=== PATIENT | female | born 1975 | race Caucasian/White ===

== ENCOUNTER → 2016-11-09 | Outpatient (REF) | payer BC, MEDICAID ==
[~2016-11-09] MED LIST: /HCTZ25TA PO; ATOR40TA PO; CLAR10CA3 PO; IBUP600T26 PO; LORT1TAB PO; METF500T PO; NYST100024 TOP; OMEP20CA3 PO; PANT40TA2 PO; VICO5TAB PO
== END ==
LOC: M LAB REF 09:25
PROVIDERS: ATTEND Physician Assistant
DX: R10.11 Right upper quadrant pain (principal); R10.12 Left upper quadrant pain; R19.7 Diarrhea, unspecified

== ENCOUNTER 2016-11-13 09:24 | Emergency (ER) | payer BC, MEDICAID ==
[2016-11-13] MEDS ORDERED: ONDANSETRON 4MG/2ML VIAL (J2405) As Ordered ONE (10:07)
[2016-11-13] MEDS ORDERED: KETOROLAC 30 MG/ML VIAL (J1885) As Ordered ONE (10:07)
[2016-11-13 10:20] LABS: BASO % 0.6 % (0.0-1.0); EOS # 0.2 K/mm3 (0.0-0.50); EOS % 3.6 % (0.0-3.0); LARGE UNSTAINED CELL # 0.1 K/mm3 (0.0-0.4); LARGE UNSTAINED CELL % 1.5 % (0.0-4.0); LYMPH # 1.7 K/mm3 (1.5-4.5); LYMPH % 24.5 % (24.0-44.0); MEAN CORPUSCULAR HGB CONC 34.5 g/dl (32.0-36.5); MEAN CORPUSCULAR VOLUME 98.8 fl (80.0-96.0); MONO # 0.4 K/mm3 (0.0-0.8); MONO % 6.1 % (0.0-5.0); NEUTROPHILS # 4.5 K/mm3 (1.8-7.7); NEUTROPHILS % 63.8 % (36.0-66.0); PLATELET COUNT, AUTOMATED 278 k/mm3 (150-450); RED CELL DISTRIBUTION WIDTH 11.4 % (11.5-14.5); WHITE BLOOD COUNT 7.1 K/mm3 (4.0-10.0)
[2016-11-13 10:34] LABS: ALBUMIN 3.8 GM/DL (3.2-5.2); ALBUMIN/GLOBULIN RATIO 0.97 (1.00-1.93); ALKALINE PHOSPHATASE 81 U/L (45-117); ALT/SGPT 29 U/L (12-78); AMYLASE 44 U/L (25-115); ANION GAP 9 MEQ/L (8-16); AST/SGOT 25 U/L (15-37); BILIRUBIN,DIRECT 0.2 MG/DL (0.0-0.2); BILIRUBIN,TOTAL 0.9 MG/DL (0.2-1.0); BLOOD UREA NITROGEN 11 MG/DL (7-18); CALCIUM LEVEL 8.8 MG/DL (8.5-10.1); CARBON DIOXIDE LEVEL 28 MEQ/L (21-32); CHLORIDE LEVEL 102 MEQ/L (98-107); CREATININE FOR GFR 0.58 MG/DL (0.55-1.02); GLOMERULAR FILTRATION RATE > 60.0 (>58); GLUCOSE, FASTING 88 MG/DL (70-105); POTASSIUM SERUM 3.9 MEQ/L (3.5-5.1); SODIUM LEVEL 139 MEQ/L (136-145); TOTAL PROTEIN 7.7 GM/DL (6.4-8.2)
--- NOTE | 2016-11-13 11:33 | REP ---
Limited abdominal ultrasound of the right upper quadrant 11/13/2016 Indication: biliary colic prior gastric bypass surgery 2 years ago Comparison: CT abdomen pelvis 03/31/2016 Findings: The gallbladder is without stones wall thickening or pericholecystic fluid. The patient was not tender upon scanning over the gallbladder. The common bile duct is 4.3 mm transverse dimension within normal limits. There is a coarse calcification within the posterior right dome of liver which measures 12.3 x 8.7 x 5.1 mm , yet slightly larger in size than that seen on CT abdomen pelvis 03/31/2016. This may be secondary to old granulomatous disease. The liver is without focal lesion. The pancreas is diffusely obscured by bowel gas; also contributed to by large body habitus. The right kidney measures 11.2 x 5.5 x 4.6 cm and is without hydronephrosis. Impression: No evidence of cholelithiasis, gallbladder wall thickening, or pericholecystic fluid. Common bile duct is 4.3 mm transverse dimension within normal limits. Pancreas diffusely obscured by bowel gas/ body habitus. Single focal coarse calcification within the posterior right dome of liver, may represent calcified granuloma Right kidney without hydronephrosis Signed by Alejandra Preciado MD 11/13/2016 11:24 A
--- NOTE | 2016-11-13 11:54 | EDDOCDS ---
Physician Documentation [facility] Name: Elisabet Castañeda Age: 40 yrs Sex: Female : 1975 Arrival Date: 11/13/2016 Time: 09:24 Bed I5 / M5 Private MD: [facility] Disposition: 11/13/16 11:47 Discharged to Home/Self Care. Impression: Upper abdominal pain, unspecified, Abnormal findings on diagnostic imaging of liver and biliary tract - Calcification within posterior right dome of liver on Gallbladder U/S, Diarrhea, unspecified. - Condition is Stable. - Discharge Instructions: Abdominal Pain, Adult, Diarrhea. - Prescriptions for ZOFRAN ODT 4 mg - dissolve 1 tablet by ORAL route 4 times per day As needed do not chew, do not swallow whole; 10 tablet. ketorolac 10 mg Oral Tablet - take 1 tablet by ORAL route 3 times per day As needed MDD- 30mg. Up to 5 days total use.; 15 tablet. Bentyl 20 mg Oral Tablet - take 1 tablet by ORAL route every 6 hours As needed; 20 tablet. - Medication Reconciliation, Local Pharmacy Hours form. - Follow up: [facility] ; When: 1 - 2 days; Reason: Recheck today's complaints, Continuance of care. Follow up: Rigoberto Peña; When: Call to arrange an appointment; Reason: Further diagnostic work-up, Recheck today's complaints, Continuance of care. - Problem is new. - Symptoms have improved. Historical: - Allergies: no known allergies; - Home Meds: 1. Calcium Citrate Oral Unknown daily 2. multivitamin Oral cap 2 tab daily 3. Vitamin B-12 Oral Unknown 4. Vitamin D Oral daily 5. Claritin 10 mg Oral tab 1 tab once daily - PMHx: Diet controlled Diabetes; Seasonal Allergies; - PSHx: Cesearean Section; Uterine Ablation; mass removal left ovary; Gastric Bypass; Appendectomy; - Social history: Smoking status: Patient states former smoker of tobacco. No barriers to communication noted, The patient speaks fluent Turkmen, Speaks appropriately for age. - Family history: Not pertinent. - : The pt / caregiver states he / she is not on anticoagulants. Home medication list is obtained from the patient. - Exposure Risk Screening:: None identified. 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 7 in. (170.18 cm) (R); Pain 10/10; 10:48 BP 119 / 57; Pulse 68; Resp 20; Temp 98.9; Pulse Ox 99% ; Pain 0/10; jam1 11:43 BP 94 / 53; Pulse 57; Resp 20; Temp 98.7; Pulse Ox 98% ; Pain 0/10; jam1 09:27 Body Mass Index 30.23 (87.54 kg, 170.18 cm) mt4 MDM: 09:40 Financial registration complete. lg 09:48 [facility] Payment Agreement was scanned into [employer] and attached to record. lg 09:51 NS 0.9% 1000 ml IV at bolus once ordered. ef1 09:51 Ondansetron 4 mg IVP once ordered. ef1 09:51 ketorolac 30 mg IVP once ordered. ef1 09:51 IV Saline Lock ordered. ef1 09:51 Undress patient appropriately for examination ordered. ef1 09:52 Amylase Ordered. EDMS 09:52 Basic Metabolic Profile Ordered. EDMS 09:52 CBC with Diff Ordered. EDMS 09:52 Lipase Ordered. EDMS 09:52 Liver Profile Ordered. EDMS 09:52 Urinalysis Ordered. EDMS 09:52 Urine Culture Ordered. EDMS 09:53 Gallbladder US Ordered. EDMS 09:53 NOTHING BY MOUTH+DIET ordered. EDMS 10:45 CBC with Diff Reviewed. ef1 10:45 Liver Profile Reviewed. ef1 10:45 Amylase Reviewed. ef1 10:45 Basic Metabolic Profile Reviewed. ef1 10:45 Lipase Reviewed. ef1 10:45 Urinalysis Reviewed. ef1 Administered Medications: 10:10 Drug: NS 0.9% 1000 ml [sodium chloride 0.9 % intravenous solution] Route: IV; Rate: srm bolus; Site: left antecubital; 11:52 Follow up: IV Status: Completed infusion; IV Intake: 1000ml dsf 10:10 Drug: Ondansetron 4 mg [ondansetron HCl 2 mg/mL intravenous solution (2 mL)] Route: srm IVP; Site: left antecubital; 11:15 Follow up: Response: Nausea is resolved srm 10:11 Drug: ketorolac 30 mg [ketorolac 30 mg/mL (1 mL) injection solution (1 mL)] Route: IVP; srm Site: left antecubital; 11:15 Follow up: Response: Pain is resolved srm Signatures: Dispatcher [employer] EDMS Janneth Colon RN RN srm Wiliam Rodarte, Carlos Reg lg Neris Sanderson RN RN kr3 Marycruz Lei, PA-C PA-C ef1 Key Shah RN RN dsf The chart was reviewed and I authenticate all verbal orders and agree with the evaluation and treatment provided.Attachments: 09:48 [facility] Payment Agreement lg MTDD
--- NOTE | 2016-11-13 11:54 | EDDOCDS ---
Nurse's Notes [facility] Name: Elisabet Castañeda Age: 40 yrs Sex: Female : 1975 Arrival Date: 11/13/2016 Time: 09:24 Bed I5 / M5 Private MD: [facility] Diagnosis: Upper abdominal pain, unspecified;Abnormal findings on diagnostic imaging of liver and biliary tract-Calcification within posterior right dome of liver on Gallbladder U/S;Diarrhea, unspecified Presentation: 11/13 09:29 Presenting complaint: Patient states: stomach pains for 2 weeks. Reports constipated kr3 and than diarrhea and than constipated. seen at on Tuesday and had blood and stool evaluated and was told negative results for both. Risk factors: the patient reports no vaginal bleeding. Adult Sepsis Screening: The patient does not have new or worsening altered mentation. Patient's respiratory rate is less than 22. Systolic blood pressure is greater than 100. Patient has a qSOFA score of 0- Negative Sepsis Screen. Suicide/Homicide risk assessment- the patient denies having any suicidal and/or homicidal ideations and does not present with any other emotional, behavioral or mental health complaints. 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 Transition of care: patient was not received from another setting of care. 09:29 Acuity: SAMUEL Level 3 kr3 09:29 Method Of Arrival: Walkin/Carried/Asstd kr3 Triage Assessment: 09:31 General: Appears in no apparent distress, comfortable, Behavior is cooperative. Pain: kr3 Location: right upper quadrant and left upper quadrant Pain currently is 10 out of 10 on a pain scale. Quality of pain is described as sharp, shooting, Is intermittent. HIV screening NA for this visit Offered previously. GI: Reports constipation, diarrhea, nausea, Denies vomiting. Derm: Skin is normal, Reports skin infected around incisions on abdomen. 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 Calcium Citrate Oral Unknown daily 2. multivitamin Oral cap 2 tab daily 3. Vitamin B-12 Oral Unknown 4. Vitamin D Oral daily 5. Claritin 10 mg Oral tab 1 tab once daily - PMHx: Diet controlled Diabetes; Seasonal Allergies; - PSHx: Cesearean Section; Uterine Ablation; mass removal left ovary; Gastric Bypass; Appendectomy; - Social history: Smoking status: Patient states former smoker of tobacco. No barriers to communication noted, The patient speaks fluent Lithuanian, Speaks appropriately for age. - Family history: Not pertinent. - : The pt / caregiver states he / she is not on anticoagulants. Home medication list is obtained from the patient. - Exposure Risk Screening:: None identified. Screenin:02 Screening information is obtained from the patient. Primary language is Lithuanian. Fall jam1 risk: No risks identified. Assistance ADL's: requires no assistance with activities of daily living. Abuse/DV Screen: The patient / caregiver reports he/she is: not in a situation that causes fear, pain or injury. Nutritional screening: No deficits noted. Exposure Risk Screening: None identified. Advance Directives: Currently, there is a health care proxy, ekta castañeda of pt. There is no active DNR order. There is no living will. There is no Power of Assistant Vice President. Advance directive information has not previously been placed in an [facility] medical record. Further advance directive information is declined. home support is adequate. Assessment: 10:13 General: Appears in no apparent distress, Behavior is appropriate for age, cooperative. srm Neurological: No deficits noted. GI: Abdomen is non- distended Bowel sounds present X 4 quads. Abd is soft X 4 quads Abd is tender to palpation in left upper quadrant. Derm: No deficits noted. 11:16 Reassessment: awaiting results and PA re eval. General: Appears in no apparent srm distress, Behavior is appropriate for age, cooperative. Neurological: No deficits noted. EENT: No deficits noted. Cardiovascular: No deficits noted. Respiratory: No deficits noted. 11:52 Adult Sepsis Screening: The patient does not have new or worsening altered mentation. dsf Patient's respiratory rate is less than 22. Systolic blood pressure is greater than 100. Patient has a qSOFA score of 0- Negative Sepsis Screen. General: Appears in no apparent distress, comfortable, Behavior is appropriate for age, cooperative. Pain: Denies pain. Neurological: Level of Consciousness is awake, alert. Cardiovascular: Capillary refill < 3 seconds. Respiratory: Airway is patent Respiratory effort is even, unlabored, Respiratory pattern is regular, symmetrical. Derm: Skin is pink, warm & dry. Vital Signs: 09:27 BP 132 / 62 RA Sitting (auto/reg); Pulse 79 RA; Resp 18 S; Temp 97.2(O); Pulse Ox 100% mt4 on R/A; Weight 87.54 kg (R); Height 5 ft. 7 in. (170.18 cm) (R); Pain 10/10; 10:48 BP 119 / 57; Pulse 68; Resp 20; Temp 98.9; Pulse Ox 99% ; Pain 0/10; jam1 11:43 BP 94 / 53; Pulse 57; Resp 20; Temp 98.7; Pulse Ox 98% ; Pain 0/10; jam1 09:27 Body Mass Index 30.23 (87.54 kg, 170.18 cm) mt4 Vitals: 09:27 Log In Time: November 13, 2016 at 09:24. mi4 ED Course: 09:27 Patient visited by Yolanda Robbins. mt4 09:27 [facility] is Private Physician. mt4 09:27 Patient moved to Waiting mt4 09:28 Patient moved to Pre RCE mt4 09:29 Patient moved to Triage 2 kr3 09:30 Triage Initiated kr3 09:36 Marycruz Lei PA-C is PHCP. ef1 09:36 Casey Hernandez MD is Attending Physician. ef1 09:39 Patient visited by Marycruz Lei PA-C. ef1 09:48 [facility] Payment Agreement was scanned into [employer] and attached to record. lg 09:53 Patient moved to I5 / M5 kr3 10:02 Pt greeted and oriented to ED. Patient advised of names of staff involved in care, [facility] location of call loya, wait times and NPO status. Patient has correct armband on for positive identification. Placed in gown. Bed in low position. Call light in reach. Side rails up X 1. Adult w/ patient. Door closed. 10:05 Inserted saline lock: 20 gauge in left antecubital area and blood collected. srm 10:05 Amylase Sent. srm 10:05 Basic Metabolic Profile Sent. srm 10:05 CBC with Diff Sent. srm 10:06 Lipase Sent. srm 10:06 Liver Profile Sent. srm 10:06 Urinalysis Sent. srm 10:06 Urine Culture Sent. srm 10:10 Patient visited by Marycruz Lei PA-C. ef1 10:14 Patient visited by Janneth Colon RN. srm 10:24 Patient moved to Ultrasound sm5 10:42 Patient moved to I5 / M5 sm5 10:44 Patient visited by Marycruz Lei PA-C. ef1 11:16 Patient visited by Janneth Colon RN. srm 11:34 Gallbladder US Returned. EDMS 11:46 [facility] is Referral Physician. ef1 11:46 Rigoberto Peña is Referral Physician. ef1 11:52 The patient / caregiver is instructed regarding the plan of care and ED course. dsf 11:52 Discontinued lock intact, bleeding controlled, pressure dressing applied, No dsf redness/swelling at site. No procedures done that require assistance. Administered Medications: 10:10 Drug: NS 0.9% 1000 ml [sodium chloride 0.9 % intravenous solution] Route: IV; Rate: srm bolus; Site: left antecubital; 11:52 Follow up: IV Status: Completed infusion; IV Intake: 1000ml dsf 10:10 Drug: Ondansetron 4 mg [ondansetron HCl 2 mg/mL intravenous solution (2 mL)] Route: srm IVP; Site: left antecubital; 11:15 Follow up: Response: Nausea is resolved srm 10:11 Drug: ketorolac 30 mg [ketorolac 30 mg/mL (1 mL) injection solution (1 mL)] Route: IVP; srm Site: left antecubital; 11:15 Follow up: Response: Pain is resolved srm Intake: 11:52 IV: 1000.00ml; Total: 1000.00ml. dsf Order Results: Lab Order: Amylase; SPEC'M 11/13/16 10:03 Test: AMYLASE; Value: 44; Range: 25-115; Units: U/L; Status: F Lab Order: Basic Metabolic Profile; SPEC'M 11/13/16 10:03 Test: GLUCOSE, FASTING; Value: 88; Range: 70-105; Units: MG/DL; Status: F Test: BLOOD UREA NITROGEN; Value: 11; Range: 7-18; Units: MG/DL; Status: F Test: CREATININE FOR GFR; Value: 0.58; Range: 0.55-1.02; Units: MG/DL; Status: F Test: GLOMERULAR FILTRATION RATE; Value: > 60.0; Range: >58; Status: F Test: SODIUM LEVEL; Value: 139; Range: 136-145; Units: MEQ/L; Status: F Test: POTASSIUM SERUM; Value: 3.9; Range: 3.5-5.1; Units: MEQ/L; Status: F Test: CHLORIDE LEVEL; Value: 102; Range: 98-107; Units: MEQ/L; Status: F Test: CARBON DIOXIDE LEVEL; Value: 28; Range: 21-32; Units: MEQ/L; Status: F Test: ANION GAP; Value: 9; Range: 8-16; Units: MEQ/L; Status: F Test: CALCIUM LEVEL; Value: 8.8; Range: 8.5-10.1; Units: MG/DL; Status: F Test Note: ; Units are mL/min/1.73 m2 Chronic Kidney Disease Staging per NKF: Stage I & II GFR >=60 Normal to Mildly Decreased Stage III GFR 30-59 Moderately Decreased Stage IV GFR 15-29 Severely Decreased Stage V GFR <15 Very Little GFR Left ESRD GFR <15 on TELEPHONE ASSEMBLER Lab Order: CBC with Diff; SPEC'M 11/13/16 10:03 Test: WHITE BLOOD COUNT; Value: 7.1; Range: 4.0-10.0; Units: K/mm3; Status: F Test: RED BLOOD COUNT; Value: 4.31; Range: 4.00-5.40; Units: M/mm3; Status: F Test: HEMOGLOBIN; Value: 14.7; Range: 12.0-16.0; Units: g/dl; Status: F Test: HEMATOCRIT; Value: 42.6; Range: 36.0-47.0; Units: %; Status: F Test: MEAN CORPUSCULAR VOLUME; Value: 98.8; Range: 80.0-96.0; Abnormal: Above high normal; Units: fl; Status: F Test: MEAN CORPUSCULAR HEMOGLOBIN; Value: 34.0; Range: 27.0-33.0; Abnormal: Above high normal; Units: pg; Status: F Test: MEAN CORPUSCULAR HGB CONC; Value: 34.5; Range: 32.0-36.5; Units: g/dl; Status: F Test: RED CELL DISTRIBUTION WIDTH; Value: 11.4; Range: 11.5-14.5; Abnormal: Below low normal; Units: %; Status: F Test: PLATELET COUNT, AUTOMATED; Value: 278; Range: 150-450; Units: k/mm3; Status: F Test: NEUTROPHILS %; Value: 63.8; Range: 36.0-66.0; Units: %; Status: F Test: LYMPH %; Value: 24.5; Range: 24.0-44.0; Units: %; Status: F Test: MONO %; Value: 6.1; Range: 0.0-5.0; Abnormal: Above high normal; Units: %; Status: F Test: EOS %; Value: 3.6; Range: 0.0-3.0; Abnormal: Above high normal; Units: %; Status: F Test: BASO %; Value: 0.6; Range: 0.0-1.0; Units: %; Status: F Test: LARGE UNSTAINED CELL %; Value: 1.5; Range: 0.0-4.0; Units: %; Status: F Test: NEUTROPHILS #; Value: 4.5; Range: 1.8-7.7; Units: K/mm3; Status: F Test: LYMPH #; Value: 1.7; Range: 1.5-4.5; Units: K/mm3; Status: F Test: MONO #; Value: 0.4; Range: 0.0-0.8; Units: K/mm3; Status: F Test: EOS #; Value: 0.2; Range: 0.0-0.50; Units: K/mm3; Status: F Test: BASO #; Value: 0.0; Range: 0.0-0.2; Units: K/mm3; Status: F Test: LARGE UNSTAINED CELL #; Value: 0.1; Range: 0.0-0.4; Units: K/mm3; Status: F Lab Order: Lipase; SPEC'M 11/13/16 10:03 Test: LIPASE; Value: 173; Range: 73-393; Units: U/L; Status: F Lab Order: Liver Profile; SPEC'M 11/13/16 10:03 Test: AST/SGOT; Value: 25; Range: 15-37; Units: U/L; Status: F Test: ALT/SGPT; Value: 29; Range: 12-78; Units: U/L; Status: F Test: ALKALINE PHOSPHATASE; Value: 81; Range: 45-117; Units: U/L; Status: F Test: BILIRUBIN,TOTAL; Value: 0.9; Range: 0.2-1.0; Units: MG/DL; Status: F Test: BILIRUBIN,DIRECT; Value: 0.2; Range: 0.0-0.2; Units: MG/DL; Status: F Test: TOTAL PROTEIN; Value: 7.7; Range: 6.4-8.2; Units: GM/DL; Status: F Test: ALBUMIN; Value: 3.8; Range: 3.2-5.2; Units: GM/DL; Status: F Test: ALBUMIN/GLOBULIN RATIO; Value: 0.97; Range: 1.00-1.93; Abnormal: Below low normal; Status: F Lab Order: Urinalysis; SPEC'M 11/13/16 10:03 Test: APPEARANCE, URINE; Value: CLEAR; Range: CLEAR; Status: F Test: COLOR, URINE; Value: YELLOW; Range: YELLOW; Status: F Test: PH,URINE; Value: 7.0; Range: 5.0-9.0; Units: UNITS; Status: F Test: SPECIFIC GRAVITY URINE AUTO; Value: 1.008; Range: 1.002-1.035; Status: F Test: PROTEIN, URINE AUTO; Value: NEGATIVE; Range: NEGATIVE; Units: mg/dL; Status: F Test: GLUCOSE, URINE (UA) AUTO; Value: NEGATIVE; Range: NEGATIVE; Units: mg/dL; Status: F Test: KETONE, URINE AUTO; Value: NEGATIVE; Range: NEGATIVE; Units: mg/dL; Status: F Test: UROBILINOGEN, URINE AUTO; Value: 0.2; Range: 0.0-2.0; Units: mg/dL; Status: F Test: BILIRUBIN, URINE AUTO; Value: NEGATIVE; Range: NEGATIVE; Status: F Test: NITRITE, URINE AUTO; Value: NEGATIVE; Range: NEGATIVE; Status: F Test: LEUKOCYTE ESTERASE, URINE AUTO; Value: NEGATIVE; Range: NEGATIVE; Status: F Test: BLOOD, URINE BLOOD; Value: NEGATIVE; Range: NEGATIVE; Status: F Test: WBC, URINE AUTO; Value: 0; Range: 0-3; Units: /HPF; Status: F Test: RBC, URINE AUTO; Value: 1; Range: 0-3; Units: /HPF; Status: F Test: BACTERIA, URINE AUTO; Value: NEGATIVE; Range: NEGATIVE; Status: F Test: SQUAMOUS EPITHELIAL CELL UR AU; Value: 0; Range: 0-6; Units: /HPF; Status: F Test: HYALINE CAST, URINE AUTO; Value: 0; Range: 0-1; Units: /LPF; Status: F Radiology Order: Gallbladder US Test: Gallbladder US REASON FOR EXAMINATION: Biliary Colic; Limited abdominal ultrasound of the right upper quadrant 11/13/2016; ; Indication: biliary colic prior gastric bypass surgery 2 years ago; ; Comparison: CT abdomen pelvis 03/31/2016; ; Findings: The gallbladder is without stones wall thickening or pericholecystic; fluid. The patient was not tender upon scanning over the gallbladder.; ; The common bile duct is 4.3 mm transverse dimension within normal limits.; ; There is a coarse calcification within the posterior right dome of liver which; measures 12.3 x 8.7 x 5.1 mm , yet slightly larger in size than that seen on CT; abdomen pelvis 03/31/2016. This may be secondary to old granulomatous disease.; The liver is without focal lesion.; ; The pancreas is diffusely obscured by bowel gas; also contributed to by large; body habitus.; ; The right kidney measures 11.2 x 5.5 x 4.6 cm and is without hydronephrosis.; ; Impression:; ; No evidence of cholelithiasis, gallbladder wall thickening, or pericholecystic; fluid. Common bile duct is 4.3 mm transverse dimension within normal limits.; ; Pancreas diffusely obscured by bowel gas/ body habitus.; ; Single focal coarse calcification within the posterior right dome of liver, may; represent calcified granuloma; ; Right kidney without hydronephrosis; ; ; Signed by; Alejandra Preciado MD 11/13/2016 11:24 A; Outcome: 11:47 Discharge ordered by Provider. ef1 11:52 Discharge Assessment: Patient awake, alert and oriented x 3. No cognitive and/or dsf functional deficits noted. Patient verbalized understanding of disposition instructions. patient administered narcotics - no. The following High Risk Discharge criteria are identified: None. Discharged to home ambulatory, with significant other. Condition: stable. Discharge instructions given to patient, Instructed on discharge instructions, follow up and referral plans. medication usage, Demonstrated understanding of instructions, medications, Pt was receptive of discharge instructions/ teaching. Prescriptions given X 3. Ultrasound Study completed. Property sent home with patient. 11:53 Patient left the ED. dsf Signatures: Dispatcher [employer] EDMS Janneth Colon, RN RN srm Wan Caroline, MANAGER APPLICATION DEVELOPMENT MANAGER APPLICATION DEVELOPMENT jam1 Wiliam Rodarte, Reg Reg lg Zaida Napier 5 Neris Sanderson RN RN kr3 Yolanda Robbins mi4 Marycruz Lei, PA-C PA-C ef1 Key Shah,RN RN dsf Corrections: (The following items were deleted from the chart) 09:33 09:29 Presenting complaint: Patient states: stomach pains for 2 weeks. Reports kr3 constipated and than diarrhea and than constipated kr3 MTDD
--- NOTE | 2016-11-15 12:54 | EDDOCDS ---
Nurse's Notes [facility] Name: Elisabet Castañeda Age: 40 yrs Sex: Female : 1975 Arrival Date: 11/13/2016 Time: 09:24 Bed I5 / M5 Private MD: [facility] Diagnosis: Upper abdominal pain, unspecified;Abnormal findings on diagnostic imaging of liver and biliary tract-Calcification within posterior right dome of liver on Gallbladder U/S;Diarrhea, unspecified Presentation: 11/13 09:29 Presenting complaint: Patient states: stomach pains for 2 weeks. Reports constipated kr3 and than diarrhea and than constipated. seen at on Tuesday and had blood and stool evaluated and was told negative results for both. Risk factors: the patient reports no vaginal bleeding. Adult Sepsis Screening: The patient does not have new or worsening altered mentation. Patient's respiratory rate is less than 22. Systolic blood pressure is greater than 100. Patient has a qSOFA score of 0- Negative Sepsis Screen. Suicide/Homicide risk assessment- the patient denies having any suicidal and/or homicidal ideations and does not present with any other emotional, behavioral or mental health complaints. 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 Transition of care: patient was not received from another setting of care. 09:29 Acuity: SAMUEL Level 3 kr3 09:29 Method Of Arrival: Walkin/Carried/Asstd kr3 Triage Assessment: 09:31 General: Appears in no apparent distress, comfortable, Behavior is cooperative. Pain: kr3 Location: right upper quadrant and left upper quadrant Pain currently is 10 out of 10 on a pain scale. Quality of pain is described as sharp, shooting, Is intermittent. HIV screening NA for this visit Offered previously. GI: Reports constipation, diarrhea, nausea, Denies vomiting. Derm: Skin is normal, Reports skin infected around incisions on abdomen. 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 Calcium Citrate Oral Unknown daily 2. multivitamin Oral cap 2 tab daily 3. Vitamin B-12 Oral Unknown 4. Vitamin D Oral daily 5. Claritin 10 mg Oral tab 1 tab once daily - PMHx: Diet controlled Diabetes; Seasonal Allergies; - PSHx: Cesearean Section; Uterine Ablation; mass removal left ovary; Gastric Bypass; Appendectomy; - Social history: Smoking status: Patient states former smoker of tobacco. No barriers to communication noted, The patient speaks fluent Chinese, Speaks appropriately for age. - Family history: Not pertinent. - : The pt / caregiver states he / she is not on anticoagulants. Home medication list is obtained from the patient. - Exposure Risk Screening:: None identified. Screenin:02 Screening information is obtained from the patient. Primary language is Chinese. Fall jam1 risk: No risks identified. Assistance ADL's: requires no assistance with activities of daily living. Abuse/DV Screen: The patient / caregiver reports he/she is: not in a situation that causes fear, pain or injury. Nutritional screening: No deficits noted. Exposure Risk Screening: None identified. Advance Directives: Currently, there is a health care proxy, ekta castañeda of pt. There is no active DNR order. There is no living will. There is no Power of Service Desk Associate. Advance directive information has not previously been placed in an [facility] medical record. Further advance directive information is declined. home support is adequate. Assessment: 10:13 General: Appears in no apparent distress, Behavior is appropriate for age, cooperative. srm Neurological: No deficits noted. GI: Abdomen is non- distended Bowel sounds present X 4 quads. Abd is soft X 4 quads Abd is tender to palpation in left upper quadrant. Derm: No deficits noted. 11:16 Reassessment: awaiting results and PA re eval. General: Appears in no apparent srm distress, Behavior is appropriate for age, cooperative. Neurological: No deficits noted. EENT: No deficits noted. Cardiovascular: No deficits noted. Respiratory: No deficits noted. 11:52 Adult Sepsis Screening: The patient does not have new or worsening altered mentation. dsf Patient's respiratory rate is less than 22. Systolic blood pressure is greater than 100. Patient has a qSOFA score of 0- Negative Sepsis Screen. General: Appears in no apparent distress, comfortable, Behavior is appropriate for age, cooperative. Pain: Denies pain. Neurological: Level of Consciousness is awake, alert. Cardiovascular: Capillary refill < 3 seconds. Respiratory: Airway is patent Respiratory effort is even, unlabored, Respiratory pattern is regular, symmetrical. Derm: Skin is pink, warm & dry. Vital Signs: 09:27 BP 132 / 62 RA Sitting (auto/reg); Pulse 79 RA; Resp 18 S; Temp 97.2(O); Pulse Ox 100% mt4 on R/A; Weight 87.54 kg (R); Height 5 ft. 7 in. (170.18 cm) (R); Pain 10/10; 10:48 BP 119 / 57; Pulse 68; Resp 20; Temp 98.9; Pulse Ox 99% ; Pain 0/10; jam1 11:43 BP 94 / 53; Pulse 57; Resp 20; Temp 98.7; Pulse Ox 98% ; Pain 0/10; jam1 09:27 Body Mass Index 30.23 (87.54 kg, 170.18 cm) mt4 Vitals: 09:27 Log In Time: November 13, 2016 at 09:24. nh4 ED Course: 09:27 Patient visited by Yolanda Robbins. mt4 09:27 [facility] is Private Physician. mt4 09:27 Patient moved to Waiting mt4 09:28 Patient moved to Pre RCE mt4 09:29 Patient moved to Triage 2 kr3 09:30 Triage Initiated kr3 09:36 Marycruz Lei PA-C is PHCP. ef1 09:36 Casey Hernandez MD is Attending Physician. ef1 09:39 Patient visited by Marycruz Lei PA-C. ef1 09:48 [facility] Payment Agreement was scanned into [employer] and attached to record. lg 09:53 Patient moved to I5 / M5 kr3 10:02 Pt greeted and oriented to ED. Patient advised of names of staff involved in care, [facility] location of call loya, wait times and NPO status. Patient has correct armband on for positive identification. Placed in gown. Bed in low position. Call light in reach. Side rails up X 1. Adult w/ patient. Door closed. 10:05 Inserted saline lock: 20 gauge in left antecubital area and blood collected. srm 10:05 Amylase Sent. srm 10:05 Basic Metabolic Profile Sent. srm 10:05 CBC with Diff Sent. srm 10:06 Lipase Sent. srm 10:06 Liver Profile Sent. srm 10:06 Urinalysis Sent. srm 10:06 Urine Culture Sent. srm 10:10 Patient visited by Marycruz Lei PA-C. ef1 10:14 Patient visited by Janneth Colon RN. srm 10:24 Patient moved to Ultrasound sm5 10:42 Patient moved to I5 / M5 sm5 10:44 Patient visited by Marycruz Lei PA-C. ef1 11:16 Patient visited by Janneth Colon RN. srm 11:34 Gallbladder US Returned. EDMS 11:46 [facility] is Referral Physician. ef1 11:46 Rigoberto Peña is Referral Physician. ef1 11:52 The patient / caregiver is instructed regarding the plan of care and ED course. dsf 11:52 Discontinued lock intact, bleeding controlled, pressure dressing applied, No dsf redness/swelling at site. No procedures done that require assistance. 14:39 T-Sheet-- Draft Copy was scanned into [employer] and attached to record. gb 14:39 Radiology Report was scanned into [employer] and attached to record. gb Administered Medications: 10:10 Drug: NS 0.9% 1000 ml [sodium chloride 0.9 % intravenous solution] Route: IV; Rate: srm bolus; Site: left antecubital; 11:52 Follow up: IV Status: Completed infusion; IV Intake: 1000ml dsf 10:10 Drug: Ondansetron 4 mg [ondansetron HCl 2 mg/mL intravenous solution (2 mL)] Route: srm IVP; Site: left antecubital; 11:15 Follow up: Response: Nausea is resolved srm 10:11 Drug: ketorolac 30 mg [ketorolac 30 mg/mL (1 mL) injection solution (1 mL)] Route: IVP; srm Site: left antecubital; 11:15 Follow up: Response: Pain is resolved srm Intake: 11:52 IV: 1000.00ml; Total: 1000.00ml. dsf Order Results: Lab Order: Amylase; SPEC'M 11/13/16 10:03 Test: AMYLASE; Value: 44; Range: 25-115; Units: U/L; Status: F Lab Order: Basic Metabolic Profile; SPEC'M 11/13/16 10:03 Test: GLUCOSE, FASTING; Value: 88; Range: 70-105; Units: MG/DL; Status: F Test: BLOOD UREA NITROGEN; Value: 11; Range: 7-18; Units: MG/DL; Status: F Test: CREATININE FOR GFR; Value: 0.58; Range: 0.55-1.02; Units: MG/DL; Status: F Test: GLOMERULAR FILTRATION RATE; Value: > 60.0; Range: >58; Status: F Test: SODIUM LEVEL; Value: 139; Range: 136-145; Units: MEQ/L; Status: F Test: POTASSIUM SERUM; Value: 3.9; Range: 3.5-5.1; Units: MEQ/L; Status: F Test: CHLORIDE LEVEL; Value: 102; Range: 98-107; Units: MEQ/L; Status: F Test: CARBON DIOXIDE LEVEL; Value: 28; Range: 21-32; Units: MEQ/L; Status: F Test: ANION GAP; Value: 9; Range: 8-16; Units: MEQ/L; Status: F Test: CALCIUM LEVEL; Value: 8.8; Range: 8.5-10.1; Units: MG/DL; Status: F Test Note: ; Units are mL/min/1.73 m2 Chronic Kidney Disease Staging per NKF: Stage I & II GFR >=60 Normal to Mildly Decreased Stage III GFR 30-59 Moderately Decreased Stage IV GFR 15-29 Severely Decreased Stage V GFR <15 Very Little GFR Left ESRD GFR <15 on EARLY CHILDHOOD SPECIALIST Lab Order: CBC with Diff; SPEC'M 11/13/16 10:03 Test: WHITE BLOOD COUNT; Value: 7.1; Range: 4.0-10.0; Units: K/mm3; Status: F Test: RED BLOOD COUNT; Value: 4.31; Range: 4.00-5.40; Units: M/mm3; Status: F Test: HEMOGLOBIN; Value: 14.7; Range: 12.0-16.0; Units: g/dl; Status: F Test: HEMATOCRIT; Value: 42.6; Range: 36.0-47.0; Units: %; Status: F Test: MEAN CORPUSCULAR VOLUME; Value: 98.8; Range: 80.0-96.0; Abnormal: Above high normal; Units: fl; Status: F Test: MEAN CORPUSCULAR HEMOGLOBIN; Value: 34.0; Range: 27.0-33.0; Abnormal: Above high normal; Units: pg; Status: F Test: MEAN CORPUSCULAR HGB CONC; Value: 34.5; Range: 32.0-36.5; Units: g/dl; Status: F Test: RED CELL DISTRIBUTION WIDTH; Value: 11.4; Range: 11.5-14.5; Abnormal: Below low normal; Units: %; Status: F Test: PLATELET COUNT, AUTOMATED; Value: 278; Range: 150-450; Units: k/mm3; Status: F Test: NEUTROPHILS %; Value: 63.8; Range: 36.0-66.0; Units: %; Status: F Test: LYMPH %; Value: 24.5; Range: 24.0-44.0; Units: %; Status: F Test: MONO %; Value: 6.1; Range: 0.0-5.0; Abnormal: Above high normal; Units: %; Status: F Test: EOS %; Value: 3.6; Range: 0.0-3.0; Abnormal: Above high normal; Units: %; Status: F Test: BASO %; Value: 0.6; Range: 0.0-1.0; Units: %; Status: F Test: LARGE UNSTAINED CELL %; Value: 1.5; Range: 0.0-4.0; Units: %; Status: F Test: NEUTROPHILS #; Value: 4.5; Range: 1.8-7.7; Units: K/mm3; Status: F Test: LYMPH #; Value: 1.7; Range: 1.5-4.5; Units: K/mm3; Status: F Test: MONO #; Value: 0.4; Range: 0.0-0.8; Units: K/mm3; Status: F Test: EOS #; Value: 0.2; Range: 0.0-0.50; Units: K/mm3; Status: F Test: BASO #; Value: 0.0; Range: 0.0-0.2; Units: K/mm3; Status: F Test: LARGE UNSTAINED CELL #; Value: 0.1; Range: 0.0-0.4; Units: K/mm3; Status: F Lab Order: Lipase; SPEC'M 11/13/16 10:03 Test: LIPASE; Value: 173; Range: 73-393; Units: U/L; Status: F Lab Order: Liver Profile; SPEC'M 11/13/16 10:03 Test: AST/SGOT; Value: 25; Range: 15-37; Units: U/L; Status: F Test: ALT/SGPT; Value: 29; Range: 12-78; Units: U/L; Status: F Test: ALKALINE PHOSPHATASE; Value: 81; Range: 45-117; Units: U/L; Status: F Test: BILIRUBIN,TOTAL; Value: 0.9; Range: 0.2-1.0; Units: MG/DL; Status: F Test: BILIRUBIN,DIRECT; Value: 0.2; Range: 0.0-0.2; Units: MG/DL; Status: F Test: TOTAL PROTEIN; Value: 7.7; Range: 6.4-8.2; Units: GM/DL; Status: F Test: ALBUMIN; Value: 3.8; Range: 3.2-5.2; Units: GM/DL; Status: F Test: ALBUMIN/GLOBULIN RATIO; Value: 0.97; Range: 1.00-1.93; Abnormal: Below low normal; Status: F Lab Order: Urinalysis; SPEC'M 11/13/16 10:03 Test: APPEARANCE, URINE; Value: CLEAR; Range: CLEAR; Status: F Test: COLOR, URINE; Value: YELLOW; Range: YELLOW; Status: F Test: PH,URINE; Value: 7.0; Range: 5.0-9.0; Units: UNITS; Status: F Test: SPECIFIC GRAVITY URINE AUTO; Value: 1.008; Range: 1.002-1.035; Status: F Test: PROTEIN, URINE AUTO; Value: NEGATIVE; Range: NEGATIVE; Units: mg/dL; Status: F Test: GLUCOSE, URINE (UA) AUTO; Value: NEGATIVE; Range: NEGATIVE; Units: mg/dL; Status: F Test: KETONE, URINE AUTO; Value: NEGATIVE; Range: NEGATIVE; Units: mg/dL; Status: F Test: UROBILINOGEN, URINE AUTO; Value: 0.2; Range: 0.0-2.0; Units: mg/dL; Status: F Test: BILIRUBIN, URINE AUTO; Value: NEGATIVE; Range: NEGATIVE; Status: F Test: NITRITE, URINE AUTO; Value: NEGATIVE; Range: NEGATIVE; Status: F Test: LEUKOCYTE ESTERASE, URINE AUTO; Value: NEGATIVE; Range: NEGATIVE; Status: F Test: BLOOD, URINE BLOOD; Value: NEGATIVE; Range: NEGATIVE; Status: F Test: WBC, URINE AUTO; Value: 0; Range: 0-3; Units: /HPF; Status: F Test: RBC, URINE AUTO; Value: 1; Range: 0-3; Units: /HPF; Status: F Test: BACTERIA, URINE AUTO; Value: NEGATIVE; Range: NEGATIVE; Status: F Test: SQUAMOUS EPITHELIAL CELL UR AU; Value: 0; Range: 0-6; Units: /HPF; Status: F Test: HYALINE CAST, URINE AUTO; Value: 0; Range: 0-1; Units: /LPF; Status: F Lab Order: Urine Culture; SPEC'M 11/13/16 10:03 Test: URINE CULTURE; Value: URINE CULTURE RESULT NO GROWTH; Status: F Radiology Order: Gallbladder US Test: Gallbladder US REASON FOR EXAMINATION: Biliary Colic; Limited abdominal ultrasound of the right upper quadrant 11/13/2016; ; Indication: biliary colic prior gastric bypass surgery 2 years ago; ; Comparison: CT abdomen pelvis 03/31/2016; ; Findings: The gallbladder is without stones wall thickening or pericholecystic; fluid. The patient was not tender upon scanning over the gallbladder.; ; The common bile duct is 4.3 mm transverse dimension within normal limits.; ; There is a coarse calcification within the posterior right dome of liver which; measures 12.3 x 8.7 x 5.1 mm , yet slightly larger in size than that seen on CT; abdomen pelvis 03/31/2016. This may be secondary to old granulomatous disease.; The liver is without focal lesion.; ; The pancreas is diffusely obscured by bowel gas; also contributed to by large; body habitus.; ; The right kidney measures 11.2 x 5.5 x 4.6 cm and is without hydronephrosis.; ; Impression:; ; No evidence of cholelithiasis, gallbladder wall thickening, or pericholecystic; fluid. Common bile duct is 4.3 mm transverse dimension within normal limits.; ; Pancreas diffusely obscured by bowel gas/ body habitus.; ; Single focal coarse calcification within the posterior right dome of liver, may; represent calcified granuloma; ; Right kidney without hydronephrosis; ; ; Signed by; Alejandra Preciado MD 11/13/2016 11:24 A; Outcome: 11:47 Discharge ordered by Provider. ef1 11:52 Discharge Assessment: Patient awake, alert and oriented x 3. No cognitive and/or dsf functional deficits noted. Patient verbalized understanding of disposition instructions. patient administered narcotics - no. The following High Risk Discharge criteria are identified: None. Discharged to home ambulatory, with significant other. Condition: stable. Discharge instructions given to patient, Instructed on discharge instructions, follow up and referral plans. medication usage, Demonstrated understanding of instructions, medications, Pt was receptive of discharge instructions/ teaching. Prescriptions given X 3. Ultrasound Study completed. Property sent home with patient. 11:53 Patient left the ED. dsf Signatures: Dispatcher [employer] EDMS Janneth Colon, RN RN srm Caroline Blas, FLIGHT ATTENDANT INFLIGHT SERVICES FLIGHT ATTENDANT INFLIGHT SERVICES jam1 Minna Restrepo, Reg Reg gb Wiliam Rodarte, Reg Reg lg Zaida Napier sm5 Neris Sanderson RN RN kr3 Yolanda Robbins mt4 Marycruz Lei, PA-C PA-C ef1 Key Shah RN RN dsf Corrections: (The following items were deleted from the chart) 09:33 09:29 Presenting complaint: Patient states: stomach pains for 2 weeks. Reports kr3 constipated and than diarrhea and than constipated kr3 Chart Complete MTDD
--- NOTE | 2016-11-15 12:54 | EDDOCDS ---
Physician Documentation [facility] Name: Elisabet Castañeda Age: 40 yrs Sex: Female : 1975 Arrival Date: 11/13/2016 Time: 09:24 Bed I5 / M5 Private MD: [facility] Disposition: 11/13/16 11:47 Discharged to Home/Self Care. Impression: Upper abdominal pain, unspecified, Abnormal findings on diagnostic imaging of liver and biliary tract - Calcification within posterior right dome of liver on Gallbladder U/S, Diarrhea, unspecified. - Condition is Stable. - Discharge Instructions: Abdominal Pain, Adult, Diarrhea. - Prescriptions for ZOFRAN ODT 4 mg - dissolve 1 tablet by ORAL route 4 times per day As needed do not chew, do not swallow whole; 10 tablet. ketorolac 10 mg Oral Tablet - take 1 tablet by ORAL route 3 times per day As needed MDD- 30mg. Up to 5 days total use.; 15 tablet. Bentyl 20 mg Oral Tablet - take 1 tablet by ORAL route every 6 hours As needed; 20 tablet. - Medication Reconciliation, Local Pharmacy Hours form. - [facility]: [facility] ; When: 1 - 2 days; Reason: Recheck today's complaints, Continuance of care. Follow up: Rigoberto Peña; When: Call to arrange an appointment; Reason: Further diagnostic work-up, Recheck today's complaints, Continuance of care. - Problem is new. - Symptoms have improved. Historical: - Allergies: no known allergies; - Home Meds: 1. Calcium Citrate Oral Unknown daily 2. multivitamin Oral cap 2 tab daily 3. Vitamin B-12 Oral Unknown 4. Vitamin D Oral daily 5. Claritin 10 mg Oral tab 1 tab once daily - PMHx: Diet controlled Diabetes; Seasonal Allergies; - PSHx: Cesearean Section; Uterine Ablation; mass removal left ovary; Gastric Bypass; Appendectomy; - Social history: Smoking status: Patient states former smoker of tobacco. No barriers to communication noted, The patient speaks fluent Bulgarian, Speaks appropriately for age. - Family history: Not pertinent. - : The pt / caregiver states he / she is not on anticoagulants. Home medication list is obtained from the patient. - Exposure Risk Screening:: None identified. 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 7 in. (170.18 cm) (R); Pain 10/10; 10:48 BP 119 / 57; Pulse 68; Resp 20; Temp 98.9; Pulse Ox 99% ; Pain 0/10; jam1 11:43 BP 94 / 53; Pulse 57; Resp 20; Temp 98.7; Pulse Ox 98% ; Pain 0/10; jam1 09:27 Body Mass Index 30.23 (87.54 kg, 170.18 cm) mt4 MDM: 09:40 Financial registration complete. lg 09:48 [facility] Payment Agreement was scanned into [employer] and attached to record. lg 09:51 NS 0.9% 1000 ml IV at bolus once ordered. ef1 09:51 Ondansetron 4 mg IVP once ordered. ef1 09:51 ketorolac 30 mg IVP once ordered. ef1 09:51 IV Saline Lock ordered. ef1 09:51 Undress patient appropriately for examination ordered. ef1 09:52 Amylase Ordered. EDMS 09:52 Basic Metabolic Profile Ordered. EDMS 09:52 CBC with Diff Ordered. EDMS 09:52 Lipase Ordered. EDMS 09:52 Liver Profile Ordered. EDMS 09:52 Urinalysis Ordered. EDMS 09:52 Urine Culture Ordered. EDMS 09:53 Gallbladder US Ordered. EDMS 09:53 NOTHING BY MOUTH+DIET ordered. EDMS 10:45 CBC with Diff Reviewed. ef1 10:45 Liver Profile Reviewed. ef1 10:45 Amylase Reviewed. ef1 10:45 Basic Metabolic Profile Reviewed. ef1 10:45 Lipase Reviewed. ef1 10:45 Urinalysis Reviewed. ef1 14:39 T-Sheet-- Draft Copy was scanned into [employer] and attached to record. gb 14:39 Radiology Report was scanned into [employer] and attached to record. gb Administered Medications: 10:10 Drug: NS 0.9% 1000 ml [sodium chloride 0.9 % intravenous solution] Route: IV; Rate: srm bolus; Site: left antecubital; 11:52 Follow up: IV Status: Completed infusion; IV Intake: 1000ml dsf 10:10 Drug: Ondansetron 4 mg [ondansetron HCl 2 mg/mL intravenous solution (2 mL)] Route: srm IVP; Site: left antecubital; 11:15 Follow up: Response: Nausea is resolved srm 10:11 Drug: ketorolac 30 mg [ketorolac 30 mg/mL (1 mL) injection solution (1 mL)] Route: IVP; srm Site: left antecubital; 11:15 Follow up: Response: Pain is resolved srm Signatures: Dispatcher [employer] EDMS Janneth Colon, RN RN srm OneljuliareillyLoren singha, Reg Reg gb Wiliam Rodarte, Reg Reg lg Neris Sanderson RN RN kr3 Marycruz Lei, PA-C PA-C ef1 Key Shah RN RN dsf The chart was reviewed and I authenticate all verbal orders and agree with the evaluation and treatment provided.Attachments: 09:48 [facility] Payment Agreement lg 14:39 T-Sheet-- Draft Copy Chart Complete [facility]
--- NOTE | 2016-11-15 12:54 | EDDOCDS ---
Physician Documentation [facility] Name: Elisabet Castañeda Age: 40 yrs Sex: Female : 1975 Arrival Date: 11/13/2016 Time: 09:24 Bed I5 / M5 Private MD: [facility] Disposition: 11/13/16 11:47 Discharged to Home/Self Care. Impression: Upper abdominal pain, unspecified, Abnormal findings on diagnostic imaging of liver and biliary tract - Calcification within posterior right dome of liver on Gallbladder U/S, Diarrhea, unspecified. - Condition is Stable. - Discharge Instructions: Abdominal Pain, Adult, Diarrhea. - Prescriptions for ZOFRAN ODT 4 mg - dissolve 1 tablet by ORAL route 4 times per day As needed do not chew, do not swallow whole; 10 tablet. ketorolac 10 mg Oral Tablet - take 1 tablet by ORAL route 3 times per day As needed MDD- 30mg. Up to 5 days total use.; 15 tablet. Bentyl 20 mg Oral Tablet - take 1 tablet by ORAL route every 6 hours As needed; 20 tablet. - Medication Reconciliation, Local Pharmacy Hours form. - Follow up: [facility] ; When: 1 - 2 days; Reason: Recheck today's complaints, Continuance of care. Follow up: Rigoberto Peña; When: Call to arrange an appointment; Reason: Further diagnostic work-up, Recheck today's complaints, Continuance of care. - Problem is new. - Symptoms have improved. Historical: - Allergies: no known allergies; - Home Meds: 1. Calcium Citrate Oral Unknown daily 2. multivitamin Oral cap 2 tab daily 3. Vitamin B-12 Oral Unknown 4. Vitamin D Oral daily 5. Claritin 10 mg Oral tab 1 tab once daily - PMHx: Diet controlled Diabetes; Seasonal Allergies; - PSHx: Cesearean Section; Uterine Ablation; mass removal left ovary; Gastric Bypass; Appendectomy; - Social history: Smoking status: Patient states former smoker of tobacco. No barriers to communication noted, The patient speaks fluent Yi, Speaks appropriately for age. - Family history: Not pertinent. - : The pt / caregiver states he / she is not on anticoagulants. Home medication list is obtained from the patient. - Exposure Risk Screening:: None identified. 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 7 in. (170.18 cm) (R); Pain 10/10; 10:48 BP 119 / 57; Pulse 68; Resp 20; Temp 98.9; Pulse Ox 99% ; Pain 0/10; jam1 11:43 BP 94 / 53; Pulse 57; Resp 20; Temp 98.7; Pulse Ox 98% ; Pain 0/10; jam1 09:27 Body Mass Index 30.23 (87.54 kg, 170.18 cm) mt4 MDM: 09:40 Financial registration complete. lg 09:48 [facility] Payment Agreement was scanned into [employer] and attached to record. lg 09:51 NS 0.9% 1000 ml IV at bolus once ordered. ef1 09:51 Ondansetron 4 mg IVP once ordered. ef1 09:51 ketorolac 30 mg IVP once ordered. ef1 09:51 IV Saline Lock ordered. ef1 09:51 Undress patient appropriately for examination ordered. ef1 09:52 Amylase Ordered. EDMS 09:52 Basic Metabolic Profile Ordered. EDMS 09:52 CBC with Diff Ordered. EDMS 09:52 Lipase Ordered. EDMS 09:52 Liver Profile Ordered. EDMS 09:52 Urinalysis Ordered. EDMS 09:52 Urine Culture Ordered. EDMS 09:53 Gallbladder US Ordered. EDMS 09:53 NOTHING BY MOUTH+DIET ordered. EDMS 10:45 CBC with Diff Reviewed. ef1 10:45 Liver Profile Reviewed. ef1 10:45 Amylase Reviewed. ef1 10:45 Basic Metabolic Profile Reviewed. ef1 10:45 Lipase Reviewed. ef1 10:45 Urinalysis Reviewed. ef1 14:39 T-Sheet-- Draft Copy was scanned into [employer] and attached to record. gb 14:39 Radiology Report was scanned into [employer] and attached to record. gb Administered Medications: 10:10 Drug: NS 0.9% 1000 ml [sodium chloride 0.9 % intravenous solution] Route: IV; Rate: srm bolus; Site: left antecubital; 11:52 Follow up: IV Status: Completed infusion; IV Intake: 1000ml dsf 10:10 Drug: Ondansetron 4 mg [ondansetron HCl 2 mg/mL intravenous solution (2 mL)] Route: srm IVP; Site: left antecubital; 11:15 Follow up: Response: Nausea is resolved srm 10:11 Drug: ketorolac 30 mg [ketorolac 30 mg/mL (1 mL) injection solution (1 mL)] Route: IVP; srm Site: left antecubital; 11:15 Follow up: Response: Pain is resolved srm Signatures: Dispatcher MedHost EDMS Janneth Colon, RN RN srm OneljuliareillyLoren singha, Reg Reg gb Wiliam Rodarte, Reg Reg lg Neris Sanderson RN RN kr3 Marycruz Lei, PA-C PA-C ef1 Key Shah RN RN dsf The chart was reviewed and I authenticate all verbal orders and agree with the evaluation and treatment provided.Attachments: 09:48 [facility] Payment Agreement lg 14:39 T-Sheet-- Draft Copy Chart Complete [facility]
== END 2016-11-13 11:53 | disposition home or self-care (01) ==
LOC: M ED 09:24
DX: R10.10 Upper abdominal pain, unspecified (principal); K76.89 Other specified diseases of liver; R19.7 Diarrhea, unspecified; R11.0 Nausea; E11.9 Type 2 diabetes mellitus without complications; J30.2 Other seasonal allergic rhinitis; Z87.891 Personal history of nicotine dependence; Z79.899 Other long term (current) drug therapy; Z98.84 Bariatric surgery status
CPT/HCPCS: 36415; 76705; 80048; 80076; 81001; 82150; 83690; 85025; 87086; 96361; 96374; 96375; 99284; J1885; J2405

== ENCOUNTER 2016-11-16 14:17 | Emergency (ER) | payer BC, MEDICAID ==
[2016-11-16] MEDS ORDERED: ONDANSETRON 4MG/2ML VIAL (J2405) As Ordered ONE (16:24)
[2016-11-16] MEDS ORDERED: MORPHINE 4 MG/ML 1ML SYRINGE As Ordered ONE (16:24)
[2016-11-16 16:44] LABS: BASO # 0.2 K/mm3 (0.0-0.2); BASO % 1.9 % (0.0-1.0); EOS # 0.3 K/mm3 (0.0-0.50); EOS % 3.3 % (0.0-3.0); LARGE UNSTAINED CELL # 0.2 K/mm3 (0.0-0.4); LARGE UNSTAINED CELL % 2.2 % (0.0-4.0); LYMPH # 2.2 K/mm3 (1.5-4.5); LYMPH % 25.5 % (24.0-44.0); MEAN CORPUSCULAR HEMOGLOBIN 33.5 pg (27.0-33.0); MEAN CORPUSCULAR HGB CONC 33.9 g/dl (32.0-36.5); MEAN CORPUSCULAR VOLUME 98.9 fl (80.0-96.0); MONO # 0.5 K/mm3 (0.0-0.8); MONO % 5.9 % (0.0-5.0); NEUTROPHILS # 4.8 K/mm3 (1.8-7.7); NEUTROPHILS % 61.2 % (36.0-66.0); PLATELET COUNT, AUTOMATED 211 k/mm3 (150-450); RED CELL DISTRIBUTION WIDTH 12.6 % (11.5-14.5); WHITE BLOOD COUNT 7.8 K/mm3 (4.0-10.0)
[2016-11-16 17:06] LABS: ALBUMIN 3.1 GM/DL (3.2-5.2); ALBUMIN/GLOBULIN RATIO 1.19 (1.00-1.93); ALKALINE PHOSPHATASE 55 U/L (45-117); ALT/SGPT 22 U/L (12-78); AMYLASE 30 U/L (25-115); ANION GAP 8 MEQ/L (8-16); AST/SGOT 18 U/L (15-37); BILIRUBIN,DIRECT 0.1 MG/DL (0.0-0.2); BILIRUBIN,TOTAL 0.3 MG/DL (0.2-1.0); BLOOD UREA NITROGEN 24 MG/DL (7-18); CALCIUM LEVEL 8.1 MG/DL (8.5-10.1); CARBON DIOXIDE LEVEL 26 MEQ/L (21-32); CHLORIDE LEVEL 108 MEQ/L (98-107); CREATININE FOR GFR 0.54 MG/DL (0.55-1.02); GLOMERULAR FILTRATION RATE > 60.0 (>58); GLUCOSE, FASTING 100 MG/DL (70-105); POTASSIUM SERUM 4.1 MEQ/L (3.5-5.1); SODIUM LEVEL 142 MEQ/L (136-145); TOTAL PROTEIN 5.7 GM/DL (6.4-8.2)
[2016-11-16] MEDS ORDERED: ISOVUE-370 76% 100ML VIAL (Q9967) As Ordered ONE (17:19)
--- NOTE | 2016-11-16 18:26 | REP ---
CT ABDOMEN AND PELVIS WITH IV CONTRAST: TECHNIQUE: Axial contrast enhanced images from the lung bases to the pubic symphysis using 100 mL Isovue 370 intravenous contrast material with multiplanar reformations with sagittal and coronal reconstruction images. COMPARISON: 03/31/2016 Visualized lung bases demonstrate no infiltrate. Liver, spleen, adrenals, pancreas and kidneys appear unremarkable. There is no hydronephrosis. Gallbladder is unremarkable. There is no abdominal aortic aneurysm. I see no adenopathy. I see no free air or free fluid. No bowel wall thickening is seen. There is no evidence of diverticulitis. Pelvic structure appear unchanged. 2.2 cm cystic structure of the right ovary is unchanged since prior exam. No new pelvic mass is seen. Urinary bladder is mildly distended and grossly unremarkable. I see no anterior abdominal hernia. There does appear to be a small hiatal hernia. Small calcification is seen in the liver. IMPRESSION: No acute abnormality is identified as discussed in detail above. No evidence of diverticulitis or other acute bowel abnormality. No free air or free fluid. Signed by Jose Antonio Hernandez MD 11/16/2016 07:59 P
[2016-11-16] MEDS ORDERED: SUCRALFATE 1 GM TAB As Ordered ONE (18:50)
[2016-11-16] MEDS ORDERED: PANTOPRAZOLE 40MG TAB (PROTONIX) As Ordered ONE (18:50)
--- NOTE | 2016-11-16 19:02 | EDDOCDS ---
Nurse's Notes [facility] Name: Elisabet Castañeda Age: 41 yrs Sex: Female : 1975 Arrival Date: 11/16/2016 Time: 14:17 Bed I2 / M2 Private MD: Timothy Hull Diagnosis: Generalized abdominal pain-Likely bleeding ulcers;Anemia, unspecified-Chronic Presentation: 11/16 14:21 Presenting complaint: Patient states: Pt reports being seen here on Tuesday and ead referred to general surgery. "I woke up yesterday with really smelly gas, and then this morning I had black stools and light red blood.". Adult Sepsis Screening: The patient does not have new or worsening altered mentation. Patient's respiratory rate is less than 22. Systolic blood pressure is greater than 100. Patient has a qSOFA score of 0- Negative Sepsis Screen. Suicide/Homicide risk assessment- the patient denies having any suicidal and/or homicidal ideations and does not present with any other emotional, behavioral or mental health complaints. 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 Transition of care: patient was not received from another setting of care. 14:21 Acuity: SAMUEL Level 3 ead 14:21 Method Of Arrival: Walkin/Carried/Asstd ead Triage Assessment: 14:24 General: Appears in no apparent distress, comfortable, Behavior is appropriate for age, ead cooperative. Pain: Denies pain. HIV screening NA for this visit Offered previously. GI: Reports black stools Denies nausea, vomiting, pain. Derm: Skin is pink, warm & dry. 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 Vitamin D Oral daily 2. Vitamin B-12 Oral Unknown 3. multivitamin Oral cap 2 tab daily 4. Claritin 10 mg Oral tab 1 tab once daily 5. ketorolac 10 mg Oral tab three times a day as needed (Last dose: 11/14/2016) 6. dicyclomine 20 mg Oral tab 4 times per day (Last dose: 11/16/2016) 7. Zofran (as hydrochloride) 4 mg ODT Oral tab (Last dose: 11/16/2016 08:00) - PMHx: Diet controlled Diabetes; Seasonal Allergies; - PSHx: Uterine Ablation; Gastric Bypass; mass removal left ovary; Cesearean Section; Appendectomy; - Social history: Smoking status: Patient states former smoker of tobacco. No barriers to communication noted, The patient speaks fluent Liberian, Speaks appropriately for age. - Family history: Not pertinent. - : The pt / caregiver states he / she is not on anticoagulants. Home medication list is obtained from the patient, [employer] import data, pill bottles. - Exposure Risk Screening:: None identified. Screenin:01 Screening information is obtained from the patient. Primary language is Liberian. Fall jam1 risk: No risks identified. Assistance ADL's: requires no assistance with activities of daily living. Abuse/DV Screen: The patient / caregiver reports he/she is: not in a situation that causes fear, pain or injury. Nutritional screening: No deficits noted. Exposure Risk Screening: None identified. Advance Directives: Currently, there is no health care proxy. There is no active DNR order. There is no living will. There is no Power of Seasonal Recruiter. Advance directive information has not previously been placed in an [facility] medical record. Further advance directive information is declined. home support is adequate. Assessment: 16:31 General: Appears in no apparent distress, Behavior is appropriate for age, cooperative. srm Neurological: No deficits noted. EENT: No deficits noted. Respiratory: No deficits noted. GI: Abdomen is non- distended Bowel sounds present X 4 quads. Abd is soft and non tender X 4 quads. Reports black stools. 17:35 Reassessment: Patient appears in no apparent distress at this time. Patient states srm feeling better. Patient states symptoms have improved. 18:59 General: Appears in no apparent distress, comfortable, obese, Behavior is appropriate ms18 for age, cooperative, pleasant. Pain: Denies pain. Neurological: No deficits noted. Respiratory: Airway is patent Respiratory effort is even, unlabored. GI: Abdomen is non- distended obese. Derm: Skin is pink, warm & dry. Vital Signs: 14:18 BP 105 / 57; Pulse 96; Resp 18 S; Temp 98.6(O); Pulse Ox 100% on R/A; Weight 87.54 kg dd6 (R); Height 5 ft. 7 in. (170.18 cm) (R); 17:35 BP 125 / 63; Pulse 86; Resp 18; Pulse Ox 100% ; Pain 0/10; srm 18:35 BP 115 / 62; Pulse 83; Resp 20; Temp 98.3; Pulse Ox 100% ; Pain 0/10; jam1 14:18 Body Mass Index 30.23 (87.54 kg, 170.18 cm) dd6 Vitals: 14:18 Log In Time: November 16, 2016 at 14:16. dd6 ED Course: 14:18 Patient visited by Robert Osorio PCA. dd6 14:18 Timothy Hull DO is Private Physician. dd6 14:18 Patient moved to Waiting dd6 14:19 Patient moved to Pre RCE dd6 14:22 Triage Initiated ead 14:34 Patient moved to Triage 2 kr3 15:30 Marycruz Lei PA-C is PHCP. ef1 15:30 Lesley Phillips MD is Attending Physician. ef1 15:30 Patient visited by Marycruz Lei PA-C. ef1 15:50 Patient moved to I2 / M2 kr3 15:52 Urinalysis Sent. mdr 15:52 Urine Culture Sent. mdr 16:01 Pt greeted and oriented to ED. Patient advised of names of staff involved in care, jam1 location of call loya, wait times and NPO status. Patient has correct armband on for positive identification. Placed in gown. Bed in low position. Call light in reach. Side rails up X 1. Adult w/ patient. Door closed. 16:08 Patient visited by Marycruz Lei PA-C. ef1 16:23 Amylase Sent. srm 16:23 Basic Metabolic Profile Sent. srm 16:23 CBC with Diff Sent. srm 16:23 Lipase Sent. srm 16:23 Liver Profile Sent. srm 16:23 Inserted saline lock: 20 gauge in right antecubital area and blood collected. srm 16:31 The patient / caregiver is instructed regarding the plan of care and ED course. srm 16:32 Patient visited by Janneth Colon RN. srm 17:07 Patient visited by Marycruz Lei PA-C. ef1 17:13 [facility] Payment Agreement was scanned into [employer] and attached to record. zo 17:35 Patient visited by Janneth Colon RN. srm 17:42 Patient visited by Caroline Blas PCA. jam1 18:31 CT ABD & PELVIS: IV Contrast Only Returned. EDMS 18:32 PHCP role handed off by Marycruz Lei PA-C cc10 18:32 Jose Armando Bonilla PA-C is PHCP. cc10 18:32 Patient visited by Jose Armando Bonilla PA-C. cc10 18:59 Property sent home with patient. :Personal belongings accompany Pt. ms18 18:59 Discontinued IV lock intact, bleeding controlled, pressure dressing applied, No ms18 redness/swelling at site. No procedures done that require assistance. Administered Medications: 16:26 Drug: NS 0.9% 1000 ml [sodium chloride 0.9 % intravenous solution] Route: IV; Rate: srm bolus; Site: right antecubital; 16:26 Drug: Ondansetron 4 mg [ondansetron HCl 2 mg/mL intravenous solution (2 mL)] Route: srm IVP; Site: right antecubital; 17:35 Follow up: Response: Nausea is resolved srm 16:28 Drug: morphine 4 mg [morphine 4 mg/mL intravenous cartridge (1 mL)] Route: IVP; Site: srm right antecubital; 17:35 Follow up: BP 125 / 63; Pulse 86 bpm; Resp 18 bpm; Pulse Ox 100% ; Pain 0/10 Adult srm 18:43 CANCELLED (Other Intervention Used): omeprazole Delayed Release Capsule 20 mg PO once; cc10 swallow whole (do not crush or chew) OR open capsule, sprinkle contents over tablespoonful applesauce; swallow all immediately/do not chew pellets 18:58 Drug: Pantoprazole 40 mg [pantoprazole 40 mg tablet,delayed release (1 tabs)] Route: PO;ms18 18:59 Drug: Sucralfate 1 grams [sucralfate 1 gram tablet (1 tabs)] Route: PO; ms18 Order Results: Lab Order: Amylase; SPEC'M 11/16/16 16:19 Test: AMYLASE; Value: 30; Range: 25-115; Units: U/L; Status: F Lab Order: Basic Metabolic Profile; SPEC'M 11/16/16 16:19 Test: GLUCOSE, FASTING; Value: 100; Range: 70-105; Units: MG/DL; Status: F Test: BLOOD UREA NITROGEN; Value: 24; Range: 7-18; Abnormal: Above high normal; Units: MG/DL; Status: F Test: CREATININE FOR GFR; Value: 0.54; Range: 0.55-1.02; Abnormal: Below low normal; Units: MG/DL; Status: F Test: GLOMERULAR FILTRATION RATE; Value: > 60.0; Range: >58; Status: F Test: SODIUM LEVEL; Value: 142; Range: 136-145; Units: MEQ/L; Status: F Test: POTASSIUM SERUM; Value: 4.1; Range: 3.5-5.1; Units: MEQ/L; Status: F Test: CHLORIDE LEVEL; Value: 108; Range: 98-107; Abnormal: Above high normal; Units: MEQ/L; Status: F Test: CARBON DIOXIDE LEVEL; Value: 26; Range: 21-32; Units: MEQ/L; Status: F Test: ANION GAP; Value: 8; Range: 8-16; Units: MEQ/L; Status: F Test: CALCIUM LEVEL; Value: 8.1; Range: 8.5-10.1; Abnormal: Below low normal; Units: MG/DL; Status: F Test Note: ; Units are mL/min/1.73 m2 Chronic Kidney Disease Staging per NKF: Stage I & II GFR >=60 Normal to Mildly Decreased Stage III GFR 30-59 Moderately Decreased Stage IV GFR 15-29 Severely Decreased Stage V GFR <15 Very Little GFR Left ESRD GFR <15 on BUCKLE ASSEMBLER Lab Order: CBC with Diff; SPEC'M 11/16/16 16:19 Test: WHITE BLOOD COUNT; Value: 7.8; Range: 4.0-10.0; Units: K/mm3; Status: F Test: RED BLOOD COUNT; Value: 2.75; Range: 4.00-5.40; Abnormal: Below low normal; Units: M/mm3; Status: F Test: HEMOGLOBIN; Value: 9.2; Range: 12.0-16.0; Abnormal: Below low normal; Units: g/dl; Status: F Test: HEMATOCRIT; Value: 27.2; Range: 36.0-47.0; Abnormal: Below low normal; Units: %; Status: F Test: MEAN CORPUSCULAR VOLUME; Value: 98.9; Range: 80.0-96.0; Abnormal: Above high normal; Units: fl; Status: F Test: MEAN CORPUSCULAR HEMOGLOBIN; Value: 33.5; Range: 27.0-33.0; Abnormal: Above high normal; Units: pg; Status: F Test: MEAN CORPUSCULAR HGB CONC; Value: 33.9; Range: 32.0-36.5; Units: g/dl; Status: F Test: RED CELL DISTRIBUTION WIDTH; Value: 12.6; Range: 11.5-14.5; Units: %; Status: F Test: PLATELET COUNT, AUTOMATED; Value: 211; Range: 150-450; Units: k/mm3; Status: F Test: NEUTROPHILS %; Value: 61.2; Range: 36.0-66.0; Units: %; Status: F Test: LYMPH %; Value: 25.5; Range: 24.0-44.0; Units: %; Status: F Test: MONO %; Value: 5.9; Range: 0.0-5.0; Abnormal: Above high normal; Units: %; Status: F Test: EOS %; Value: 3.3; Range: 0.0-3.0; Abnormal: Above high normal; Units: %; Status: F Test: BASO %; Value: 1.9; Range: 0.0-1.0; Abnormal: Above high normal; Units: %; Status: F Test: LARGE UNSTAINED CELL %; Value: 2.2; Range: 0.0-4.0; Units: %; Status: F Test: NEUTROPHILS #; Value: 4.8; Range: 1.8-7.7; Units: K/mm3; Status: F Test: LYMPH #; Value: 2.2; Range: 1.5-4.5; Units: K/mm3; Status: F Test: MONO #; Value: 0.5; Range: 0.0-0.8; Units: K/mm3; Status: F Test: EOS #; Value: 0.3; Range: 0.0-0.50; Units: K/mm3; Status: F Test: BASO #; Value: 0.2; Range: 0.0-0.2; Units: K/mm3; Status: F Test: LARGE UNSTAINED CELL #; Value: 0.2; Range: 0.0-0.4; Units: K/mm3; Status: F Lab Order: Lipase; [facility] 11/16/16 16:19 Test: LIPASE; Value: 113; Range: 73-393; Units: U/L; Status: F Lab Order: Liver Profile; [facility] 11/16/16 16:19 Test: AST/SGOT; Value: 18; Range: 15-37; Units: U/L; Status: F Test: ALT/SGPT; Value: 22; Range: 12-78; Units: U/L; Status: F Test: ALKALINE PHOSPHATASE; Value: 55; Range: 45-117; Units: U/L; Status: F Test: BILIRUBIN,TOTAL; Value: 0.3; Range: 0.2-1.0; Units: MG/DL; Status: F Test: BILIRUBIN,DIRECT; Value: 0.1; Range: 0.0-0.2; Units: MG/DL; Status: F Test: TOTAL PROTEIN; Value: 5.7; Range: 6.4-8.2; Abnormal: Below low normal; Units: GM/DL; Status: F Test: ALBUMIN; Value: 3.1; Range: 3.2-5.2; Abnormal: Below low normal; Units: GM/DL; Status: F Test: ALBUMIN/GLOBULIN RATIO; Value: 1.19; Range: 1.00-1.93; Status: F Lab Order: Urinalysis; [facility] 11/16/16 15:50 Test: APPEARANCE, URINE; Value: CLEAR; Range: CLEAR; Status: F Test: COLOR, URINE; Value: YELLOW; Range: YELLOW; Status: F Test: PH,URINE; Value: 5.0; Range: 5.0-9.0; Units: UNITS; Status: F Test: SPECIFIC GRAVITY URINE AUTO; Value: 1.020; Range: 1.002-1.035; Status: F Test: PROTEIN, URINE AUTO; Value: NEGATIVE; Range: NEGATIVE; Units: mg/dL; Status: F Test: GLUCOSE, URINE (UA) AUTO; Value: NEGATIVE; Range: NEGATIVE; Units: mg/dL; Status: F Test: KETONE, URINE AUTO; Value: NEGATIVE; Range: NEGATIVE; Units: mg/dL; Status: F Test: UROBILINOGEN, URINE AUTO; Value: 0.2; Range: 0.0-2.0; Units: mg/dL; Status: F Test: BILIRUBIN, URINE AUTO; Value: NEGATIVE; Range: NEGATIVE; Status: F Test: NITRITE, URINE AUTO; Value: NEGATIVE; Range: NEGATIVE; Status: F Test: LEUKOCYTE ESTERASE, URINE AUTO; Value: NEGATIVE; Range: NEGATIVE; Status: F Test: BLOOD, URINE BLOOD; Value: NEGATIVE; Range: NEGATIVE; Status: F Test: WBC, URINE AUTO; Value: 1; Range: 0-3; Units: /HPF; Status: F Test: RBC, URINE AUTO; Value: 3; Range: 0-3; Units: /HPF; Status: F Test: BACTERIA, URINE AUTO; Value: NEGATIVE; Range: NEGATIVE; Status: F Test: SQUAMOUS EPITHELIAL CELL UR AU; Value: 0; Range: 0-6; Units: /HPF; Status: F Test: HYALINE CAST, URINE AUTO; Value: 0; Range: 0-1; Units: /LPF; Status: F Radiology Order: CT ABD & PELVIS: IV Contrast Only Test: CT ABD & PELVIS: IV Contrast Only REASON FOR EXAMINATION: Diverticulitis; CT ABDOMEN AND PELVIS WITH IV CONTRAST:; ; TECHNIQUE: Axial contrast enhanced images from the lung bases to the pubic; symphysis using 100 mL Isovue 370 intravenous contrast material with multiplanar; reformations with sagittal and coronal reconstruction images.; ; COMPARISON: 03/31/2016; ; Visualized lung bases demonstrate no infiltrate.; ; Liver, spleen, adrenals, pancreas and kidneys appear unremarkable. There is no; hydronephrosis. Gallbladder is unremarkable. There is no abdominal aortic; aneurysm. I see no adenopathy. I see no free air or free fluid. No bowel wall; thickening is seen. There is no evidence of diverticulitis. Pelvic structure; appear unchanged. 2.2 cm cystic structure of the right ovary is unchanged since; prior exam. No new pelvic mass is seen. Urinary bladder is mildly distended and; grossly unremarkable. I see no anterior abdominal hernia. There does appear to be; a small hiatal hernia. Small calcification is seen in the liver.; ; IMPRESSION:; No acute abnormality is identified as discussed in detail above. No evidence of; diverticulitis or other acute bowel abnormality. No free air or free fluid.; ; Unreviewed; Outcome: 18:39 Discharge ordered by Provider. cc10 18:59 Discharge Assessment: Patient awake, alert and oriented x 3. No cognitive and/or ms18 functional deficits noted. Patient verbalized understanding of disposition instructions. patient administered narcotics - no. The following High Risk Discharge criteria are identified: None. Discharged to home ambulatory. Condition: good Condition: stable Condition: improved. Discharge instructions given to patient, Instructed on discharge instructions, follow up and referral plans. medication usage, Demonstrated understanding of instructions, medications, Pt was receptive of discharge instructions/ teaching. Prescriptions given X 2. CT Study completed. 19:00 Patient left the ED. ms18 Signatures: Dispatcher Med[employer] EDMS Janneth Colon, RN RN tariq Blas Caroline, NEW BUSINESS CLERK NEW BUSINESS CLERK jam1 Neris Sanderson RN RN kr3 Bre Newman Daniell, NEW BUSINESS CLERK NEW BUSINESS CLERK dd6 Marycruz Lei PA-C PA-C ef1 Varsha Camacho RN RN eaJose Armando Mercado PA-C PA-C cc10 Bridgette Esparza RN RN ms18 Greg Mcdermott, NEW BUSINESS CLERK NEW BUSINESS CLERK mdr MTDD
--- NOTE | 2016-11-16 19:02 | EDDOCDS ---
Physician Documentation [facility] Name: Elisabet Castañeda Age: 41 yrs Sex: Female : 1975 Arrival Date: 11/16/2016 Time: 14:17 Bed I2 / M2 Private MD: Timothy uHll Disposition: 11/16/16 18:39 Discharged to Home/Self Care. Impression: Generalized abdominal pain - Likely bleeding ulcers, Anemia, unspecified - Chronic. - Condition is Stable. - Discharge Instructions: Peptic Ulcer Disease. - Prescriptions for omeprazole 20 mg Oral capsule,delayed release(DR/EC) - take 1 capsule by ORAL route 2 times per day; 60 capsule. Carafate 1 gram Oral Tablet - take 1 tablet by ORAL route 4 times per day take on an empty stomach, beginning on waking and last dose at bedtime; 100 tablet. - Medication Reconciliation, Local Pharmacy Hours form. - Follow up: Emergency Department; When: As needed. Follow up: Private Physician; When: Call to arrange an appointment; Reason: Wound/Symptom Recheck, Recheck today's complaints, Worsening of conditions, Continuance of care. - Problem is an ongoing problem. - Symptoms have improved. - Notes: Call Dr. Anne in the morning for follow up from today's visit. Stop taking NSAID medications. You need an upper endoscopy. Historical: - Allergies: no known allergies; - Home Meds: 1. Vitamin D Oral daily 2. Vitamin B-12 Oral Unknown 3. multivitamin Oral cap 2 tab daily 4. Claritin 10 mg Oral tab 1 tab once daily 5. ketorolac 10 mg Oral tab three times a day as needed (Last dose: 11/14/2016) 6. dicyclomine 20 mg Oral tab 4 times per day (Last dose: 11/16/2016) 7. Zofran (as hydrochloride) 4 mg ODT Oral tab (Last dose: 11/16/2016 08:00) - PMHx: Diet controlled Diabetes; Seasonal Allergies; - PSHx: Uterine Ablation; Gastric Bypass; mass removal left ovary; Cesearean Section; Appendectomy; - Social history: Smoking status: Patient states former smoker of tobacco. No barriers to communication noted, The patient speaks fluent Japanese, Speaks appropriately for age. - Family history: Not pertinent. - : The pt / caregiver states he / she is not on anticoagulants. Home medication list is obtained from the patient, [employer] import data, pill bottles. - Exposure Risk Screening:: None identified. NURSE TRANSITIONAL: 11/16 14:24 LMP N/A - Uterine ablation ead Vital Signs: 14:18 BP 105 / 57; Pulse 96; Resp 18 S; Temp 98.6(O); Pulse Ox 100% on R/A; Weight 87.54 kg / dd6 192.99 lbs (R); Height 5 ft. 7 in. (170.18 cm) (R); 17:35 BP 125 / 63; Pulse 86; Resp 18; Pulse Ox 100% ; Pain 0/10; srm 18:35 BP 115 / 62; Pulse 83; Resp 20; Temp 98.3; Pulse Ox 100% ; Pain 0/10; jam1 14:18 Body Mass Index 30.23 (87.54 kg, 170.18 cm) dd6 MDM: 15:44 NS 0.9% 1000 ml IV at bolus once ordered. ef1 15:44 IV Saline Lock ordered. ef1 15:44 Undress patient appropriately for examination ordered. ef1 15:44 Ondansetron 4 mg IVP once ordered. ef1 15:44 morphine 4 mg IVP once ordered. ef1 15:46 Amylase Ordered. EDMS 15:46 Basic Metabolic Profile Ordered. EDMS 15:46 CBC with Diff Ordered. EDMS 15:46 Lipase Ordered. EDMS 15:46 Liver Profile Ordered. EDMS 15:46 Urinalysis Ordered. EDMS 15:46 Urine Culture Ordered. EDMS 15:46 NOTHING BY MOUTH+DIET ordered. EDMS 15:46 CT ABD & PELVIS: IV Contrast Only Ordered. EDMS 17:00 Financial registration complete. zo 17:07 CBC with Diff Reviewed. ef1 17:07 Urinalysis Reviewed. ef1 17:08 Basic Metabolic Profile Reviewed. ef1 17:08 Liver Profile Reviewed. ef1 17:08 Amylase Reviewed. ef1 17:08 Lipase Reviewed. ef1 17:13 [facility] Agreement was scanned into [email or web address] and attached to record. zo 18:42 Sucralfate 1 grams PO once ordered. cc10 18:43 Pantoprazole 40 mg PO once ordered. cc10 Administered Medications: 16:26 Drug: NS 0.9% 1000 ml [sodium chloride 0.9 % intravenous solution] Route: IV; Rate: srm bolus; Site: right antecubital; 16:26 Drug: Ondansetron 4 mg [ondansetron HCl 2 mg/mL intravenous solution (2 mL)] Route: srm IVP; Site: right antecubital; 17:35 Follow up: Response: Nausea is resolved [facility] 16:28 Drug: morphine 4 mg [morphine 4 mg/mL intravenous cartridge (1 mL)] Route: IVP; Site: srm right antecubital; 17:35 Follow up: BP 125 / 63; Pulse 86 bpm; Resp 18 bpm; Pulse Ox 100% ; Pain 0/10 Adult srm 18:43 CANCELLED (Other Intervention Used): omeprazole Delayed Release Capsule 20 mg PO once; cc10 swallow whole (do not crush or chew) OR open capsule, sprinkle contents over tablespoonful applesauce; swallow all immediately/do not chew pellets 18:58 Drug: Pantoprazole 40 mg [pantoprazole 40 mg tablet,delayed release (1 tabs)] Route: PO;ms18 18:59 Drug: Sucralfate 1 grams [sucralfate 1 gram tablet (1 tabs)] Route: PO; ms18 Signatures: Dispatcher [employer] EDMS Janneth Colon RN RN srm Bre Newman Erica, PA-C PAMayela ef1 Varsha Camacho RN RN Jose Armando Chavez PA-C PAMayela cc10 Bridgette Esparza RN RN ms18 The chart was reviewed and I authenticate all verbal orders and agree with the evaluation and treatment provided.Corrections: (The following items were deleted from the chart) 18:43 18:42 omeprazole Delayed Release Capsule 20 mg PO once; swallow whole (do not crush or cc10 chew) OR open capsule, sprinkle contents over tablespoonful applesauce; swallow all immediately/do not chew pellets ordered. cc10 Attachments: 17:13 [facility] [place] Agreement zo MTDD
--- NOTE | 2016-11-18 20:02 | EDDOCDS ---
Physician Documentation [facility] Name: Elisabet Castañeda Age: 41 yrs Sex: Female : 1975 Arrival Date: 11/16/2016 Time: 14:17 Bed I2 / M2 Private MD: Timothy Hull Disposition: 11/16/16 18:39 Discharged to Home/Self Care. Impression: Generalized abdominal pain - Likely bleeding ulcers, Anemia, unspecified - Chronic. - Condition is Stable. - Discharge Instructions: Peptic Ulcer Disease. - Prescriptions for omeprazole 20 mg Oral capsule,delayed release(DR/EC) - take 1 capsule by ORAL route 2 times per day; 60 capsule. Carafate 1 gram Oral Tablet - take 1 tablet by ORAL route 4 times per day take on an empty stomach, beginning on waking and last dose at bedtime; 100 tablet. - Medication Reconciliation, Local Pharmacy Hours form. - Follow up: Emergency Department; When: As needed. Follow up: Private Physician; When: Call to arrange an appointment; Reason: Wound/Symptom Recheck, Recheck today's complaints, Worsening of conditions, Continuance of care. - Problem is an ongoing problem. - Symptoms have improved. - Notes: Call Dr. Anne in the morning for follow up from today's visit. Stop taking NSAID medications. You need an upper endoscopy. Historical: - Allergies: no known allergies; - Home Meds: 1. Vitamin D Oral daily 2. Vitamin B-12 Oral Unknown 3. multivitamin Oral cap 2 tab daily 4. Claritin 10 mg Oral tab 1 tab once daily 5. ketorolac 10 mg Oral tab three times a day as needed (Last dose: 11/14/2016) 6. dicyclomine 20 mg Oral tab 4 times per day (Last dose: 11/16/2016) 7. Zofran (as hydrochloride) 4 mg ODT Oral tab (Last dose: 11/16/2016 08:00) - PMHx: Diet controlled Diabetes; Seasonal Allergies; - PSHx: Uterine Ablation; Gastric Bypass; mass removal left ovary; Cesearean Section; Appendectomy; - Social history: Smoking status: Patient states former smoker of tobacco. No barriers to communication noted, The patient speaks fluent Amharic, Speaks appropriately for age. - Family history: Not pertinent. - : The pt / caregiver states he / she is not on anticoagulants. Home medication list is obtained from the patient, [employer] import data, pill bottles. - Exposure Risk Screening:: None identified. 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 7 in. (170.18 cm) (R); 17:35 BP 125 / 63; Pulse 86; Resp 18; Pulse Ox 100% ; Pain 0/10; srm 18:35 BP 115 / 62; Pulse 83; Resp 20; Temp 98.3; Pulse Ox 100% ; Pain 0/10; jam1 14:18 Body Mass Index 30.23 (87.54 kg, 170.18 cm) dd6 MDM: 15:44 NS 0.9% 1000 ml IV at bolus once ordered. ef1 15:44 IV Saline Lock ordered. ef1 15:44 Undress patient appropriately for examination ordered. ef1 15:44 Ondansetron 4 mg IVP once ordered. ef1 15:44 morphine 4 mg IVP once ordered. ef1 15:46 Amylase Ordered. EDMS 15:46 Basic Metabolic Profile Ordered. EDMS 15:46 CBC with Diff Ordered. EDMS 15:46 Lipase Ordered. EDMS 15:46 Liver Profile Ordered. EDMS 15:46 Urinalysis Ordered. EDMS 15:46 Urine Culture Ordered. EDMS 15:46 NOTHING BY MOUTH+DIET ordered. EDMS 15:46 CT ABD & PELVIS: IV Contrast Only Ordered. EDMS 17:00 Financial registration complete. zo 17:07 CBC with Diff Reviewed. ef1 17:07 Urinalysis Reviewed. ef1 17:08 Basic Metabolic Profile Reviewed. ef1 17:08 Liver Profile Reviewed. ef1 17:08 Amylase Reviewed. ef1 17:08 Lipase Reviewed. ef1 17:13 [facility] Payment Agreement was scanned into [employer] and attached to record. zo 18:42 Sucralfate 1 grams PO once ordered. cc10 18:43 Pantoprazole 40 mg PO once ordered. cc10 11/17 03:13 T-Sheet-- Draft Copy was scanned into [employer] and attached to record. hs2 Administered Medications: 11/16 16:26 Drug: NS 0.9% 1000 ml [sodium chloride 0.9 % intravenous solution] Route: IV; Rate: srm bolus; Site: right antecubital; 16:26 Drug: Ondansetron 4 mg [ondansetron HCl 2 mg/mL intravenous solution (2 mL)] Route: srm IVP; Site: right antecubital; 17:35 Follow up: Response: Nausea is resolved srm 16:28 Drug: morphine 4 mg [morphine 4 mg/mL intravenous cartridge (1 mL)] Route: IVP; Site: srm right antecubital; 17:35 Follow up: BP 125 / 63; Pulse 86 bpm; Resp 18 bpm; Pulse Ox 100% ; Pain 0/10 Adult srm 18:43 CANCELLED (Other Intervention Used): omeprazole Delayed Release Capsule 20 mg PO once; cc10 swallow whole (do not crush or chew) OR open capsule, sprinkle contents over tablespoonful applesauce; swallow all immediately/do not chew pellets 18:58 Drug: Pantoprazole 40 mg [pantoprazole 40 mg tablet,delayed release (1 tabs)] Route: PO;ms18 18:59 Drug: Sucralfate 1 grams [sucralfate 1 gram tablet (1 tabs)] Route: PO; ms18 Signatures: Dispatcher [employer] Janneth Powell RN RN [facility] Bre Newman Erica, PA-C PA-C ef1 Varsha Camacho RN RN ead Coniski, Colin, PA-C PA-C cc10 Bridgette Esparza RN RN ms18 Devora Guerrero, Reg Reg hs2 The chart was reviewed and I authenticate all verbal orders and agree with the evaluation and treatment provided.Corrections: (The following items were deleted from the chart) 18:43 18:42 omeprazole Delayed Release Capsule 20 mg PO once; swallow whole (do not crush or cc10 chew) OR open capsule, sprinkle contents over tablespoonful applesauce; swallow all immediately/do not chew pellets ordered. cc10 Attachments: 17:13 [facility] Payment Agreement zo 11/17 03:13 T-Sheet-- Draft Copy hs2 Chart Complete MTDD
--- NOTE | 2016-11-18 20:02 | EDDOCDS ---
Nurse's Notes [facility] Name: Elisabet Castañeda Age: 41 yrs Sex: Female : 1975 Arrival Date: 11/16/2016 Time: 14:17 Bed I2 / M2 Private MD: Timothy Hull Diagnosis: Generalized abdominal pain-Likely bleeding ulcers;Anemia, unspecified-Chronic Presentation: 11/16 14:21 Presenting complaint: Patient states: Pt reports being seen here on Tuesday and ead referred to general surgery. "I woke up yesterday with really smelly gas, and then this morning I had black stools and light red blood.". Adult Sepsis Screening: The patient does not have new or worsening altered mentation. Patient's respiratory rate is less than 22. Systolic blood pressure is greater than 100. Patient has a qSOFA score of 0- Negative Sepsis Screen. Suicide/Homicide risk assessment- the patient denies having any suicidal and/or homicidal ideations and does not present with any other emotional, behavioral or mental health complaints. 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 Transition of care: patient was not received from another setting of care. 14:21 Acuity: SAMUEL Level 3 ead 14:21 Method Of Arrival: Walkin/Carried/Asstd ead Triage Assessment: 14:24 General: Appears in no apparent distress, comfortable, Behavior is appropriate for age, ead cooperative. Pain: Denies pain. HIV screening NA for this visit Offered previously. GI: Reports black stools Denies nausea, vomiting, pain. Derm: Skin is pink, warm & dry. 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 Vitamin D Oral daily 2. Vitamin B-12 Oral Unknown 3. multivitamin Oral cap 2 tab daily 4. Claritin 10 mg Oral tab 1 tab once daily 5. ketorolac 10 mg Oral tab three times a day as needed (Last dose: 11/14/2016) 6. dicyclomine 20 mg Oral tab 4 times per day (Last dose: 11/16/2016) 7. Zofran (as hydrochloride) 4 mg ODT Oral tab (Last dose: 11/16/2016 08:00) - PMHx: Diet controlled Diabetes; Seasonal Allergies; - PSHx: Uterine Ablation; Gastric Bypass; mass removal left ovary; Cesearean Section; Appendectomy; - Social history: Smoking status: Patient states former smoker of tobacco. No barriers to communication noted, The patient speaks fluent Burmese, Speaks appropriately for age. - Family history: Not pertinent. - : The pt / caregiver states he / she is not on anticoagulants. Home medication list is obtained from the patient, [employer] import data, pill bottles. - Exposure Risk Screening:: None identified. Screenin:01 Screening information is obtained from the patient. Primary language is Burmese. Fall jam1 risk: No risks identified. Assistance ADL's: requires no assistance with activities of daily living. Abuse/DV Screen: The patient / caregiver reports he/she is: not in a situation that causes fear, pain or injury. Nutritional screening: No deficits noted. Exposure Risk Screening: None identified. Advance Directives: Currently, there is no health care proxy. There is no active DNR order. There is no living will. 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 Advance directive information has not previously been placed in an [facility] medical record. Further advance directive information is declined. home support is adequate. Assessment: 16:31 General: Appears in no apparent distress, Behavior is appropriate for age, cooperative. srm Neurological: No deficits noted. EENT: No deficits noted. Respiratory: No deficits noted. GI: Abdomen is non- distended Bowel sounds present X 4 quads. Abd is soft and non tender X 4 quads. Reports black stools. 17:35 Reassessment: Patient appears in no apparent distress at this time. Patient states srm feeling better. Patient states symptoms have improved. 18:59 General: Appears in no apparent distress, comfortable, obese, Behavior is appropriate ms18 for age, cooperative, pleasant. Pain: Denies pain. Neurological: No deficits noted. Respiratory: Airway is patent Respiratory effort is even, unlabored. GI: Abdomen is non- distended obese. Derm: Skin is pink, warm & dry. Vital Signs: 14:18 BP 105 / 57; Pulse 96; Resp 18 S; Temp 98.6(O); Pulse Ox 100% on R/A; Weight 87.54 kg dd6 (R); Height 5 ft. 7 in. (170.18 cm) (R); 17:35 BP 125 / 63; Pulse 86; Resp 18; Pulse Ox 100% ; Pain 0/10; srm 18:35 BP 115 / 62; Pulse 83; Resp 20; Temp 98.3; Pulse Ox 100% ; Pain 0/10; jam1 14:18 Body Mass Index 30.23 (87.54 kg, 170.18 cm) dd6 Vitals: 14:18 Log In Time: November 16, 2016 at 14:16. dd6 ED Course: 14:18 Patient visited by Robert Osorio PCA. dd6 14:18 Timothy Hull DO is Private Physician. dd6 14:18 Patient moved to Waiting dd6 14:19 Patient moved to Pre RCE dd6 14:22 Triage Initiated ead 14:34 Patient moved to Triage 2 kr3 15:30 Marycruz Lei PA-C is PHCP. ef1 15:30 Lesley Phillips MD is Attending Physician. ef1 15:30 Patient visited by Marycruz Lei PA-C. ef1 15:50 Patient moved to I2 / M2 kr3 15:52 Urinalysis Sent. mdr 15:52 Urine Culture Sent. mdr 16:01 Pt greeted and oriented to ED. Patient advised of names of staff involved in care, jam1 location of call loya, wait times and NPO status. Patient has correct armband on for positive identification. Placed in gown. Bed in low position. Call light in reach. Side rails up X 1. Adult w/ patient. Door closed. 16:08 Patient visited by Marycruz Lei PA-C. ef1 16:23 Amylase Sent. srm 16:23 Basic Metabolic Profile Sent. srm 16:23 CBC with Diff Sent. srm 16:23 Lipase Sent. srm 16:23 Liver Profile Sent. srm 16:23 Inserted saline lock: 20 gauge in right antecubital area and blood collected. srm 16:31 The patient / caregiver is instructed regarding the plan of care and ED course. srm 16:32 Patient visited by Janneth Colon RN. srm 17:07 Patient visited by Marycruz Lei PA-C. ef1 17:13 [facility] Payment Agreement was scanned into [employer] and attached to record. zo 17:35 Patient visited by Janneth Colon RN. srm 17:42 Patient visited by Caroline Blas PCA. [email or web address] 18:31 CT ABD & PELVIS: IV Contrast Only Returned. EDMS 18:32 PHCP role handed off by Marycruz Lei PA-C cc10 18:32 Jose Armando Bonilla PA-C is PHCP. cc10 18:32 Patient visited by Jose Armando Bonilla PA-C. cc10 18:59 Property sent home with patient. :Personal belongings accompany Pt. ms18 18:59 Discontinued IV lock intact, bleeding controlled, pressure dressing applied, No ms18 redness/swelling at site. No procedures done that require assistance. 11/17 03:13 T-Sheet-- Draft Copy was scanned into [employer] and attached to record. hs2 Administered Medications: 11/16 16:26 Drug: NS 0.9% 1000 ml [sodium chloride 0.9 % intravenous solution] Route: IV; Rate: srm bolus; Site: right antecubital; 16:26 Drug: Ondansetron 4 mg [ondansetron HCl 2 mg/mL intravenous solution (2 mL)] Route: srm IVP; Site: right antecubital; 17:35 Follow up: Response: Nausea is resolved srm 16:28 Drug: morphine 4 mg [morphine 4 mg/mL intravenous cartridge (1 mL)] Route: IVP; Site: srm right antecubital; 17:35 Follow up: BP 125 / 63; Pulse 86 bpm; Resp 18 bpm; Pulse Ox 100% ; Pain 0/10 Adult srm 18:43 CANCELLED (Other Intervention Used): omeprazole Delayed Release Capsule 20 mg PO once; cc10 swallow whole (do not crush or chew) OR open capsule, sprinkle contents over tablespoonful applesauce; swallow all immediately/do not chew pellets 18:58 Drug: Pantoprazole 40 mg [pantoprazole 40 mg tablet,delayed release (1 tabs)] Route: PO;ms18 18:59 Drug: Sucralfate 1 grams [sucralfate 1 gram tablet (1 tabs)] Route: PO; ms18 Order Results: Lab Order: Amylase; SPEC'M 11/16/16 16:19 Test: AMYLASE; Value: 30; Range: 25-115; Units: U/L; Status: F Lab Order: Basic Metabolic Profile; SPEC'M 11/16/16 16:19 Test: GLUCOSE, FASTING; Value: 100; Range: 70-105; Units: MG/DL; Status: F Test: BLOOD UREA NITROGEN; Value: 24; Range: 7-18; Abnormal: Above high normal; Units: MG/DL; Status: F Test: CREATININE FOR GFR; Value: 0.54; Range: 0.55-1.02; Abnormal: Below low normal; Units: MG/DL; Status: F Test: GLOMERULAR FILTRATION RATE; Value: > 60.0; Range: >58; Status: F Test: SODIUM LEVEL; Value: 142; Range: 136-145; Units: MEQ/L; Status: F Test: POTASSIUM SERUM; Value: 4.1; Range: 3.5-5.1; Units: MEQ/L; Status: F Test: CHLORIDE LEVEL; Value: 108; Range: 98-107; Abnormal: Above high normal; Units: MEQ/L; Status: F Test: CARBON DIOXIDE LEVEL; Value: 26; Range: 21-32; Units: MEQ/L; Status: F Test: ANION GAP; Value: 8; Range: 8-16; Units: MEQ/L; Status: F Test: CALCIUM LEVEL; Value: 8.1; Range: 8.5-10.1; Abnormal: Below low normal; Units: MG/DL; Status: F Test Note: ; Units are mL/min/1.73 m2 Chronic Kidney Disease Staging per NKF: Stage I & II GFR >=60 Normal to Mildly Decreased Stage III GFR 30-59 Moderately Decreased Stage IV GFR 15-29 Severely Decreased Stage V GFR <15 Very Little GFR Left ESRD GFR <15 on PREPARATION DEPARTMENT SUPERVISOR Lab Order: CBC with Diff; SPEC'M 11/16/16 16:19 Test: WHITE BLOOD COUNT; Value: 7.8; Range: 4.0-10.0; Units: K/mm3; Status: F Test: RED BLOOD COUNT; Value: 2.75; Range: 4.00-5.40; Abnormal: Below low normal; Units: M/mm3; Status: F Test: HEMOGLOBIN; Value: 9.2; Range: 12.0-16.0; Abnormal: Below low normal; Units: g/dl; Status: F Test: HEMATOCRIT; Value: 27.2; Range: 36.0-47.0; Abnormal: Below low normal; Units: %; Status: F Test: MEAN CORPUSCULAR VOLUME; Value: 98.9; Range: 80.0-96.0; Abnormal: Above high normal; Units: fl; Status: F Test: MEAN CORPUSCULAR HEMOGLOBIN; Value: 33.5; Range: 27.0-33.0; Abnormal: Above high normal; Units: pg; Status: F Test: MEAN CORPUSCULAR HGB CONC; Value: 33.9; Range: 32.0-36.5; Units: g/dl; Status: F Test: RED CELL DISTRIBUTION WIDTH; Value: 12.6; Range: 11.5-14.5; Units: %; Status: F Test: PLATELET COUNT, AUTOMATED; Value: 211; Range: 150-450; Units: k/mm3; Status: F Test: NEUTROPHILS %; Value: 61.2; Range: 36.0-66.0; Units: %; Status: F Test: LYMPH %; Value: 25.5; Range: 24.0-44.0; Units: %; Status: F Test: MONO %; Value: 5.9; Range: 0.0-5.0; Abnormal: Above high normal; Units: %; Status: F Test: EOS %; Value: 3.3; Range: 0.0-3.0; Abnormal: Above high normal; Units: %; Status: F Test: BASO %; Value: 1.9; Range: 0.0-1.0; Abnormal: Above high normal; Units: %; Status: F Test: LARGE UNSTAINED CELL %; Value: 2.2; Range: 0.0-4.0; Units: %; Status: F Test: NEUTROPHILS #; Value: 4.8; Range: 1.8-7.7; Units: K/mm3; Status: F Test: LYMPH #; Value: 2.2; Range: 1.5-4.5; Units: K/mm3; Status: F Test: MONO #; Value: 0.5; Range: 0.0-0.8; Units: K/mm3; Status: F Test: EOS #; Value: 0.3; Range: 0.0-0.50; Units: K/mm3; Status: F Test: BASO #; Value: 0.2; Range: 0.0-0.2; Units: K/mm3; Status: F Test: LARGE UNSTAINED CELL #; Value: 0.2; Range: 0.0-0.4; Units: K/mm3; Status: F Lab Order: Lipase; [facility] 11/16/16 16:19 Test: LIPASE; Value: 113; Range: 73-393; Units: U/L; Status: F Lab Order: Liver Profile; [facility] 11/16/16 16:19 Test: AST/SGOT; Value: 18; Range: 15-37; Units: U/L; Status: F Test: ALT/SGPT; Value: 22; Range: 12-78; Units: U/L; Status: F Test: ALKALINE PHOSPHATASE; Value: 55; Range: 45-117; Units: U/L; Status: F Test: BILIRUBIN,TOTAL; Value: 0.3; Range: 0.2-1.0; Units: MG/DL; Status: F Test: BILIRUBIN,DIRECT; Value: 0.1; Range: 0.0-0.2; Units: MG/DL; Status: F Test: TOTAL PROTEIN; Value: 5.7; Range: 6.4-8.2; Abnormal: Below low normal; Units: GM/DL; Status: F Test: ALBUMIN; Value: 3.1; Range: 3.2-5.2; Abnormal: Below low normal; Units: GM/DL; Status: F Test: ALBUMIN/GLOBULIN RATIO; Value: 1.19; Range: 1.00-1.93; Status: F Lab Order: Urinalysis; [facility] 11/16/16 15:50 Test: APPEARANCE, URINE; Value: CLEAR; Range: CLEAR; Status: F Test: COLOR, URINE; Value: YELLOW; Range: YELLOW; Status: F Test: PH,URINE; Value: 5.0; Range: 5.0-9.0; Units: UNITS; Status: F Test: SPECIFIC GRAVITY URINE AUTO; Value: 1.020; Range: 1.002-1.035; Status: F Test: PROTEIN, URINE AUTO; Value: NEGATIVE; Range: NEGATIVE; Units: mg/dL; Status: F Test: GLUCOSE, URINE (UA) AUTO; Value: NEGATIVE; Range: NEGATIVE; Units: mg/dL; Status: F Test: KETONE, URINE AUTO; Value: NEGATIVE; Range: NEGATIVE; Units: mg/dL; Status: F Test: UROBILINOGEN, URINE AUTO; Value: 0.2; Range: 0.0-2.0; Units: mg/dL; Status: F Test: BILIRUBIN, URINE AUTO; Value: NEGATIVE; Range: NEGATIVE; Status: F Test: NITRITE, URINE AUTO; Value: NEGATIVE; Range: NEGATIVE; Status: F Test: LEUKOCYTE ESTERASE, URINE AUTO; Value: NEGATIVE; Range: NEGATIVE; Status: F Test: BLOOD, URINE BLOOD; Value: NEGATIVE; Range: NEGATIVE; Status: F Test: WBC, URINE AUTO; Value: 1; Range: 0-3; Units: /HPF; Status: F Test: RBC, URINE AUTO; Value: 3; Range: 0-3; Units: /HPF; Status: F Test: BACTERIA, URINE AUTO; Value: NEGATIVE; Range: NEGATIVE; Status: F Test: SQUAMOUS EPITHELIAL CELL UR AU; Value: 0; Range: 0-6; Units: /HPF; Status: F Test: HYALINE CAST, URINE AUTO; Value: 0; Range: 0-1; Units: /LPF; Status: F Lab Order: Urine Culture; SPEC'M 11/16/16 15:50 Test: URINE CULTURE; Value: <EXTERNAL COMMENT eCWMed> FULL REPORT IN LAB NOTES (eCW and Medent).; Status: F Test: URINE CULTURE; Value: URINE CULTURE RESULT NO GROWTH; Status: F Radiology Order: CT ABD & PELVIS: IV Contrast Only Test: CT ABD & PELVIS: IV Contrast Only REASON FOR EXAMINATION: Diverticulitis; CT ABDOMEN AND PELVIS WITH IV CONTRAST:; ; TECHNIQUE: Axial contrast enhanced images from the lung bases to the pubic; symphysis using 100 mL Isovue 370 intravenous contrast material with multiplanar; reformations with sagittal and coronal reconstruction images.; ; COMPARISON: 03/31/2016; ; Visualized lung bases demonstrate no infiltrate.; ; Liver, spleen, adrenals, pancreas and kidneys appear unremarkable. There is no; hydronephrosis. Gallbladder is unremarkable. There is no abdominal aortic; aneurysm. I see no adenopathy. I see no free air or free fluid. No bowel wall; thickening is seen. There is no evidence of diverticulitis. Pelvic structure; appear unchanged. 2.2 cm cystic structure of the right ovary is unchanged since; prior exam. No new pelvic mass is seen. Urinary bladder is mildly distended and; grossly unremarkable. I see no anterior abdominal hernia. There does appear to be; a small hiatal hernia. Small calcification is seen in the liver.; ; IMPRESSION:; ; No acute abnormality is identified as discussed in detail above. No evidence of; diverticulitis or other acute bowel abnormality. No free air or free fluid.; ; ; Signed by; Jose Antonio Hernandez MD 11/16/2016 07:59 P; Outcome: 18:39 Discharge ordered by Provider. cc10 18:59 Discharge Assessment: Patient awake, alert and oriented x 3. No cognitive and/or ms18 functional deficits noted. Patient verbalized understanding of disposition instructions. patient administered narcotics - no. The following High Risk Discharge criteria are identified: None. Discharged to home ambulatory. Condition: good Condition: stable Condition: improved. Discharge instructions given to patient, Instructed on discharge instructions, follow up and referral plans. medication usage, Demonstrated understanding of instructions, medications, Pt was receptive of discharge instructions/ teaching. Prescriptions given X 2. CT Study completed. 19:00 Patient left the ED. ms18 Signatures: Dispatcher [employer] EDMS Janneth Colon, RN RN tariq Caroline Blas, COTTON GIN YARD SUPERVISOR COTTON GIN YARD SUPERVISOR jam1 Neris Sanderson RN RN kr3 Bre Newman Daniell, COTTON GIN YARD SUPERVISOR COTTON GIN YARD SUPERVISOR dd6 Marycruz Lei, PA-C PA-C ef1 Varsha Camacho RN RN ead Coniski, Colin, PA-C PA-C cc10 Bridgette Esparza RN RN ms18 Greg Mcdermott, COTTON GIN YARD SUPERVISOR COTTON GIN YARD SUPERVISOR mdr Devora Guerrero, Reg Reg hs2 Chart Complete MTDD
--- NOTE | 2016-11-18 20:02 | EDDOCDS ---
Physician Documentation [facility] Name: Elisabet Castañeda Age: 41 yrs Sex: Female : 1975 Arrival Date: 11/16/2016 Time: 14:17 Bed I2 / M2 Private MD: Timothy Hull Disposition: 11/16/16 18:39 Discharged to Home/Self Care. Impression: Generalized abdominal pain - Likely bleeding ulcers, Anemia, unspecified - Chronic. - Condition is Stable. - Discharge Instructions: Peptic Ulcer Disease. - Prescriptions for omeprazole 20 mg Oral capsule,delayed release(DR/EC) - take 1 capsule by ORAL route 2 times per day; 60 capsule. Carafate 1 gram Oral Tablet - take 1 tablet by ORAL route 4 times per day take on an empty stomach, beginning on waking and last dose at bedtime; 100 tablet. - Medication Reconciliation, Local Pharmacy Hours form. - Follow up: Emergency Department; When: As needed. Follow up: Private Physician; When: Call to arrange an appointment; Reason: Wound/Symptom Recheck, Recheck today's complaints, Worsening of conditions, Continuance of care. - Problem is an ongoing problem. - Symptoms have improved. - Notes: Call Dr. Anne in the morning for follow up from today's visit. Stop taking NSAID medications. You need an upper endoscopy. Historical: - Allergies: no known allergies; - Home Meds: 1. Vitamin D Oral daily 2. Vitamin B-12 Oral Unknown 3. multivitamin Oral cap 2 tab daily 4. Claritin 10 mg Oral tab 1 tab once daily 5. ketorolac 10 mg Oral tab three times a day as needed (Last dose: 11/14/2016) 6. dicyclomine 20 mg Oral tab 4 times per day (Last dose: 11/16/2016) 7. Zofran (as hydrochloride) 4 mg ODT Oral tab (Last dose: 11/16/2016 08:00) - PMHx: Diet controlled Diabetes; Seasonal Allergies; - PSHx: Uterine Ablation; Gastric Bypass; mass removal left ovary; Cesearean Section; Appendectomy; - Social history: Smoking status: Patient states former smoker of tobacco. No barriers to communication noted, The patient speaks fluent Amharic, Speaks appropriately for age. - Family history: Not pertinent. - : The pt / caregiver states he / she is not on anticoagulants. Home medication list is obtained from the patient, [employer] import data, pill bottles. - Exposure Risk Screening:: None identified. 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 7 in. (170.18 cm) (R); 17:35 BP 125 / 63; Pulse 86; Resp 18; Pulse Ox 100% ; Pain 0/10; srm 18:35 BP 115 / 62; Pulse 83; Resp 20; Temp 98.3; Pulse Ox 100% ; Pain 0/10; jam1 14:18 Body Mass Index 30.23 (87.54 kg, 170.18 cm) dd6 MDM: 15:44 NS 0.9% 1000 ml IV at bolus once ordered. ef1 15:44 IV Saline Lock ordered. ef1 15:44 Undress patient appropriately for examination ordered. ef1 15:44 Ondansetron 4 mg IVP once ordered. ef1 15:44 morphine 4 mg IVP once ordered. ef1 15:46 Amylase Ordered. EDMS 15:46 Basic Metabolic Profile Ordered. EDMS 15:46 CBC with Diff Ordered. EDMS 15:46 Lipase Ordered. EDMS 15:46 Liver Profile Ordered. EDMS 15:46 Urinalysis Ordered. EDMS 15:46 Urine Culture Ordered. EDMS 15:46 NOTHING BY MOUTH+DIET ordered. EDMS 15:46 CT ABD & PELVIS: IV Contrast Only Ordered. EDMS 17:00 Financial registration complete. zo 17:07 CBC with Diff Reviewed. ef1 17:07 Urinalysis Reviewed. ef1 17:08 Basic Metabolic Profile Reviewed. ef1 17:08 Liver Profile Reviewed. ef1 17:08 Amylase Reviewed. ef1 17:08 Lipase Reviewed. ef1 17:13 [facility] was scanned into [employer] and attached to record. zo 18:42 Sucralfate 1 grams PO once ordered. cc10 18:43 Pantoprazole 40 mg PO once ordered. cc10 11/17 03:13 T-Sheet-- Draft Copy was scanned into [employer] and attached to record. hs2 Administered Medications: 11/16 16:26 Drug: NS 0.9% 1000 ml [sodium chloride 0.9 % intravenous solution] Route: IV; Rate: srm bolus; Site: right antecubital; 16:26 Drug: Ondansetron 4 mg [ondansetron HCl 2 mg/mL intravenous solution (2 mL)] Route: srm IVP; Site: right antecubital; 17:35 Follow up: Response: Nausea is resolved srm 16:28 Drug: morphine 4 mg [morphine 4 mg/mL intravenous cartridge (1 mL)] Route: IVP; Site: srm right antecubital; 17:35 Follow up: BP 125 / 63; Pulse 86 bpm; Resp 18 bpm; Pulse Ox 100% ; Pain 0/10 Adult srm 18:43 CANCELLED (Other Intervention Used): omeprazole Delayed Release Capsule 20 mg PO once; cc10 swallow whole (do not crush or chew) OR open capsule, sprinkle contents over tablespoonful applesauce; swallow all immediately/do not chew pellets 18:58 Drug: Pantoprazole 40 mg [pantoprazole 40 mg tablet,delayed release (1 tabs)] Route: PO;ms18 18:59 Drug: Sucralfate 1 grams [sucralfate 1 gram tablet (1 tabs)] Route: PO; ms18 Signatures: Dispatcher [employer] Janneth Powell RN RN [facility] Bre Newman Erica, PA-C PA-C ef1 Varsha Camacho RN RN ead Coniski, Colin, PA-C PA-C cc10 Bridgette Esparza RN RN ms18 Devora Guerrero, Reg Reg hs2 The chart was reviewed and I authenticate all verbal orders and agree with the evaluation and treatment provided.Corrections: (The following items were deleted from the chart) 18:43 18:42 omeprazole Delayed Release Capsule 20 mg PO once; swallow whole (do not crush or cc10 chew) OR open capsule, sprinkle contents over tablespoonful applesauce; swallow all immediately/do not chew pellets ordered. cc10 Attachments: 17:13 [facility] Payment Agreement zo 11/17 03:13 T-Sheet-- Draft Copy hs2 Chart Complete MTDD
== END 2016-11-16 19:00 | disposition home or self-care (01) ==
LOC: M ED 14:17
DX: D64.9 Anemia, unspecified (principal); R10.32 Left lower quadrant pain; E11.9 Type 2 diabetes mellitus without complications; J30.9 Allergic rhinitis, unspecified; Z98.84 Bariatric surgery status; Z79.899 Other long term (current) drug therapy; Z87.891 Personal history of nicotine dependence
CPT/HCPCS: 36415; 74177; 80048; 80076; 81001; 82150; 83690; 85025; 87086; 96374; 96375; 99284; J2405; Q9967

== ENCOUNTER 2016-11-18 01:29 | Emergency (ER) | payer BC, MEDICAID ==
[~2016-11-18] VITALS: Ht 162.6 cm; Wt 87.5 kg
[2016-11-18] MEDS ORDERED: DOXYCYCLINE HYCLATE 100 MG TAB As Ordered ONE (05:33)
[2016-11-18] MEDS ORDERED: NORCO 5/325MG TABLET (BULK) As Ordered ONE (05:33)
[2016-11-18] MEDS ORDERED: PSEUDOEPHEDRINE 60 MG TAB PO SCH (05:45)
--- NOTE | 2016-11-18 05:50 | REP ---
Clinical: Facial pain. Technique: Christianson, Navas, lateral, and SMV views. Findings: Sinuses are well aerated and clear. No mucosal thickening or fluid levels are identified. No foreign body or abnormal calcifications appreciated. Osseous structures appear intact. Impression: Normal sinus radiograph series Signed by Jayson Thompson MD 11/18/2016 05:42 A
--- NOTE | 2016-11-18 06:16 | EDDOCDS ---
Nurse's Notes [facility] Name: Elisabet Castañeda Age: 41 yrs Sex: Female : 1975 Arrival Date: 11/18/2016 Time: 01:29 Bed 12 Private MD: Timothy Hull Diagnosis: Acute sinusitis;Headache-due to same Presentation: 11/18 01:50 Presenting complaint: Patient states: "thinks it's a sinus thing," reports nasal af2 congestion, headache, pressure in face. This patient has no additional risk factors. Adult Sepsis Screening: The patient does not have new or worsening altered mentation. Patient's respiratory rate is less than 22. Systolic blood pressure is greater than 100. Patient has a qSOFA score of 0- Negative Sepsis Screen. Suicide/Homicide risk assessment- the patient denies having any suicidal and/or homicidal ideations and does not present with any other emotional, behavioral or mental health complaints. Status: Patient is not a healthcare advisory services manager or dependent. Transition of care: patient was not received from another setting of care. 01:50 Acuity: SAMUEL Level 5 af2 01:50 Method Of Arrival: Walkin/Carried/Asstd af2 Triage Assessment: 01:53 Headache History: This patient does not have a history of previous headaches. General: af2 Appears in no apparent distress, comfortable, Behavior is appropriate for age, cooperative. Pain: Location: head Pain currently is 10 out of 10 on a pain scale. HIV screening NA for this visit Offered previously. Neurological: Level of Consciousness is awake, alert, Reports headache. CAT SITTER: 01:48 LMP N/A - Uterine ablation af2 Historical: - Allergies: No known drug Allergies; - Home Meds: 1. Claritin 10 mg Oral tab 1 tab once daily 2. Zofran (as hydrochloride) 4 mg odt Oral tab 3. Vitamin B-12 Oral Unknown 4. multivitamin Oral cap 2 tab daily 5. Vitamin D Oral daily 6. ketorolac 10 mg Oral tab three times a day as needed 7. dicyclomine 20 mg Oral tab 4 times per day - PMHx: Diet controlled Diabetes; Seasonal Allergies; - PSHx: Uterine Ablation; Gastric Bypass; mass removal left ovary; Cesearean Section; Appendectomy; - The history from nurses notes was reviewed: and I agree with what is documented. - Social history: Smoking status: Patient states was never smoker of tobacco. No barriers to communication noted, Speaks appropriately for age. - : The pt / caregiver states he / she is not on anticoagulants. Home medication list is obtained from the patient. - Hospitalizations: : No recent hospitalization is reported. - Exposure Risk Screening:: None identified. - Immunization history:: All immunizations up-to-date. - Family history: Not pertinent. - Social history:: the patient is a non-smoker, the patient drinks alcohol, socially. Screenin:44 Screening information is obtained from the patient. Fall risk: No risks identified. cf2 Assistance ADL's: requires no assistance with activities of daily living. Abuse/DV Screen: The patient / caregiver reports he/she is: not in a situation that causes fear, pain or injury. Nutritional screening: No deficits noted. Advance Directives: Further advance directive information is declined. home support is adequate. Assessment: 04:22 General: Patient received from triage area. cf2 04:44 Adult Sepsis Screening: The patient does not have new or worsening altered mentation. cf2 Patient's respiratory rate is less than 22. Systolic blood pressure is greater than 100. Patient has a qSOFA score of 0- Negative Sepsis Screen. Pain: Denies pain. Pain: Also complains of no other associated symptoms. Neurological: No deficits noted. EENT: No deficits noted. Reports nasal congestion. Cardiovascular: No deficits noted. Respiratory: No deficits noted. GI: No deficits noted. : No deficits noted. Derm: No deficits noted. Musculoskeletal: No deficits noted. Injury Description: No known injury. 04:44 Pain: Location: face Quality of pain is described as. Pain: Pain began 2-3 days ago Is. cf2 Pain: Pain currently is 3 out of 10 on a pain scale. At worst was 5 out of 10 on a pain scale. Pain does not radiate. Alleviated by. Vital Signs: 01:48 BP 104 / 50 LA Sitting (auto/); Pulse 81; Resp 18 S; Temp 98.7(TE); Pulse Ox 100% on af2 R/A; Weight 87.54 kg (R); Height 5 ft. 4 in. (162.56 cm) (R); Pain 10/10; 06:14 BP 110 / 61; Pulse 76; Resp 16; Temp 98.0; Pulse Ox 98% on R/A; Pain 2/10; cf2 01:48 Body Mass Index 33.13 (87.54 kg, 162.56 cm) af2 Vitals: 01:48 Log In Time: November 18, 2016 at 01:29. af2 ED Course: 01:31 Patient visited by Swapnil Mathews Reg. pm4 01:31 Timothy Hull DO is Private Physician. pm4 01:31 Patient moved to Waiting pm4 01:51 Triage Initiated af2 01:53 Patient visited by Phoebe Mi RN. af2 01:54 Patient moved to MTA Wait af2 02:03 Patient moved to Pre RCE af2 04:15 Patient moved to 12 af2 04:21 Michael Bullock MD is Attending Physician. pc 04:22 Zofia Gomez RN is Primary Nurse. cf2 04:24 Patient visited by Zofia Gomez RN. cf2 04:26 Patient visited by Michael Bullock MD. pc 04:35 Patient moved to Radiology daron 04:44 Patient visited by Zofia Gomez RN. cf2 04:44 Patient moved to 12 daron 04:44 The patient / caregiver is instructed regarding the plan of care and ED course. Patient cf2 has correct armband on for positive identification. Placed in gown. Bed in low position. Call light in reach. Side rails up X 1. Side rails up X2. Property :Personal belongings accompany Pt. Door closed. Noise minimized. Visitors limited. Lights dimmed. Moved to private room. Verbal reassurance given. Warm blanket given. Pillow given. Head of bed elevated. Diet: Patient is NPO. 04:44 No IV's were initiated during this patient's visit. No procedures done that require cf2 assistance. 04:57 [facility] [place] Payment Agreement was scanned into [employer] and attached to record. hs2 05:20 [facility] is Referral Physician. pc 06:13 Patient visited by Zofia Gomez RN. cf2 06:13 Patient visited by Zofia Gomez RN. cf2 06:15 Sinuses Returned. EDMS Administered Medications: 05:39 Drug: Doxycycline 100 mg [doxycycline hyclate 100 mg tablet (1 tabs)] Route: PO; tm5 05:39 Drug: HYDROcodone-acetaminophen 4 pack- 1 packets [hydrocodone 5 mg-acetaminophen 325 tm5 mg tablet (1 tabs)] {Co-Signature: cf2 (Zofia Gomez RN).} Route: PO; 06:13 Drug: Pseudoephedrine 60 mg Route: PO; cf2 Order Results: Radiology Order: Sinuses Test: Sinuses REASON FOR EXAMINATION: facial pain; Clinical: Facial pain.; ; Technique: Christianson, Navas, lateral, and SMV views.; ; Findings:; Sinuses are well aerated and clear. No mucosal thickening or fluid levels are; identified. No foreign body or abnormal calcifications appreciated. Osseous; structures appear intact.; ; Impression:; Normal sinus radiograph series; ; ; Signed by; Jayson Thompson MD 11/18/2016 05:42 A; Outcome: 05:20 Discharge ordered by Provider. pc 06:14 Discharge Assessment: Patient awake, alert and oriented x 3. No cognitive and/or cf2 functional deficits noted. Patient verbalized understanding of disposition instructions. Patient awake and alert. Oriented to person, place and time. patient administered narcotics - yes. Pt provided with safe discharge. The following High Risk Discharge criteria are identified: None. Discharged to home. Condition: good Condition: stable Condition: improved. Discharge instructions given to patient, Instructed on discharge instructions, follow up and referral plans. medication usage, Prescriptions given X 2. No special radiology studies were completed. 06:15 Patient left the ED. cf2 Signatures: Dispatcher [employer] EDMS Michael Bullock MD MD pc Bartlett, Floyd fab Fulton, Amber, RN RN af2 Devora Guerrero, Reg Reg hs2 Zofia Gomez RN RN cf2 Madisyn Villa RN RN tm5 Swapnil Mathews, Reg Reg pm4 Zofia Gomez RN cf2 MTDD
--- NOTE | 2016-11-18 06:16 | EDDOCDS ---
Physician Documentation [facility] Name: Elisabet Castañeda Age: 41 yrs Sex: Female : 1975 Arrival Date: 11/18/2016 Time: 01:29 Bed 12 Private MD: Timothy Hull Disposition: 11/18 05:19 Critical Care: Critical care not applicable. pc Disposition: 11/18/16 05:20 Discharged to Home/Self Care. Impression: Acute sinusitis, Headache - due to same. - Condition is Stable. - Discharge Instructions: Sinus Headache, Sinusitis, Adult. - Prescriptions for Doxycycline Monohydrate 100 mg Oral Tablet - take 1 tablet by ORAL route every 12 hours for 10 days; 20 tablet. Pseudoephedrine HCl 30 mg Oral Tablet - take 2 tablet by ORAL route every 6 hours As needed; 30 tablet. - Work Release Form - 1 day, Medication Reconciliation, Local Pharmacy Hours form. - [facility] up: [facility]; When: Call to arrange an appointment; Reason: Continuance of care. - Problem is new. - Symptoms have improved. HPI: 04:26 This 41 yrs old Female presents to ER via Walkin/Carried/Asstd with pc complaints of Headache. 04:26 The history is obtained from the patient. She has had facial and forehead pain with pc sinus congestion for 24 hours. She denies any fevers or chills. Denies any cough. She has used Tylenol without effect. At their worst, the symptoms were a 10 out of 10. In the emergency department, the symptoms are a 10 out of 10. The patient has experienced similar episodes in the past, several times. The patient has been recently seen at the [facility], this week, for bloody stools. Historical: - Allergies: No known drug Allergies; - Home Meds: 1. Claritin 10 mg Oral tab 1 tab once daily 2. Zofran (as hydrochloride) 4 mg odt Oral tab 3. Vitamin B-12 Oral Unknown 4. multivitamin Oral cap 2 tab daily 5. Vitamin D Oral daily 6. ketorolac 10 mg Oral tab three times a day as needed 7. dicyclomine 20 mg Oral tab 4 times per day - PMHx: Diet controlled Diabetes; Seasonal Allergies; - PSHx: Uterine Ablation; Gastric Bypass; mass removal left ovary; Cesearean Section; Appendectomy; - The history from nurses notes was reviewed: and I agree with what is documented. - Social history: Smoking status: Patient states was never smoker of tobacco. No barriers to communication noted, Speaks appropriately for age. - : The pt / caregiver states he / she is not on anticoagulants. Home medication list is obtained from the patient. - Hospitalizations: : No recent hospitalization is reported. - Exposure Risk Screening:: None identified. - Immunization history:: All immunizations up-to-date. - Family history: Not pertinent. - Social history:: the patient is a non-smoker, the patient drinks alcohol, socially. HOMICIDE SQUAD CAPTAIN: 01:48 LMP N/A - Uterine ablation af2 ROS: 04:26 All systems are negative except as listed. pc Exam: 04:26 General Appearance: alert, the patient is in mild distress. pc 04:26 EENT: normal eye inspection, pharynx normal, mucous membranes moist no apparent trauma, pain on palpation of forehead and maxillary sinuses. 04:26 Neck: The exam reveals no acute abnormalities. ROM is normal and painless. No nuchal rigidity is noted.. 04:26 Respiratory: no respiratory distress, normal breath sounds. 04:26 Neuro: oriented x 3, cranial nerves normal as tested, no motor deficits, no sensory deficits, normal gait, Cerebellar function: normal finger to nose testing, Romberg testing is negative. Vital Signs: 01:48 BP 104 / 50 LA Sitting (auto/); Pulse 81; Resp 18 S; Temp 98.7(TE); Pulse Ox 100% on af2 R/A; Weight 87.54 kg / 192.99 lbs (R); Height 5 ft. 4 in. (162.56 cm) (R); Pain 10/10; 06:14 BP 110 / 61; Pulse 76; Resp 16; Temp 98.0; Pulse Ox 98% on R/A; Pain 2/10; cf2 01:48 Body Mass Index 33.13 (87.54 kg, 162.56 cm) af2 MDM: 04:26 Differential Diagnosis: sinusitis with headache. Plan: imaging, meds. pc 04:27 Sinuses Ordered. EDMS 04:56 Financial registration complete. hs2 04:57 [facility] Payment Agreement was scanned into [employer] and attached to record. hs2 05:18 Pseudoephedrine 60 mg PO once ordered. pc 05:18 Doxycycline 100 mg PO once ordered. pc 05:18 Data reviewed: old medical records, vital signs, nurses notes, all radiology studies pc and available results. Test interpretation: X-RAY - interpreted by me, Sinus Normal. The patient has been re-examined and re-evaluated. The patient's symptoms have mildly improved after treatment. 05:19 HYDROcodone-acetaminophen 4 pack- 5 mg-325 mg 1 packets PO Per package directions; pc Dispense with patient. 1 po q4h prn for pain ordered. 05:19 Disposition: The historical points, examination findings, and any diagnostic results pc supporting the provided diagnosis, were discussed with the patient or legal guardian. The need for outpatient follow up with the provider listed on their discharge instructions was discussed. They were encouraged to return to [facility], or the nearest ED, if symptoms worsen/persist, or for any other questions/concerns. Administered Medications: 05:39 Drug: Doxycycline 100 mg [doxycycline hyclate 100 mg tablet (1 tabs)] Route: PO; tm5 05:39 Drug: HYDROcodone-acetaminophen 4 pack- 1 packets [hydrocodone 5 mg-acetaminophen 325 tm5 mg tablet (1 tabs)] {Co-Signature: cf2 (Zofia Gomez RN).} Route: PO; 06:13 Drug: Pseudoephedrine 60 mg Route: PO; cf2 Signatures: Dispatcher [employer] Michael Kim MD MD pc Fulton, Amber, RN RN af2 Devora Guerrero, Reg Reg hs2 Zofia Gomez RN RN cf2 Madisyn Villa RN tm5 Zofia Gomez RN cf2 The chart was reviewed and I authenticate all verbal orders and agree with the evaluation and treatment provided.Attachments: 04:57 [facility] Payment Agreement hs2 MTDD
--- NOTE | 2016-11-20 07:16 | EDDOCDS ---
Physician Documentation [facility] Name: Elisabet Castañeda Age: 41 yrs Sex: Female : 1975 Arrival Date: 11/18/2016 Time: 01:29 Bed 12 Private MD: Timothy Hull Disposition: 11/18 05:19 Critical Care: Critical care not applicable. pc Disposition: 11/18/16 05:20 Discharged to Home/Self Care. Impression: Acute sinusitis, Headache - due to same. - Condition is Stable. - Discharge Instructions: Sinus Headache, Sinusitis, Adult. - Prescriptions for Doxycycline Monohydrate 100 mg Oral Tablet - take 1 tablet by ORAL route every 12 hours for 10 days; 20 tablet. Pseudoephedrine HCl 30 mg Oral Tablet - take 2 tablet by ORAL route every 6 hours As needed; 30 tablet. - Work Release Form - 1 day, Medication Reconciliation, Local Pharmacy Hours form. - [facility]; When: Call to arrange an appointment; Reason: Continuance of care. - Problem is new. - Symptoms have improved. HPI: 04:26 This 41 yrs old Female presents to ER via Walkin/Carried/Asstd with pc complaints of Headache. 04:26 The history is obtained from the patient. She has had facial and forehead pain with pc sinus congestion for 24 hours. She denies any fevers or chills. Denies any cough. She has used Tylenol without effect. At their worst, the symptoms were a 10 out of 10. In the emergency department, the symptoms are a 10 out of 10. The patient has experienced similar episodes in the past, several times. The patient has been recently seen at the [facility], this week, for bloody stools. Historical: - Allergies: No known drug Allergies; - Home Meds: 1. Claritin 10 mg Oral tab 1 tab once daily 2. Zofran (as hydrochloride) 4 mg odt Oral tab 3. Vitamin B-12 Oral Unknown 4. multivitamin Oral cap 2 tab daily 5. Vitamin D Oral daily 6. ketorolac 10 mg Oral tab three times a day as needed 7. dicyclomine 20 mg Oral tab 4 times per day - PMHx: Diet controlled Diabetes; Seasonal Allergies; - PSHx: Uterine Ablation; Gastric Bypass; mass removal left ovary; Cesearean Section; Appendectomy; - The history from nurses notes was reviewed: and I agree with what is documented. - Social history: Smoking status: Patient states was never smoker of tobacco. No barriers to communication noted, Speaks appropriately for age. - : The pt / caregiver states he / she is not on anticoagulants. Home medication list is obtained from the patient. - Hospitalizations: : No recent hospitalization is reported. - Exposure Risk Screening:: None identified. - Immunization history:: All immunizations up-to-date. - Family history: Not pertinent. - Social history:: the patient is a non-smoker, the patient drinks alcohol, socially. 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 pc Exam: 04:26 General Appearance: alert, the patient is in mild distress. pc 04:26 EENT: normal eye inspection, pharynx normal, mucous membranes moist no apparent trauma, pain on palpation of forehead and maxillary sinuses. 04:26 Neck: The exam reveals no acute abnormalities. ROM is normal and painless. No nuchal rigidity is noted.. 04:26 Respiratory: no respiratory distress, normal breath sounds. 04:26 Neuro: oriented x 3, cranial nerves normal as tested, no motor deficits, no sensory deficits, normal gait, Cerebellar function: normal finger to nose testing, Romberg testing is negative. Vital Signs: 01:48 BP 104 / 50 LA Sitting (auto/); Pulse 81; Resp 18 S; Temp 98.7(TE); Pulse Ox 100% on af2 R/A; Weight 87.54 kg / 192.99 lbs (R); Height 5 ft. 4 in. (162.56 cm) (R); Pain 10/10; 06:14 BP 110 / 61; Pulse 76; Resp 16; Temp 98.0; Pulse Ox 98% on R/A; Pain 2/10; cf2 01:48 Body Mass Index 33.13 (87.54 kg, 162.56 cm) af2 MDM: 04:26 Differential Diagnosis: sinusitis with headache. Plan: imaging, meds. pc 04:27 Sinuses Ordered. EDMS 04:56 Financial registration complete. hs2 04:57 [facility] Payment Agreement was scanned into [employer] and attached to record. hs2 05:18 Pseudoephedrine 60 mg PO once ordered. pc 05:18 Doxycycline 100 mg PO once ordered. pc 05:18 Data reviewed: old medical records, vital signs, nurses notes, all radiology studies pc and available results. Test interpretation: X-RAY - interpreted by me, Sinus Normal. The patient has been re-examined and re-evaluated. The patient's symptoms have mildly improved after treatment. 05:19 HYDROcodone-acetaminophen 4 pack- 5 mg-325 mg 1 packets PO Per package directions; pc Dispense with patient. 1 po q4h prn for pain ordered. 05:19 Disposition: The historical points, examination findings, and any diagnostic results pc supporting the provided diagnosis, were discussed with the patient or legal guardian. The need for outpatient follow up with the provider listed on their discharge instructions was discussed. They were encouraged to return to [facility], or the nearest ED, if symptoms worsen/persist, or for any other questions/concerns. Administered Medications: 05:39 Drug: Doxycycline 100 mg [doxycycline hyclate 100 mg tablet (1 tabs)] Route: PO; tm5 05:39 Drug: HYDROcodone-acetaminophen 4 pack- 1 packets [hydrocodone 5 mg-acetaminophen 325 tm5 mg tablet (1 tabs)] {Co-Signature: cf2 (Zofia Gomez RN).} Route: PO; 06:13 Drug: Pseudoephedrine 60 mg Route: PO; cf2 Signatures: Dispatcher [employer] Michael Kim MD MD pc Fulton, Amber, RN RN af2 Devora Guerrero, Reg Reg hs2 Zofia Gomez RN RN cf2 Madisyn Villa RN tm5 Zofia Gomez RN cf2 The chart was reviewed and I authenticate all verbal orders and agree with the evaluation and treatment provided.Attachments: 04:57 [facility] Payment Agreement hs2 Chart Complete MTDD
--- NOTE | 2016-11-20 07:16 | EDDOCDS ---
Physician Documentation [facility] Name: Elisabet Castañeda Age: 41 yrs Sex: Female : 1975 Arrival Date: 11/18/2016 Time: 01:29 Bed 12 Private MD: Timothy Hull Disposition: 11/18 05:19 Critical Care: Critical care not applicable. pc Disposition: 11/18/16 05:20 Discharged to Home/Self Care. Impression: Acute sinusitis, Headache - due to same. - Condition is Stable. - Discharge Instructions: Sinus Headache, Sinusitis, Adult. - Prescriptions for Doxycycline Monohydrate 100 mg Oral Tablet - take 1 tablet by ORAL route every 12 hours for 10 days; 20 tablet. Pseudoephedrine HCl 30 mg Oral Tablet - take 2 tablet by ORAL route every 6 hours As needed; 30 tablet. - Work Release Form - 1 day, Medication Reconciliation, Local Pharmacy Hours form. - [facility] up[facility]; When: Call to arrange an appointment; Reason: Continuance of care. - Problem is new. - Symptoms have improved. HPI: 04:26 This 41 yrs old Female presents to ER via Walkin/Carried/Asstd with pc complaints of Headache. 04:26 The history is obtained from the patient. She has had facial and forehead pain with pc sinus congestion for 24 hours. She denies any fevers or chills. Denies any cough. She has used Tylenol without effect. At their worst, the symptoms were a 10 out of 10. In the emergency department, the symptoms are a 10 out of 10. The patient has experienced similar episodes in the past, several times. The patient has been recently seen at the [facility], this week, for bloody stools. Historical: - Allergies: No known drug Allergies; - Home Meds: 1. Claritin 10 mg Oral tab 1 tab once daily 2. Zofran (as hydrochloride) 4 mg odt Oral tab 3. Vitamin B-12 Oral Unknown 4. multivitamin Oral cap 2 tab daily 5. Vitamin D Oral daily 6. ketorolac 10 mg Oral tab three times a day as needed 7. dicyclomine 20 mg Oral tab 4 times per day - PMHx: Diet controlled Diabetes; Seasonal Allergies; - PSHx: Uterine Ablation; Gastric Bypass; mass removal left ovary; Cesearean Section; Appendectomy; - The history from nurses notes was reviewed: and I agree with what is documented. - Social history: Smoking status: Patient states was never smoker of tobacco. No barriers to communication noted, Speaks appropriately for age. - : The pt / caregiver states he / she is not on anticoagulants. Home medication list is obtained from the patient. - Hospitalizations: : No recent hospitalization is reported. - Exposure Risk Screening:: None identified. - Immunization history:: All immunizations up-to-date. - Family history: Not pertinent. - Social history:: the patient is a non-smoker, the patient drinks alcohol, socially. 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 pc Exam: 04:26 General Appearance: alert, the patient is in mild distress. pc 04:26 EENT: normal eye inspection, pharynx normal, mucous membranes moist no apparent trauma, pain on palpation of forehead and maxillary sinuses. 04:26 Neck: The exam reveals no acute abnormalities. ROM is normal and painless. No nuchal rigidity is noted.. 04:26 Respiratory: no respiratory distress, normal breath sounds. 04:26 Neuro: oriented x 3, cranial nerves normal as tested, no motor deficits, no sensory deficits, normal gait, Cerebellar function: normal finger to nose testing, Romberg testing is negative. Vital Signs: 01:48 BP 104 / 50 LA Sitting (auto/); Pulse 81; Resp 18 S; Temp 98.7(TE); Pulse Ox 100% on af2 R/A; Weight 87.54 kg / 192.99 lbs (R); Height 5 ft. 4 in. (162.56 cm) (R); Pain 10/10; 06:14 BP 110 / 61; Pulse 76; Resp 16; Temp 98.0; Pulse Ox 98% on R/A; Pain 2/10; cf2 01:48 Body Mass Index 33.13 (87.54 kg, 162.56 cm) af2 MDM: 04:26 Differential Diagnosis: sinusitis with headache. Plan: imaging, meds. pc 04:27 Sinuses Ordered. EDMS 04:56 Financial registration complete. hs2 04:57 [facility] Payment Agreement was scanned into [employer] and attached to record. hs2 05:18 Pseudoephedrine 60 mg PO once ordered. pc 05:18 Doxycycline 100 mg PO once ordered. pc 05:18 Data reviewed: old medical records, vital signs, nurses notes, all radiology studies pc and available results. Test interpretation: X-RAY - interpreted by me, Sinus Normal. The patient has been re-examined and re-evaluated. The patient's symptoms have mildly improved after treatment. 05:19 HYDROcodone-acetaminophen 4 pack- 5 mg-325 mg 1 packets PO Per package directions; pc Dispense with patient. 1 po q4h prn for pain ordered. 05:19 Disposition: The historical points, examination findings, and any diagnostic results pc supporting the provided diagnosis, were discussed with the patient or legal guardian. The need for outpatient follow up with the provider listed on their discharge instructions was discussed. They were encouraged to return to [facility], or the nearest ED, if symptoms worsen/persist, or for any other questions/concerns. Administered Medications: 05:39 Drug: Doxycycline 100 mg [doxycycline hyclate 100 mg tablet (1 tabs)] Route: PO; tm5 05:39 Drug: HYDROcodone-acetaminophen 4 pack- 1 packets [hydrocodone 5 mg-acetaminophen 325 tm5 mg tablet (1 tabs)] {Co-Signature: cf2 (Zofia Gomez RN).} Route: PO; 06:13 Drug: Pseudoephedrine 60 mg Route: PO; cf2 Signatures: Dispatcher [employer] Michael Kim MD MD pc F[place]on, Amber, RN RN af2 Devora Guerrero, Reg Reg hs2 Zofia Gomez RN RN cf2 Madisyn Villa RN tm5 Zofia Gomez RN cf2 The chart was reviewed and I authenticate all verbal orders and agree with the evaluation and treatment provided.Attachments: 04:57 [facility] Payment Agreement hs2 Chart Complete MTDD
--- NOTE | 2016-11-20 07:17 | EDDOCDS ---
Nurse's Notes [facility] Name: Elisabet Castañeda Age: 41 yrs Sex: Female : 1975 Arrival Date: 11/18/2016 Time: 01:29 Bed 12 Private MD: Timothy Hull Diagnosis: Acute sinusitis;Headache-due to same Presentation: 11/18 01:50 Presenting complaint: Patient states: "thinks it's a sinus thing," reports nasal af2 congestion, headache, pressure in face. This patient has no additional risk factors. Adult Sepsis Screening: The patient does not have new or worsening altered mentation. Patient's respiratory rate is less than 22. Systolic blood pressure is greater than 100. Patient has a qSOFA score of 0- Negative Sepsis Screen. Suicide/Homicide risk assessment- the patient denies having any suicidal and/or homicidal ideations and does not present with any other emotional, behavioral or mental health complaints. 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 Transition of care: patient was not received from another setting of care. 01:50 Acuity: SAMUEL Level 5 af2 01:50 Method Of Arrival: Walkin/Carried/Asstd af2 Triage Assessment: 01:53 Headache History: This patient does not have a history of previous headaches. General: af2 Appears in no apparent distress, comfortable, Behavior is appropriate for age, cooperative. Pain: Location: head Pain currently is 10 out of 10 on a pain scale. HIV screening NA for this visit Offered previously. Neurological: Level of Consciousness is awake, alert, Reports headache. 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 Claritin 10 mg Oral tab 1 tab once daily 2. Zofran (as hydrochloride) 4 mg odt Oral tab 3. Vitamin B-12 Oral Unknown 4. multivitamin Oral cap 2 tab daily 5. Vitamin D Oral daily 6. ketorolac 10 mg Oral tab three times a day as needed 7. dicyclomine 20 mg Oral tab 4 times per day - PMHx: Diet controlled Diabetes; Seasonal Allergies; - PSHx: Uterine Ablation; Gastric Bypass; mass removal left ovary; Cesearean Section; Appendectomy; - The history from nurses notes was reviewed: and I agree with what is documented. - Social history: Smoking status: Patient states was never smoker of tobacco. No barriers to communication noted, Speaks appropriately for age. - : The pt / caregiver states he / she is not on anticoagulants. Home medication list is obtained from the patient. - Hospitalizations: : No recent hospitalization is reported. - Exposure Risk Screening:: None identified. - Immunization history:: All immunizations up-to-date. - Family history: Not pertinent. - Social history:: the patient is a non-smoker, the patient drinks alcohol, socially. Screenin:44 Screening information is obtained from the patient. Fall risk: No risks identified. cf2 Assistance ADL's: requires no assistance with activities of daily living. Abuse/DV Screen: The patient / caregiver reports he/she is: not in a situation that causes fear, pain or injury. Nutritional screening: No deficits noted. Advance Directives: Further advance directive information is declined. home support is adequate. Assessment: 04:22 General: Patient received from triage area. cf2 04:44 Adult Sepsis Screening: The patient does not have new or worsening altered mentation. cf2 Patient's respiratory rate is less than 22. Systolic blood pressure is greater than 100. Patient has a qSOFA score of 0- Negative Sepsis Screen. Pain: Denies pain. Pain: Also complains of no other associated symptoms. Neurological: No deficits noted. EENT: No deficits noted. Reports nasal congestion. Cardiovascular: No deficits noted. Respiratory: No deficits noted. GI: No deficits noted. : No deficits noted. Derm: No deficits noted. Musculoskeletal: No deficits noted. Injury Description: No known injury. 04:44 Pain: Location: face Quality of pain is described as. Pain: Pain began 2-3 days ago Is. cf2 Pain: Pain currently is 3 out of 10 on a pain scale. At worst was 5 out of 10 on a pain scale. Pain does not radiate. Alleviated by. Vital Signs: 01:48 BP 104 / 50 LA Sitting (auto/); Pulse 81; Resp 18 S; Temp 98.7(TE); Pulse Ox 100% on af2 R/A; Weight 87.54 kg (R); Height 5 ft. 4 in. (162.56 cm) (R); Pain 10/10; 06:14 BP 110 / 61; Pulse 76; Resp 16; Temp 98.0; Pulse Ox 98% on R/A; Pain 2/10; cf2 01:48 Body Mass Index 33.13 (87.54 kg, 162.56 cm) af2 Vitals: 01:48 Log In Time: November 18, 2016 at 01:29. af2 ED Course: 01:31 Patient visited by Swapnil Mathews Reg. pm4 01:31 Timothy Hull DO is Private Physician. pm4 01:31 Patient moved to Waiting pm4 01:51 Triage Initiated af2 01:53 Patient visited by Phoebe Mi RN. af2 01:54 Patient moved to MTA Wait af2 02:03 Patient moved to Pre RCE af2 04:15 Patient moved to 12 af2 04:21 Michael Bullock MD is Attending Physician. pc 04:22 Zofia Gomez RN is Primary Nurse. cf2 04:24 Patient visited by Zofia Gomez RN. cf2 04:26 Patient visited by Michael Bullock MD. pc 04:35 Patient moved to Radiology daron 04:44 Patient visited by Zofia Gomez RN. cf2 04:44 Patient moved to 12 daron 04:44 The patient / caregiver is instructed regarding the plan of care and ED course. Patient cf2 has correct armband on for positive identification. Placed in gown. Bed in low position. Call light in reach. Side rails up X 1. Side rails up X2. Property :Personal belongings accompany Pt. Door closed. Noise minimized. Visitors limited. Lights dimmed. Moved to private room. Verbal reassurance given. Warm blanket given. Pillow given. Head of bed elevated. Diet: Patient is NPO. 04:44 No IV's were initiated during this patient's visit. No procedures done that require cf2 assistance. 04:57 [facility] Payment Agreement was scanned into [employer] and attached to record. hs2 05:20 [facility] is Referral Physician. pc 06:13 Patient visited by Zofia Gomez RN. cf2 06:13 Patient visited by oZfia Gomez RN. cf2 06:15 Sinuses Returned. EDMS Administered Medications: 05:39 Drug: Doxycycline 100 mg [doxycycline hyclate 100 mg tablet (1 tabs)] Route: PO; tm5 05:39 Drug: HYDROcodone-acetaminophen 4 pack- 1 packets [hydrocodone 5 mg-acetaminophen 325 tm5 mg tablet (1 tabs)] {Co-Signature: cf2 (Zofia Gomez RN).} Route: PO; 06:13 Drug: Pseudoephedrine 60 mg Route: PO; cf2 Order Results: Radiology Order: Sinuses Test: Sinuses REASON FOR EXAMINATION: facial pain; Clinical: Facial pain.; ; Technique: Christianson, Navas, lateral, and SMV views.; ; Findings:; Sinuses are well aerated and clear. No mucosal thickening or fluid levels are; identified. No foreign body or abnormal calcifications appreciated. Osseous; structures appear intact.; ; Impression:; Normal sinus radiograph series; ; ; Signed by; Jayson Thompson MD 11/18/2016 05:42 A; Outcome: 05:20 Discharge ordered by Provider. pc 06:14 Discharge Assessment: Patient awake, alert and oriented x 3. No cognitive and/or cf2 functional deficits noted. Patient verbalized understanding of disposition instructions. Patient awake and alert. Oriented to person, place and time. patient administered narcotics - yes. Pt provided with safe discharge. The following High Risk Discharge criteria are identified: None. Discharged to home. Condition: good Condition: stable Condition: improved. Discharge instructions given to patient, Instructed on discharge instructions, follow up and referral plans. medication usage, Prescriptions given X 2. No special radiology studies were completed. 06:15 Patient left the ED. cf2 Signatures: Dispatcher [employer] EDMS Michael Bullock MD MD pc Bartlett, Floyd fab Fulton, Amber, RN RN af2 Devora Guerrero, Reg Reg hs2 Zofia Gomez RN RN cf2 Madisyn Villa RN RN tm5 Swapnil Mathews, Reg Reg pm4 Zofia Gomez RN cf2 Chart Complete MTDD
== END 2016-11-18 06:15 | disposition home or self-care (01) ==
LOC: M ED 01:29
DX: J01.90 Acute sinusitis, unspecified (principal); E11.9 Type 2 diabetes mellitus without complications; J30.2 Other seasonal allergic rhinitis; Z98.84 Bariatric surgery status; Z79.899 Other long term (current) drug therapy

== ENCOUNTER 2016-11-22 04:46 | Emergency (ER) | payer BC, MEDICAID ==
[2016-11-22] MEDS ORDERED: METOCLOPRAMIDE INJ 10MG/2ML VIAL (J2765) As Ordered ONE (07:49)
--- NOTE | 2016-11-22 09:04 | EDDOCDS ---
Physician Documentation [facility] Name: Elisabet Castañeda Age: 41 yrs Sex: Female : 1975 Arrival Date: 11/22/2016 Time: 04:46 Bed 9 Private MD: Disposition: 11/22 07:53 I have independently interviewed and examined the patient, and I agree with the pc investigation, diagnosis and treatment plan as documented by the Resident. Disposition: 11/22/16 08:48 Discharged to Home/Self Care. Impression: Headache. - Condition is Stable. - Discharge Instructions: Migraine Headache, [id number]. - Medication Reconciliation, Local Pharmacy Hours, Work Release Form - 1 day form. - Follow up: Private Physician; When: Call to arrange an appointment; Reason: Recheck today's complaints, Continuance of care. - Problem is new. - Symptoms have improved. - Notes: You were evaluated in the emergency department for a headache. You were given medication which improved your headache. The CT of your head was negative. Please schedule an appointment with Dr. Hull at your soonest convenience to discuss today's complaints. Historical: - Allergies: Seasonal; - Home Meds: 1. Claritin 10 mg Oral tab 1 tab once daily 2. dicyclomine 20 mg Oral tab 4 times per day 3. ketorolac 10 mg Oral tab three times a day as needed 4. multivitamin Oral cap 2 tab daily 5. Vitamin B-12 Oral 500 mcg daily (Last dose: 11/21/2016) 6. Vitamin D Oral 1,000 unit four times a day (Last dose: 11/21/2016) 7. Zofran (as hydrochloride) 4 mg odt Oral tab 8. misoprostol 200 mcg oral tab 1 tab 4 times per day (Last dose: 11/21/2016) 9. omeprazole 40 mg Oral cpDR 1 cap once daily (Last dose: 11/21/2016) 10. sucralfate 1 gram Oral tab 1 tab 4 times per day (Last dose: 11/22/2016) 11. Sudogest 30 mg Oral tab 2 tabs every 6 hours (Last dose: 11/22/2016) - PMHx: Diet controlled Diabetes; Seasonal Allergies; - PSHx: Uterine Ablation; Gastric Bypass; mass removal left ovary; Cesearean Section; Appendectomy; - Social history: Smoking status: Patient states former smoker of tobacco. No barriers to communication noted, The patient speaks fluent Belarusian, Speaks appropriately for age. - Family history: Not pertinent. - : The pt / caregiver states he / she is not on anticoagulants. Home medication list is obtained from the patient. - Exposure Risk Screening:: None identified. 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 6 in. (167.64 cm) (R); Pain 7/10; 08:59 BP 115 / 58; Pulse 72; Resp 16; Temp 97.9(O); Pulse Ox 98% on R/A; Pain 1/10; bcj 05:03 Body Mass Index 31.15 (87.54 kg, 167.64 cm) [facility] [place] MDM: 06:03 [facility] Payment Agreement was scanned into [employer] and attached to record. hs2 07:28 Financial registration complete. hs2 07:41 CT Head Without Contrast Ordered. EDMS 07:46 Metoclopramide 10 mg IV at 40 mg/hr once over 15 mins ordered. jo4 07:46 IV Saline Lock ordered. jo4 Administered Medications: 08:08 Drug: Metoclopramide 10 mg [metoclopramide 5 mg/mL injection solution] Route: IV; Rate: bcj 40 mg/hr; Infused Over: 15 mins; Site: right antecubital; 08:36 Follow up: IV Status: Completed infusion bcj Signatures: Dispatcher [employer] EDMS Michael Bullock MD MD pc Garrison, Kelly, RN RN km Jose Alfredo Arriaga RN RN bcCaroline Baez DO DO jo4 Devora Guerrero, Reg Reg hs2 The chart was reviewed and I authenticate all verbal orders and agree with the evaluation and treatment provided.Attachments: 06:03 [facility] Payment Agreement hs2 MTDD
--- NOTE | 2016-11-22 09:04 | EDDOCDS ---
Nurse's Notes [facility] Name: Elisabet Castañeda Age: 41 yrs Sex: Female : 1975 Arrival Date: 11/22/2016 Time: 04:46 Bed 9 Private MD: Diagnosis: Headache Presentation: 11/22 04:56 Presenting complaint: Patient states: Pain Right side of forehead. Blurred vision. kmg1 Dizzy/light headedness. This patient has no additional risk factors. Suicide/Homicide risk assessment- the patient denies having any suicidal and/or homicidal ideations and does not present with any other emotional, behavioral or mental health complaints. Status: Patient is not a legal services manager or dependent. Transition of care: patient was not received from another setting of care. 04:56 Acuity: SAMUEL Level 3 kmg1 04:56 Method Of Arrival: Walkin/Carried/Asstd kmg1 09:03 Adult Sepsis Screening: The patient does not have new or worsening altered mentation. bcj Patient's respiratory rate is less than 22. Systolic blood pressure is greater than 100. Patient has a qSOFA score of 0- Negative Sepsis Screen. Triage Assessment: 05:03 Headache History: A change in the character of the headache the patient is experiencing kmg1 has occured. General: Appears in no apparent distress, comfortable, Behavior is appropriate for age, cooperative, pleasant. Pain: Location: right side of forehead Pain currently is 7 out of 10 on a pain scale. Quality of pain is described as throbbing, Pain began 3 hours ago Also complains of photophobia. HIV screening NA for this visit Offered previously. Neurological: Level of Consciousness is awake, alert, Oriented to person, place, time, Reports dizziness, headache photophobia. 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 Claritin 10 mg Oral tab 1 tab once daily 2. dicyclomine 20 mg Oral tab 4 times per day 3. ketorolac 10 mg Oral tab three times a day as needed 4. multivitamin Oral cap 2 tab daily 5. Vitamin B-12 Oral 500 mcg daily (Last dose: 11/21/2016) 6. Vitamin D Oral 1,000 unit four times a day (Last dose: 11/21/2016) 7. Zofran (as hydrochloride) 4 mg odt Oral tab 8. misoprostol 200 mcg oral tab 1 tab 4 times per day (Last dose: 11/21/2016) 9. omeprazole 40 mg Oral cpDR 1 cap once daily (Last dose: 11/21/2016) 10. sucralfate 1 gram Oral tab 1 tab 4 times per day (Last dose: 11/22/2016) 11. Sudogest 30 mg Oral tab 2 tabs every 6 hours (Last dose: 11/22/2016) - PMHx: Diet controlled Diabetes; Seasonal Allergies; - PSHx: Uterine Ablation; Gastric Bypass; mass removal left ovary; Cesearean Section; Appendectomy; - Social history: Smoking status: Patient states former smoker of tobacco. No barriers to communication noted, The patient speaks fluent Macanese, Speaks appropriately for age. - Family history: Not pertinent. - : The pt / caregiver states he / she is not on anticoagulants. Home medication list is obtained from the patient. - Exposure Risk Screening:: None identified. Screenin:12 Screening information is obtained from the patient. Fall risk: No risks identified. bcj Assistance ADL's: requires no assistance with activities of daily living. Abuse/DV Screen: The patient / caregiver reports he/she is: not in a situation that causes fear, pain or injury. Nutritional screening: No deficits noted. Advance Directives: Currently, there is no health care proxy. home support is adequate. Assessment: 06:42 General: Appears uncomfortable, Behavior is appropriate for age, cooperative. Pain: js15 Location: face and right side of forehead Pain currently is 10 out of 10 on a pain scale. Quality of pain is described as throbbing. Pain: Aggravated by light Also complains of photophobia, dizziness. Neurological: Level of Consciousness is awake, alert, obeys commands, Oriented to person, place, time. Respiratory: Airway is patent Respiratory effort is even, unlabored, Respiratory pattern is regular, symmetrical. Derm: Skin is pink, warm & dry. 08:12 General: Appears in no apparent distress, comfortable, Behavior is cooperative. Pain: bcj Location: right side of forehead Pain currently is 7 out of 10 on a pain scale. Quality of pain is described as aching, dull. Neurological: Level of Consciousness is awake, alert, Oriented to person, place, time. Derm: Skin is pink, warm & dry. 08:59 General: Appears in no apparent distress, comfortable, Behavior is cooperative. Pain: bcj Location: right side of forehead Pain currently is 1 out of 10 on a pain scale. Neurological: Level of Consciousness is awake, alert. Derm: Skin is pink, warm & dry. Vital Signs: 05:03 BP 104 / 58; Pulse 72; Resp 18; Temp 97.6(O); Pulse Ox 100% on R/A; Weight 87.54 kg [facility] [place] (R); Height 5 ft. 6 in. (167.64 cm) (R); Pain 7/10; 08:59 BP 115 / 58; Pulse 72; Resp 16; Temp 97.9(O); Pulse Ox 98% on R/A; Pain 1/10; bcj 05:03 Body Mass Index 31.15 (87.54 kg, 167.64 cm) [facility] [place] Vitals: 05:03 Log In Time: November 22, 2016 at 04:47. [facility] [place] ED Course: 04:47 Patient visited by Devora Guerrero Reg. hs2 04:47 Patient moved to Waiting hs2 04:57 Triage Initiated [facility] 05:08 Patient moved to 9 km 05:58 Patient visited by Shelli Vallejo PCA. ray 06:03 [facility] Payment Agreement was scanned into [employer] and attached to record. hs2 06:43 Patient visited by Lissette Dean RN. js15 06:59 [facility] Perry [facility] jo4 06:59 Michael Bullock MD is Attending Physician. jo4 07:22 Patient visited by Caroline Perry DO. jo4 07:22 Patient visited by Caroline Perry DO. jo4 08:12 No apparent distress. Resting quietly. awaiting re-evaluation by ER physician. bcj 08:12 The patient / caregiver is instructed regarding the plan of care and ED course. Patient bcj has correct armband on for positive identification. Placed in gown. Bed in low position. Adult w/ patient. 08:12 Inserted saline lock: 20 gauge in right antecubital area. bcj 08:14 Patient visited by Jose Alfredo Arriaga RN. bcj 08:59 Discontinued lock intact. No procedures done that require assistance. bcj 09:03 Patient visited by Jose Alferdo Arriaga, RN. [facility] Administered Medications: 08:08 Drug: Metoclopramide 10 mg [metoclopramide 5 mg/mL injection solution] Route: IV; Rate: bcj 40 mg/hr; Infused Over: 15 mins; Site: right antecubital; 08:36 Follow up: IV Status: Completed infusion bcj Order Results: There are currently no results for this order. Outcome: 08:48 Discharge ordered by Provider. jo4 08:59 Discharge Assessment: patient administered narcotics - no. The following High Risk [facility] Discharge criteria are identified: None. Discharged to home ambulatory, with family. Condition: stable. Discharge instructions given to patient, Instructed on discharge instructions, follow up and referral plans. medication usage. CT Study completed. Property :Personal belongings accompany Pt. 09:03 Patient left the ED. [facility] Signatures: Esperanza Cannon, RN RN kmg1 Jose Alfredo Arriaga, RN RN [facility] Shelli Vallejo, Lissette SánchezRN RN js15 Caroline Perry DO DO jo4 Devora Guerrero, Reg Reg hs2 MTDD
--- NOTE | 2016-11-22 11:26 | REP ---
Clinical: Acute headaches. Comparison: None. Findings: The ventricles, sulci, and cisterns are normal in position and appearance. Hernandez-white differentiation is maintained. No acute intracranial hemorrhage, mass/mass effect, pathology or trauma/injury. No evidence for acute infarction. No extra-axial fluid collection. Calvarium is intact. Paranasal sinuses and mastoid air cells are clear. Impression: Normal noncontrast head CT. No evidence for acute intracranial pathology or trauma/injury. Signed by Jayson Thompson MD 11/22/2016 08:07 A
--- NOTE | 2016-11-24 10:04 | EDDOCDS ---
Physician Documentation [facility] Name: Elisabet Castañeda Age: 41 yrs Sex: Female : 1975 Arrival Date: 11/22/2016 Time: 04:46 Bed 9 Private MD: Disposition: 11/22 07:53 I have independently interviewed and examined the patient, and I agree with the pc investigation, diagnosis and treatment plan as documented by the Resident. Disposition: 11/22/16 08:48 Discharged to Home/Self Care. Impression: Headache. - Condition is Stable. - Discharge Instructions: Migraine Headache, [id number]. - Medication Reconciliation, Local Pharmacy Hours, Work Release Form - 1 day form. - Follow up: Private Physician; When: Call to arrange an appointment; Reason: Recheck today's complaints, Continuance of care. - Problem is new. - Symptoms have improved. - Notes: You were evaluated in the emergency department for a headache. You were given medication which improved your headache. The CT of your head was negative. Please schedule an appointment with Dr. Hlul at your soonest convenience to discuss today's complaints. Historical: - Allergies: Seasonal; - Home Meds: 1. Claritin 10 mg Oral tab 1 tab once daily 2. dicyclomine 20 mg Oral tab 4 times per day 3. ketorolac 10 mg Oral tab three times a day as needed 4. multivitamin Oral cap 2 tab daily 5. Vitamin B-12 Oral 500 mcg daily (Last dose: 11/21/2016) 6. Vitamin D Oral 1,000 unit four times a day (Last dose: 11/21/2016) 7. Zofran (as hydrochloride) 4 mg odt Oral tab 8. misoprostol 200 mcg oral tab 1 tab 4 times per day (Last dose: 11/21/2016) 9. omeprazole 40 mg Oral cpDR 1 cap once daily (Last dose: 11/21/2016) 10. sucralfate 1 gram Oral tab 1 tab 4 times per day (Last dose: 11/22/2016) 11. Sudogest 30 mg Oral tab 2 tabs every 6 hours (Last dose: 11/22/2016) - PMHx: Diet controlled Diabetes; Seasonal Allergies; - PSHx: Uterine Ablation; Gastric Bypass; mass removal left ovary; Cesearean Section; Appendectomy; - Social history: Smoking status: Patient states former smoker of tobacco. No barriers to communication noted, The patient speaks fluent German, Speaks appropriately for age. - Family history: Not pertinent. - : The pt / caregiver states he / she is not on anticoagulants. Home medication list is obtained from the patient. - Exposure Risk Screening:: None identified. 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 6 in. (167.64 cm) (R); Pain 7/10; 08:59 BP 115 / 58; Pulse 72; Resp 16; Temp 97.9(O); Pulse Ox 98% on R/A; Pain 1/10; bcj 05:03 Body Mass Index 31.15 (87.54 kg, 167.64 cm) [facility] [place] MDM: 06:03 [facility] Payment Agreement was scanned into [employer] and attached to record. hs2 07:28 Financial registration complete. hs2 07:41 CT Head Without Contrast Ordered. EDMS 07:46 Metoclopramide 10 mg IV at 40 mg/hr once over 15 mins ordered. jo4 07:46 IV Saline Lock ordered. jo4 14:48 T-Sheet-- Draft Copy was scanned into [employer] and attached to record. gb Administered Medications: 08:08 Drug: Metoclopramide 10 mg [metoclopramide 5 mg/mL injection solution] Route: IV; Rate: bcj 40 mg/hr; Infused Over: 15 mins; Site: right antecubital; 08:36 Follow up: IV Status: Completed infusion [facility] Signatures: Dispatcher [employer] EDMS Michael Bullock MD MD pc Garrison, Kelly, RN RN [facility] [place] Jose Alfredo Arriaga RN RN bcMinna Puentes, Reg Reg gb Caroline Perry DO DO jo4 Devora Guerrero, Reg Reg hs2 The chart was reviewed and I authenticate all verbal orders and agree with the evaluation and treatment provided.Attachments: 06:03 [facility] Payment Agreement hs2 14:48 T-Sheet-- Draft Copy gb Chart Complete MTDD
--- NOTE | 2016-11-24 10:04 | EDDOCDS ---
Nurse's Notes [facility] Name: Elisabet Castañeda Age: 41 yrs Sex: Female : 1975 Arrival Date: 11/22/2016 Time: 04:46 Bed 9 Private MD: Diagnosis: Headache Presentation: 11/22 04:56 Presenting complaint: Patient states: Pain Right side of forehead. Blurred vision. kmg1 Dizzy/light headedness. This patient has no additional risk factors. Suicide/Homicide risk assessment- the patient denies having any suicidal and/or homicidal ideations and does not present with any other emotional, behavioral or mental health complaints. 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 Transition of care: patient was not received from another setting of care. 04:56 Acuity: SAMUEL Level 3 kmg1 04:56 Method Of Arrival: Walkin/Carried/Asstd kmg1 09:03 Adult Sepsis Screening: The patient does not have new or worsening altered mentation. bcj Patient's respiratory rate is less than 22. Systolic blood pressure is greater than 100. Patient has a qSOFA score of 0- Negative Sepsis Screen. Triage Assessment: 05:03 Headache History: A change in the character of the headache the patient is experiencing kmg1 has occured. General: Appears in no apparent distress, comfortable, Behavior is appropriate for age, cooperative, pleasant. Pain: Location: right side of forehead Pain currently is 7 out of 10 on a pain scale. Quality of pain is described as throbbing, Pain began 3 hours ago Also complains of photophobia. HIV screening NA for this visit Offered previously. Neurological: Level of Consciousness is awake, alert, Oriented to person, place, time, Reports dizziness, headache photophobia. 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 Claritin 10 mg Oral tab 1 tab once daily 2. dicyclomine 20 mg Oral tab 4 times per day 3. ketorolac 10 mg Oral tab three times a day as needed 4. multivitamin Oral cap 2 tab daily 5. Vitamin B-12 Oral 500 mcg daily (Last dose: 11/21/2016) 6. Vitamin D Oral 1,000 unit four times a day (Last dose: 11/21/2016) 7. Zofran (as hydrochloride) 4 mg odt Oral tab 8. misoprostol 200 mcg oral tab 1 tab 4 times per day (Last dose: 11/21/2016) 9. omeprazole 40 mg Oral cpDR 1 cap once daily (Last dose: 11/21/2016) 10. sucralfate 1 gram Oral tab 1 tab 4 times per day (Last dose: 11/22/2016) 11. Sudogest 30 mg Oral tab 2 tabs every 6 hours (Last dose: 11/22/2016) - PMHx: Diet controlled Diabetes; Seasonal Allergies; - PSHx: Uterine Ablation; Gastric Bypass; mass removal left ovary; Cesearean Section; Appendectomy; - Social history: Smoking status: Patient states former smoker of tobacco. No barriers to communication noted, The patient speaks fluent [place]ibian, Speaks appropriately for age. - Family history: Not pertinent. - : The pt / caregiver states he / she is not on anticoagulants. Home medication list is obtained from the patient. - Exposure Risk Screening:: None identified. Screenin:12 Screening information is obtained from the patient. Fall risk: No risks identified. bcj Assistance ADL's: requires no assistance with activities of daily living. Abuse/DV Screen: The patient / caregiver reports he/she is: not in a situation that causes fear, pain or injury. Nutritional screening: No deficits noted. Advance Directives: Currently, there is no health care proxy. home support is adequate. Assessment: 06:42 General: Appears uncomfortable, Behavior is appropriate for age, cooperative. Pain: js15 Location: face and right side of forehead Pain currently is 10 out of 10 on a pain scale. Quality of pain is described as throbbing. Pain: Aggravated by light Also complains of photophobia, dizziness. Neurological: Level of Consciousness is awake, alert, obeys commands, Oriented to person, place, time. Respiratory: Airway is patent Respiratory effort is even, unlabored, Respiratory pattern is regular, symmetrical. Derm: Skin is pink, warm & dry. 08:12 General: Appears in no apparent distress, comfortable, Behavior is cooperative. Pain: bcj Location: right side of forehead Pain currently is 7 out of 10 on a pain scale. Quality of pain is described as aching, dull. Neurological: Level of Consciousness is awake, alert, Oriented to person, place, time. Derm: Skin is pink, warm & dry. 08:59 General: Appears in no apparent distress, comfortable, Behavior is cooperative. Pain: bcj Location: right side of forehead Pain currently is 1 out of 10 on a pain scale. Neurological: Level of Consciousness is awake, alert. Derm: Skin is pink, warm & dry. Vital Signs: 05:03 BP 104 / 58; Pulse 72; Resp 18; Temp 97.6(O); Pulse Ox 100% on R/A; Weight 87.54 kg [facility] (R); Height 5 ft. 6 in. (167.64 cm) (R); Pain 7/10; 08:59 BP 115 / 58; Pulse 72; Resp 16; Temp 97.9(O); Pulse Ox 98% on R/A; Pain 1/10; bcj 05:03 Body Mass Index 31.15 (87.54 kg, 167.64 cm) [facility] Vitals: 05:03 Log In Time: November 22, 2016 at 04:47. [facility] ED Course: 04:47 Patient visited by Devora Guerrero Reg. hs2 04:47 Patient moved to Waiting hs2 04:57 Triage Initiated [facility] 05:08 Patient moved to 9 km 05:58 Patient visited by Shelli Vallejo PCA. ray 06:03 [facility] Payment Agreement was scanned into [employer] and attached to record. hs2 06:43 Patient visited by Lissette Dean RN. js15 06:59 [facility] jo4 06:59 Michael Bullock MD is Attending Physician. jo4 07:22 Patient visited by Caroline Perry DO. jo4 07:22 Patient visited by Caroline Perry DO. jo4 08:12 No apparent distress. Resting quietly. awaiting re-evaluation by ER physician. bcj 08:12 The patient / caregiver is instructed regarding the plan of care and ED course. Patient bcj has correct armband on for positive identification. Placed in gown. Bed in low position. Adult w/ patient. 08:12 Inserted saline lock: 20 gauge in right antecubital area. bcj 08:14 Patient visited by Jose Alfredo Arriaga RN. bcj 08:59 Discontinued lock intact. No procedures done that require assistance. bcj 09:03 Patient visited by Jose Alfredo Arriaga, RN. [facility] 11:53 CT Head Without Contrast Returned. EDMS 14:48 T-Sheet-- Draft Copy was scanned into [employer] and attached to record. gb Administered Medications: 08:08 Drug: Metoclopramide 10 mg [metoclopramide 5 mg/mL injection solution] Route: IV; Rate: bcj 40 mg/hr; Infused Over: 15 mins; Site: right antecubital; 08:36 Follow up: IV Status: Completed infusion bcj Order Results: Radiology Order: CT Head Without Contrast Test: CT Head Without Contrast REASON FOR EXAMINATION: Headache; Clinical: Acute headaches.; ; Comparison: None.; ; Findings:; The ventricles, sulci, and cisterns are normal in position and appearance.; Hernandez-white differentiation is maintained. No acute intracranial hemorrhage,; mass/mass effect, pathology or trauma/injury. No evidence for acute infarction.; No extra-axial fluid collection. Calvarium is intact. Paranasal sinuses and; mastoid air cells are clear.; ; Impression:; Normal noncontrast head CT.; No evidence for acute intracranial pathology or trauma/injury.; ; ; Signed by; Jayson Thompson MD 11/22/2016 08:07 A; Outcome: 08:48 Discharge ordered by Provider. jo4 08:59 Discharge Assessment: patient administered narcotics - no. The following High Risk [facility] Discharge criteria are identified: None. Discharged to home ambulatory, with family. Condition: stable. Discharge instructions given to patient, Instructed on discharge instructions, follow up and referral plans. medication usage. CT Study completed. Property :Personal belongings accompany Pt. 09:03 Patient left the ED. [facility] Signatures: Dispatcher [facility] EDAL Esperanza Cannon, RN RN kmg1 Jose Alfredo Arriaga, RN RN [facility] Minna Restrepo, Reg Reg gb Shelli Vallejo, STEAM DRIER TENDER STEAM DRIER TENDER Lissette Kearney RN RN js15 Caroline Perry DO DO jo4 Devora Guerrero, Reg Reg hs2 Chart Complete MTDD
--- NOTE | 2016-11-24 10:04 | EDDOCDS ---
Physician Documentation [facility] Name: Elisabet Castañeda Age: 41 yrs Sex: Female : 1975 Arrival Date: 11/22/2016 Time: 04:46 Bed 9 Private MD: Disposition: 11/22 07:53 I have independently interviewed and examined the patient, and I agree with the pc investigation, diagnosis and treatment plan as documented by the Resident. Disposition: 11/22/16 08:48 Discharged to Home/Self Care. Impression: Headache. - Condition is Stable. - Discharge Instructions: Migraine Headache, Esij-lo-Tvas. - Medication Reconciliation, Local Pharmacy Hours, Work Release Form - 1 day form. - Follow up: Private Physician; When: Call to arrange an appointment; Reason: Recheck today's complaints, Continuance of care. - Problem is new. - Symptoms have improved. - Notes: You were evaluated in the emergency department for a headache. You were given medication which improved your headache. The CT of your head was negative. Please schedule an appointment with Dr. Hull at your soonest convenience to discuss today's complaints. Historical: - Allergies: Seasonal; - Home Meds: 1. Claritin 10 mg Oral tab 1 tab once daily 2. dicyclomine 20 mg Oral tab 4 times per day 3. ketorolac 10 mg Oral tab three times a day as needed 4. multivitamin Oral cap 2 tab daily 5. Vitamin B-12 Oral 500 mcg daily (Last dose: 11/21/2016) 6. Vitamin D Oral 1,000 unit four times a day (Last dose: 11/21/2016) 7. Zofran (as hydrochloride) 4 mg odt Oral tab 8. misoprostol 200 mcg oral tab 1 tab 4 times per day (Last dose: 11/21/2016) 9. omeprazole 40 mg Oral cpDR 1 cap once daily (Last dose: 11/21/2016) 10. sucralfate 1 gram Oral tab 1 tab 4 times per day (Last dose: 11/22/2016) 11. Sudogest 30 mg Oral tab 2 tabs every 6 hours (Last dose: 11/22/2016) - PMHx: Diet controlled Diabetes; Seasonal Allergies; - PSHx: Uterine Ablation; Gastric Bypass; mass removal left ovary; Cesearean Section; Appendectomy; - Social history: Smoking status: Patient states former smoker of tobacco. No barriers to communication noted, The patient speaks fluent [place], Speaks appropriately for age. - Family history: Not pertinent. - : The pt / caregiver states he / she is not on anticoagulants. Home medication list is obtained from the patient. - Exposure Risk Screening:: None identified. 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 6 in. (167.64 cm) (R); Pain 7/10; 08:59 BP 115 / 58; Pulse 72; Resp 16; Temp 97.9(O); Pulse Ox 98% on R/A; Pain 1/10; bcj 05:03 Body Mass Index 31.15 (87.54 kg, 167.64 cm) [facility] [place] [place] MDM: 06:03 [facility] Payment Agreement was scanned into [employer] and attached to record. hs2 07:28 Financial registration complete. hs2 07:41 CT Head Without Contrast Ordered. EDMS 07:46 Metoclopramide 10 mg IV at 40 mg/hr once over 15 mins ordered. jo4 07:46 IV Saline Lock ordered. jo4 14:48 T-Sheet-- Draft Copy was scanned into [employer] and attached to record. gb Administered Medications: 08:08 Drug: Metoclopramide 10 mg [metoclopramide 5 mg/mL injection solution] Route: IV; Rate: bcj 40 mg/hr; Infused Over: 15 mins; Site: right antecubital; 08:36 Follow up: IV Status: Completed infusion [facility] Signatures: Dispatcher [employer] EDMS Michael Bullock MD MD pc Garrison, Kelly, RN RN [facility] Jose Alfredo Arriaga RN RN bcMinna Puentes, Reg Reg gb Caroline Perry DO DO jo4 Devora Guerrero, Reg Reg hs2 The chart was reviewed and I authenticate all verbal orders and agree with the evaluation and treatment provided.Attachments: 06:03 [facility] Payment Agreement hs2 14:48 T-Sheet-- Draft Copy gb Chart Complete MTDD
== END 2016-11-22 09:03 | disposition home or self-care (01) ==
LOC: M ED 04:46
DX: R51 Headache (principal); E11.9 Type 2 diabetes mellitus without complications; J30.9 Allergic rhinitis, unspecified; Z98.84 Bariatric surgery status; Z90.89 Acquired absence of other organs; Z87.891 Personal history of nicotine dependence; Z79.899 Other long term (current) drug therapy
CPT/HCPCS: 70450; 96365; 99284; J2765

== ENCOUNTER → 2016-12-29 | Outpatient (CLI) | payer BC, MEDICAID, OTHER ==
[~2016-12-29] VITALS: Ht 170.2 cm; Wt 89.4 kg
[~2016-12-29] MED LIST changes: +LIDOCAINE 2% INJ 100 MG/5 ML SDV (FOR ANES.) As Ordered ONE; +MISO200T3 PO; +NS 1,000 ML IV SCH; +OMEP40CA2 PO; +PROPOFOL 500 MG/50 ML VIAL As Ordered ONE; +SUCR1TAB56 PO; +TOPI25CA PO; +VITA100037 PO; +VITA100L PO; +ePHEDrine SULFATE 25 MG/5 ML(5MG/ML) SYRINGE As Ordered ONE
--- NOTE | 2016-12-29 09:43 | ROOR ---
Patient Name: Elisabet Castañeda Procedure Date: 12/29/2016 9:08 AM Date of : 1975 Age: 41 [facility] Note Status: Finalized Procedure: Upper GI endoscopy Indications: Heartburn, Melena Providers: Jose Antonio Langford DO Referring MD: Timothy Hull DO Requesting Provider: Medicines: Propofol per Anesthesia Complications: No immediate complications. Procedure: Pre-Anesthesia Assessment: - Prior to the procedure, a History and Physical was performed, and patient medications and allergies were reviewed. The patient is competent. The risks and benefits of the procedure and the sedation options and risks were discussed with the patient. All questions were answered and informed consent was obtained. Patient identification and proposed procedure were verified by the physician, the nurse, the anesthesiologist and the relay technician in the endoscopy suite. Mental Status Examination: normal. Airway Examination: normal oropharyngeal airway and neck mobility. Respiratory Examination: clear to auscultation. CV Examination: normal. Prophylactic Antibiotics: The patient does not require prophylactic antibiotics. Prior Anticoagulants: The patient has taken no previous anticoagulant or antiplatelet agents. ASA Grade Assessment: II - A patient with mild systemic disease. After reviewing the risks and benefits, the patient was deemed in satisfactory condition to undergo the procedure. The anesthesia plan was to use monitored anesthesia care (MAC). Immediately prior to administration of medications, the patient was re-assessed for adequacy to receive sedatives. The heart rate, respiratory rate, oxygen saturations, blood pressure, adequacy of pulmonary ventilation, and response to care were monitored throughout the procedure. The physical status of the patient was re-assessed after the procedure. The Endoscope was introduced through the mouth, and advanced to the afferent and efferent jejunal loops. The upper GI endoscopy was accomplished without difficulty. The patient tolerated the procedure well. Findings: One non-bleeding linear ulcer with no stigmata of bleeding was found at the anastomosis. The lesion was 1 mm in largest dimension. The exam was otherwise without abnormality. Impression: - One non-bleeding jejunal ulcer with no stigmata of bleeding. - The examination was otherwise normal. - No specimens collected. Recommendation: - Patient has a contact number available for emergencies. The signs and symptoms of potential delayed complications were discussed with the patient. Return to normal activities tomorrow. Written discharge instructions were provided to the patient. - Continue present medications. Jose Antonio Langford DO 12/29/2016 9:42:59 AM This report has been signed electronically. Number of Addenda: 0 Note Initiated On: 12/29/2016 9:08 AM Estimated Blood Loss: Estimated blood loss: none.
--- NOTE | 2016-12-29 09:44 | ROOR ---
Patient Name: Elisabet Castañeda Procedure Date: 12/29/2016 9:08 AM Date of : 1975 Age: 41 [facility] Note Status: Finalized Procedure: Colonoscopy Indications: Melena Providers: Jose Antonio Langford DO Referring MD: Timothy Hull DO Requesting Provider: Medicines: Propofol per Anesthesia Complications: No immediate complications. Procedure: Pre-Anesthesia Assessment: - Prior to the procedure, a History and Physical was performed, and patient medications and allergies were reviewed. The patient is competent. The risks and benefits of the procedure and the sedation options and risks were discussed with the patient. All questions were answered and informed consent was obtained. Patient identification and proposed procedure were verified by the physician, the nurse, the anesthesiologist and the piano technician in the endoscopy suite. Mental Status Examination: alert and oriented. Airway Examination: normal oropharyngeal airway and neck mobility. Respiratory Examination: clear to auscultation. CV Examination: normal. Prophylactic Antibiotics: The patient does not require prophylactic antibiotics. Prior Anticoagulants: The patient has taken no previous anticoagulant or antiplatelet agents. ASA Grade Assessment: II - A patient with mild systemic disease. After reviewing the risks and benefits, the patient was deemed in satisfactory condition to undergo the procedure. The anesthesia plan was to use monitored anesthesia care (MAC). Immediately prior to administration of medications, the patient was re-assessed for adequacy to receive sedatives. The heart rate, respiratory rate, oxygen saturations, blood pressure, adequacy of pulmonary ventilation, and response to care were monitored throughout the procedure. The physical status of the patient was re-assessed after the procedure. The Colonoscope was introduced through the anus and advanced to the cecum, identified by the appendiceal orifice, ileocecal valve and palpation. The colonoscopy was performed without difficulty. The patient tolerated the procedure well. Findings: The entire examined colon appeared normal on direct and retroflexion views. Impression: - The entire examined colon is normal on direct and retroflexion views. - No specimens collected. Recommendation: - Patient has a contact number available for emergencies. The signs and symptoms of potential delayed complications were discussed with the patient. Return to normal activities tomorrow. Written discharge instructions were provided to the patient. - Repeat colonoscopy at age 49 for screening purposes. Jose Antonio Langford DO 12/29/2016 9:44:29 AM This report has been signed electronically. Number of Addenda: 0 Note Initiated On: 12/29/2016 9:08 AM Estimated Blood Loss: Estimated blood loss: none.
[2016-12-29 10:05] VITALS: BP 101/61
== END | disposition home or self-care (01) ==
LOC: M OPP 07:58
PROVIDERS: ATTEND Surgery
DX: K62.5 Hemorrhage of anus and rectum (principal); R12 Heartburn; K28.9 Gastrojejunal ulcer, unspecified as acute or chronic, without hemorrhage or perforation; E11.9 Type 2 diabetes mellitus without complications; F33.9 Major depressive disorder, recurrent, unspecified; G47.30 Sleep apnea, unspecified; D64.9 Anemia, unspecified; G43.909 Migraine, unspecified, not intractable, without status migrainosus; Z79.899 Other long term (current) drug therapy; Z98.0 Intestinal bypass and anastomosis status

== ENCOUNTER → 2017-01-07 | Outpatient (CLI) | payer OTHER ==
[~2017-01-07] MED LIST changes: -LIDOCAINE 2% INJ 100 MG/5 ML SDV (FOR ANES.) As Ordered ONE; -NS 1,000 ML IV SCH; -PROPOFOL 500 MG/50 ML VIAL As Ordered ONE; -ePHEDrine SULFATE 25 MG/5 ML(5MG/ML) SYRINGE As Ordered ONE
[2017-01-07 07:02] LABS: BASO % 0.8 % (0.0-1.0); EOS # 0.3 K/mm3 (0.0-0.50); EOS % 5.5 % (0.0-3.0); LARGE UNSTAINED CELL # 0.1 K/mm3 (0.0-0.4); LARGE UNSTAINED CELL % 2.3 % (0.0-4.0); LYMPH # 1.9 K/mm3 (1.5-4.5); LYMPH % 28.6 % (24.0-44.0); MEAN CORPUSCULAR HEMOGLOBIN 29.6 pg (27.0-33.0); MEAN CORPUSCULAR HGB CONC 31.6 g/dl (32.0-36.5); MEAN CORPUSCULAR VOLUME 93.7 fl (80.0-96.0); MONO # 0.4 K/mm3 (0.0-0.8); MONO % 5.7 % (0.0-5.0); NEUTROPHILS # 3.5 K/mm3 (1.8-7.7); NEUTROPHILS % 57.1 % (36.0-66.0); PLATELET COUNT, AUTOMATED 260 k/mm3 (150-450); RED CELL DISTRIBUTION WIDTH 12.6 % (11.5-14.5); WHITE BLOOD COUNT 6.1 K/mm3 (4.0-10.0)
[2017-01-07 07:32] LABS: ALBUMIN 3.5 GM/DL (3.2-5.2); ALBUMIN/GLOBULIN RATIO 1.03 (1.00-1.93); ALKALINE PHOSPHATASE 83 U/L (45-117); ALT/SGPT 23 U/L (12-78); ANION GAP 11 MEQ/L (8-16); AST/SGOT 21 U/L (15-37); BILIRUBIN,TOTAL 0.6 MG/DL (0.2-1.0); BLOOD UREA NITROGEN 9 MG/DL (7-18); CALCIUM LEVEL 8.7 MG/DL (8.5-10.1); CARBON DIOXIDE LEVEL 27 MEQ/L (21-32); CHLORIDE LEVEL 103 MEQ/L (98-107); CREATININE FOR GFR 0.56 MG/DL (0.55-1.02); FERRITIN 9 NG/ML (8-252); GLOMERULAR FILTRATION RATE > 60.0 (>58); GLUCOSE, FASTING 84 MG/DL (70-105); MAGNESIUM LEVEL 2.1 MG/DL (1.8-2.4); PERCENT SATURATION 9.5 % (13.2-37.4); PHOSPHORUS LEVEL 3.6 MG/DL (2.5-4.9); POTASSIUM SERUM 3.9 MEQ/L (3.5-5.1); SODIUM LEVEL 141 MEQ/L (136-145); TOTAL IRON BINDING CAPACITY 422 UG/DL (250-450); TOTAL PROTEIN 6.9 GM/DL (6.4-8.2)
[2017-01-07 13:16] LABS: VITAMIN B12 LEVEL 873 PG/ML (247-911)
[2017-01-07 13:35] LABS: PRETREATED FOLATE FOR RBCFOL 19.8 NG/ML
== END ==
LOC: M LAB 06:17
PROVIDERS: ATTEND Surgery
DX: K91.2 Postsurgical malabsorption, not elsewhere classified (principal); Z98.84 Bariatric surgery status; E55.9 Vitamin D deficiency, unspecified

== ENCOUNTER → 2017-02-21 | Outpatient (CLI) | payer OTHER ==
--- NOTE | 2017-02-21 08:48 | REP ---
Clinical: Cirrhosis. Technique: Real time pan scale ultrasound examination using curved array transducer. Findings: The liver demonstrates a somewhat heterogeneous echotexture as well as few small scattered calcifications which may reflect underlying hepatocellular disease and cirrhosis. No focal hepatic lesion identified. Pancreas is incompletely evaluated due to interposed bowel gas. The gallbladder is normal and without gallstones, wall thickening, or pericholecystic fluid. No biliary ductal dilatation is appreciated and the common bile duct measures 4.5 mm diameter. Right kidney is normal in reniform shape without hydronephrosis and measures 10.6 x 6.3 x 4.3 cm. Abdominal aorta is normal. No ascites. Impression: 1. Coarsened hepatic echotexture consistent with hepatocellular disease/cirrhosis, and no focal hepatic lesion. 2. Otherwise relatively normal limited abdominal ultrasound. Signed by Jayson Thompson MD 02/21/2017 07:48 A
== END ==
LOC: M RAD 06:54
PROVIDERS: ATTEND Student in an Organized Health Care Education/Training Program
DX: K74.60 Unspecified cirrhosis of liver (principal)

== ENCOUNTER → 2017-02-21 | Outpatient (CLI) | payer OTHER ==
[2017-02-21 09:21] LABS: ALBUMIN 3.5 GM/DL (3.2-5.2); ALBUMIN/GLOBULIN RATIO 1.06 (1.00-1.93); ALKALINE PHOSPHATASE 78 U/L (45-117); ALT/SGPT 19 U/L (12-78); ANION GAP 7 MEQ/L (8-16); AST/SGOT 22 U/L (15-37); BILIRUBIN,TOTAL 0.5 MG/DL (0.2-1.0); BLOOD UREA NITROGEN 11 MG/DL (7-18); CALCIUM LEVEL 8.5 MG/DL (8.5-10.1); CARBON DIOXIDE LEVEL 28 MEQ/L (21-32); CHLORIDE LEVEL 105 MEQ/L (98-107); CREATININE FOR GFR 0.58 MG/DL (0.55-1.02); GLOMERULAR FILTRATION RATE > 60.0 (>58); GLUCOSE, FASTING 83 MG/DL (70-105); SODIUM LEVEL 140 MEQ/L (136-145); TOTAL PROTEIN 6.8 GM/DL (6.4-8.2)
== END ==
LOC: M LAB 07:52
PROVIDERS: ATTEND Student in an Organized Health Care Education/Training Program
DX: K74.60 Unspecified cirrhosis of liver (principal)

== ENCOUNTER → 2017-04-04 | Outpatient (CLI) | payer MEDICAID, OTHER ==
[2017-04-04 10:07] LABS: BASO # 0.1 K/mm3 (0.0-0.2); EOS # 0.1 K/mm3 (0.0-0.50); EOS % 1.9 % (0.0-3.0); LARGE UNSTAINED CELL # 0.2 K/mm3 (0.0-0.4); LARGE UNSTAINED CELL % 2.6 % (0.0-4.0); LYMPH # 2.1 K/mm3 (1.5-4.5); MEAN CORPUSCULAR HGB CONC 32.6 g/dl (32.0-36.5); MEAN CORPUSCULAR VOLUME 89.1 fl (80.0-96.0); MONO # 0.4 K/mm3 (0.0-0.8); MONO % 6.6 % (0.0-5.0); NEUTROPHILS # 3.9 K/mm3 (1.8-7.7); NEUTROPHILS % 58.8 % (36.0-66.0); PLATELET COUNT, AUTOMATED 282 k/mm3 (150-450); RED CELL DISTRIBUTION WIDTH 15.7 % (11.5-14.5); WHITE BLOOD COUNT 6.6 K/mm3 (4.0-10.0)
[2017-04-04 10:27] LABS: CONTROL LINE HCG INT CTR LINE PRESENT
== END ==
LOC: M LAB 09:18
PROVIDERS: ATTEND Student in an Organized Health Care Education/Training Program
DX: R10.30 Lower abdominal pain, unspecified (principal)

== ENCOUNTER → 2017-04-20 | Outpatient (CLI) | payer MEDICAID ==
[~2017-04-20] MED LIST changes: -ATOR40TA PO; +ATOR40TA75 PO; -METF500T PO; +METF500T13 PO; -MISO200T3 PO; +MISO200T56 PO; +NORCOTAB PO; +TYLE325T5 PO; -VITA100037 PO; +VITA100067 PO
--- NOTE | 2017-04-20 18:23 | REP ---
CT abdomen and pelvis without IV or oral contrast: Renal stone protocol: History: Lower abdominal pain. Patient is status post gastric bypass. Comparison CT study is from 11/16/2016. CT findings: Digital preliminary network planner radiograph show tubal ligation clamps bilaterally in the pelvis. The lung bases are clear on axial CT images. The liver and spleen are normal in size homogeneous in texture except that there is a granulomatous calcification centrally located in the right lobe of the liver. This is unchanged. Surgical sutures are seen post gastric bypass in the left upper quadrant and left mid abdomen as before. No adrenal lesion is seen. Pancreas is unremarkable. No gallbladder abnormality is observed. Kidneys appear morphologically intact without evidence of hydronephrosis calculus or mass. Normal caliber aorta is seen. No abdominal wall defect is observed. No uterine or adnexal abnormality is seen. Urinary bladder is intact. Bone window settings show no bony destructive lesion. Impression: Status post gastric bypass surgery. Granulomatous calcification in the right lobe of the liver. Patient status post bilateral tubal ligation. Otherwise unremarkable. Signed by Jose Anders MD 04/20/2017 08:28 P
== END ==
LOC: M RAD 16:50
PROVIDERS: ATTEND Student in an Organized Health Care Education/Training Program
DX: R10.9 Unspecified abdominal pain (principal)

== ENCOUNTER → 2017-06-03 | Outpatient (CLI) | payer OTHER ==
[2017-06-03 07:49] LABS: BASO # 0.1 K/mm3 (0.0-0.2); EOS # 0.1 K/mm3 (0.0-0.50); EOS % 1.9 % (0.0-3.0); LARGE UNSTAINED CELL # 0.1 K/mm3 (0.0-0.4); LARGE UNSTAINED CELL % 1.8 % (0.0-4.0); LYMPH # 1.5 K/mm3 (1.5-4.5); MEAN CORPUSCULAR HEMOGLOBIN 29.7 pg (27.0-33.0); MEAN CORPUSCULAR HGB CONC 31.7 g/dl (32.0-36.5); MEAN CORPUSCULAR VOLUME 93.9 fl (80.0-96.0); MONO # 0.4 K/mm3 (0.0-0.8); MONO % 5.9 % (0.0-5.0); NEUTROPHILS # 4.1 K/mm3 (1.8-7.7); NEUTROPHILS % 65.4 % (36.0-66.0); PLATELET COUNT, AUTOMATED 299 k/mm3 (150-450); RED CELL DISTRIBUTION WIDTH 13.1 % (11.5-14.5); WHITE BLOOD COUNT 6.3 K/mm3 (4.0-10.0)
== END ==
LOC: M LAB 06:52
PROVIDERS: ATTEND Hospitalist
DX: K74.60 Unspecified cirrhosis of liver (principal); D64.9 Anemia, unspecified

== ENCOUNTER 2017-06-15 16:15 | Emergency (ER) | payer OTHER ==
[~2017-06-15] VITALS: Ht 170.2 cm; Wt 89.5 kg
[~2017-06-15 16:15] MED LIST changes: -NORCOTAB PO; -TYLE325T5 PO
[2017-06-15] MEDS ORDERED: TYLE325T5 PO (16:28)
[2017-06-15] MEDS ORDERED: NS 1,000 ML IV ONE (18:00)
[2017-06-15] MEDS ORDERED: ONDANSETRON 4MG/2ML VIAL (J2405) IV ONE (18:00)
[2017-06-15] MEDS ORDERED: MORPHINE 4 MG/ML 1ML SYRINGE IV PRN (18:00)
[2017-06-15 18:33] LABS: BASO # 0.1 K/mm3 (0.0-0.2); BASO % 0.8 % (0.0-1.0); EOS # 0.1 K/mm3 (0.0-0.50); EOS % 1.6 % (0.0-3.0); LARGE UNSTAINED CELL # 0.2 K/mm3 (0.0-0.4); LARGE UNSTAINED CELL % 2.2 % (0.0-4.0); LYMPH # 2.4 K/mm3 (1.5-4.5); LYMPH % 30.9 % (24.0-44.0); MEAN CORPUSCULAR HEMOGLOBIN 30.4 pg (27.0-33.0); MEAN CORPUSCULAR HGB CONC 33.2 g/dl (32.0-36.5); MEAN CORPUSCULAR VOLUME 91.6 fl (80.0-96.0); MONO # 0.4 K/mm3 (0.0-0.8); MONO % 5.7 % (0.0-5.0); NEUTROPHILS # 4.5 K/mm3 (1.8-7.7); NEUTROPHILS % 58.7 % (36.0-66.0); PLATELET COUNT, AUTOMATED 298 k/mm3 (150-450); RED CELL DISTRIBUTION WIDTH 13.1 % (11.5-14.5); WHITE BLOOD COUNT 7.6 K/mm3 (4.0-10.0)
--- NOTE | 2017-06-15 18:50 | REPUSA ---
CLINICAL HISTORY: Left lower quadrant pain. History of kidney stones. TECHNIQUE: Multiple axial, coronal, sagittal CT images were obtained through the abdomen and pelvis without administration of oral or IV contrast material. COMMENTS: The liver is enlarged measuring 19 cm. Calcified granuloma is present in the right hepatic lobe. Smal l hiatal hernia is seen. There are postsurgical changes noted in the epigastric region. There is no i ntra or extrahepatic biliary ductal dilatation. The spleen is normal. The gallbladder is within nor mal limits. The pancreas is of normal contour and attenuation characteristics. There is no evidence of adrenal mass. The kidneys are normal in size, shape and configuration. No renal or ureteral calculi are identified . There is no hydroureter or hydronephrosis. There is no evidence for appendicitis. There is no bowel wall thickening. No evidence for small or large bowel obstruction. There is no evidence of abdominal ascites or lymphadenopathy. There is no evidence of intrinsic or extrinsic bladder mass. There is no pelvic ascites or lymphaden opathy. Status post bilateral tubal ligation. A 2 cm right ovarian cyst is seen. The uterus and left ovary ar e unremarkable. Correlation with pelvic ultrasound. Images of the lung bases show no evidence of pleural or parenchymal mass. There are no pleural effus ions. The bony structures are free of lytic or blastic lesions. IMPRESSION: 1. Hepatomegaly. 2. Small hiatal hernia. 3. 2 cm right ovarian cyst is seen. Correlation with pelvic ultrasound. Thank you for your kind referral of this patient. We appreciate the opportunity to participate in thi s patient's care.
[2017-06-15 18:55] VITALS: BP 122/65
[2017-06-15 19:01] LABS: ANION GAP 6 MEQ/L (8-16); BLOOD UREA NITROGEN 15 MG/DL (7-18); CALCIUM LEVEL 8.9 MG/DL (8.5-10.1); CARBON DIOXIDE LEVEL 27 MEQ/L (21-32); CHLORIDE LEVEL 108 MEQ/L (98-107); CREATININE FOR GFR 0.69 MG/DL (0.55-1.02); GLOMERULAR FILTRATION RATE > 60.0 (>58); GLUCOSE, FASTING 84 MG/DL (70-105); POTASSIUM SERUM 4.4 MEQ/L (3.5-5.1); SODIUM LEVEL 141 MEQ/L (136-145)
== END 2017-06-15 19:40 | disposition home or self-care (01) ==
LOC: M ED 16:15
DX: N83.202 Unspecified ovarian cyst, left side (principal)
CPT/HCPCS: 36415; 74176; 80048; 81001; 85025; 96374; 96375; 99283; J2405

== ENCOUNTER 2017-06-27 11:37 | Emergency (ER) | payer OTHER ==
[~2017-06-27] VITALS: Ht 170.2 cm; Wt 102.7 kg
[~2017-06-27 11:37] MED LIST changes: +TYLE325T5 PO
--- NOTE | 2017-06-27 14:13 | REP ---
Clinical: Trauma. Fall. Technique: Axial noncontrast images from T11 to the mid sacrum with coronal and sagittal re-formations. Findings: Alignment and lordosis maintained. Vertebral body contours are normal. There is no evidence for acute fracture / compression injury or subluxation. Spinal canal is patent. Posterior elements and spinous processes are intact. Moderate disc bulge with endplate sclerosis and marginal spurring at the L5-S1 level is appreciated along with minimal posterior disc bulge at the L4-5 level. Impression: 1. Normal alignment and lordosis without acute fracture / compression injury or subluxation. 2. Mild to moderate multilevel degenerative disc osteophyte complexes most pronounced at the L5-S1 and L4-5 levels. Signed by Jayson Thompson MD 06/27/2017 02:03 P
[2017-06-27] MEDS ORDERED: NORCOTAB PO (14:46)
[2017-06-27 14:58] VITALS: BP 128/60
== END 2017-06-27 15:08 | disposition home or self-care (01) ==
LOC: M ED 11:37
DX: M54.5 Low back pain (principal); I10 Essential (primary) hypertension; Z98.84 Bariatric surgery status; W10.8XXA Fall (on) (from) other stairs and steps, initial encounter; Y92.099 Unspecified place in other non-institutional residence as the place of occurrence of the external cause; Y93.01 Activity, walking, marching and hiking; Y99.9 Unspecified external cause status

== ENCOUNTER → 2017-10-05 | Outpatient (REF) | payer OTHER ==
[~2017-10-05] MED LIST changes: +NORCOTAB PO
== END ==
LOC: M SFHCLERA 10:16
PROVIDERS: ATTEND Nurse Practitioner Family
DX: J02.9 Acute pharyngitis, unspecified (principal)

== ENCOUNTER → 2017-10-05 | Outpatient (CLI) | payer OTHER ==
--- NOTE | 2017-10-05 14:42 | REP ---
TWO VIEW CHEST: Comparison: 08/03/2016. There is no evidence of acute infiltrate. No pleural effusion is seen. The heart is normal in size. The mediastinal silhouette is unremarkable. The visualized osseous structures are intact. IMPRESSION: No acute pulmonary disease. Signed by Jose Antonio Hernandez MD 10/06/2017 09:15 A
== END ==
LOC: M LRY 09:53
PROVIDERS: ATTEND Nurse Practitioner Family
DX: M54.6 Pain in thoracic spine (principal)

== ENCOUNTER → 2017-11-04 | Outpatient (CLI) | payer OTHER | LOC: M LRY 18:57 | DX: S69.92XA Unspecified injury of left wrist, hand and finger(s), initial encounter (principal); W19.XXXA Unspecified fall, initial encounter; Y92.9 Unspecified place or not applicable | CPT/HCPCS: 73110 ==

== ENCOUNTER → 2017-11-22 | Outpatient (REF) | payer OTHER | LOC: M SFHCLERA 10:14 | DX: R51 Headache (principal) ==

== ENCOUNTER → 2017-12-05 | Outpatient (CLI) | payer OTHER | LOC: M RAD 06:56 | DX: K74.60 Unspecified cirrhosis of liver (principal); R93.2 Abnormal findings on diagnostic imaging of liver and biliary tract | CPT/HCPCS: 76705 ==

== ENCOUNTER → 2018-01-19 | Outpatient (REF) | payer OTHER | LOC: M SFHCPLAZ 10:22 | DX: J02.9 Acute pharyngitis, unspecified (principal) ==

== ENCOUNTER → 2018-04-13 | Outpatient (CLI) | payer OTHER ==
[2018-04-13 10:05] LABS: BASO # 0.1 10^3/uL (0.0-0.2); BASO % 0.6 % (0.0-1.0); EOS # 0.2 10^3/uL (0.0-0.50); EOS % 2.1 % (0.0-3.0); HEMATOCRIT 36.4 % (36.0-47.0); HEMOGLOBIN 12.2 g/dl (12.0-15.5); IMMATURE GRANULOCYTE % 0.2 % (0-3.0); LYMPH # 2.1 10^3/uL (1.5-4.5); LYMPH % 26.3 % (24.0-44.0); MEAN CORPUSCULAR HGB CONC 33.5 g/dl (32.0-36.5); MEAN CORPUSCULAR VOLUME 92.4 fl (80.0-96.0); MONO # 0.9 10^3/uL (0.0-0.8); MONO % 10.8 % (0.0-5.0); NEUTROPHILS # 4.8 10^3/uL (1.8-7.7); PLATELET COUNT, AUTOMATED 279 10^3/uL (150-450); RED BLOOD COUNT 3.94 10^6/uL (4.00-5.40); RED CELL DISTRIBUTION WIDTH 12.6 % (11.5-14.5)
== END ==
LOC: M LAB 09:17
DX: Z86.2 Personal history of diseases of the blood and blood-forming organs and certain disorders involving the immune mechanism (principal)
CPT/HCPCS: 85025

== ENCOUNTER → 2018-05-08 | Outpatient (CLI) | payer OTHER | LOC: M WHC 13:08 | DX: Z12.31 Encounter for screening mammogram for malignant neoplasm of breast (principal) | CPT/HCPCS: 77067 ==

== ENCOUNTER → 2018-06-02 | Outpatient (CLI) | payer OTHER | LOC: M LRY 15:42 | DX: M25.572 Pain in left ankle and joints of left foot (principal); M79.672 Pain in left foot | CPT/HCPCS: 73610 ==

== ENCOUNTER → 2018-06-09 | Outpatient (CLI) | payer OTHER ==
[2018-06-09 08:32] LABS: BASO # 0.1 10^3/uL (0.0-0.2); BASO % 0.9 % (0.0-1.0); EOS # 0.1 10^3/uL (0.0-0.50); EOS % 1.9 % (0.0-3.0); HEMATOCRIT 40.2 % (36.0-47.0); HEMOGLOBIN 13.3 g/dl (12.0-15.5); IMMATURE GRANULOCYTE % 0.3 % (0-3.0); LYMPH # 1.8 10^3/uL (1.5-4.5); LYMPH % 25.7 % (24.0-44.0); MEAN CORPUSCULAR HEMOGLOBIN 30.9 pg (27.0-33.0); MEAN CORPUSCULAR HGB CONC 33.1 g/dl (32.0-36.5); MEAN CORPUSCULAR VOLUME 93.5 fl (80.0-96.0); MONO # 0.7 10^3/uL (0.0-0.8); NEUTROPHILS # 4.3 10^3/uL (1.8-7.7); NEUTROPHILS % 61.2 % (36.0-66.0); PLATELET COUNT, AUTOMATED 328 10^3/uL (150-450); RED CELL DISTRIBUTION WIDTH 12.2 % (11.5-14.5)
[2018-06-09 08:33] LABS: HEMATOCRIT 40.2 % (36.0-47.0)
[2018-06-09 08:48] LABS: ESTIMATED AVERAGE GLUCOSE 114 MG/DL (60-110); HEMOGLOBIN A1c 5.6 %
[2018-06-09 09:20] LABS: ALBUMIN 3.4 GM/DL (3.2-5.2); ALBUMIN/GLOBULIN RATIO 0.94 (1.00-1.93); ALKALINE PHOSPHATASE 91 U/L (45-117); ALT/SGPT 20 U/L (12-78); ANION GAP 7 MEQ/L (8-16); AST/SGOT 21 U/L (7-37); BILIRUBIN,TOTAL 0.6 MG/DL (0.2-1.0); BLOOD UREA NITROGEN 8 MG/DL (7-18); CALCIUM LEVEL 9.2 MG/DL (8.5-10.1); CARBON DIOXIDE LEVEL 31 MEQ/L (21-32); CHLORIDE LEVEL 103 MEQ/L (98-107); CREATININE FOR GFR 0.69 MG/DL (0.55-1.30); FERRITIN 7 NG/ML (8-252); GLOMERULAR FILTRATION RATE > 60.0 (>58); GLUCOSE, FASTING 93 MG/DL (70-100); IRON (FE) 65 UG/DL (50-170); PERCENT SATURATION 17.4 % (13.2-45.0); POTASSIUM SERUM 4.5 MEQ/L (3.5-5.1); SODIUM LEVEL 141 MEQ/L (136-145); TOTAL IRON BINDING CAPACITY 374 UG/DL (250-450)
[2018-06-09 10:00] LABS: TOTAL 25(OH) VITAMIN D 26.8 NG/ML (30.0-100.0)
[2018-06-09 10:01] LABS: VITAMIN B12 LEVEL 1040 PG/ML
[2018-06-09 10:02] LABS: FOLATE 17.7 NG/ML
[2018-06-09 11:56] LABS: PRETREATED FOLATE FOR RBCFOL 20.6 NG/ML; RBC FOLATE 1076.1 NG/ML (280-791)
[2018-06-10 08:06] LABS: TRANSFERRIN 282 mg/dL (200-370)
== END ==
LOC: M LAB 07:43
DX: Z98.84 Bariatric surgery status (principal)
CPT/HCPCS: 82746

== ENCOUNTER 2018-08-29 14:12 | Emergency (ER) | payer OTHER ==
[2018-08-29 15:54] LABS: BASO # 0.1 10^3/uL (0.0-0.2); BASO % 0.7 % (0.0-1.0); EOS # 0.2 10^3/uL (0.0-0.50); EOS % 1.9 % (0.0-3.0); HEMATOCRIT 40.1 % (36.0-47.0); HEMOGLOBIN 13.2 g/dl (12.0-15.5); IMMATURE GRANULOCYTE % 0.2 % (0-3.0); LYMPH # 2.4 10^3/uL (1.5-4.5); MEAN CORPUSCULAR HEMOGLOBIN 31.4 pg (27.0-33.0); MEAN CORPUSCULAR HGB CONC 32.9 g/dl (32.0-36.5); MEAN CORPUSCULAR VOLUME 95.2 fl (80.0-96.0); MONO # 1.1 10^3/uL (0.0-0.8); MONO % 12.7 % (0.0-5.0); NEUTROPHILS # 4.6 10^3/uL (1.8-7.7); NEUTROPHILS % 55.5 % (36.0-66.0); PLATELET COUNT, AUTOMATED 316 10^3/uL (150-450); RED BLOOD COUNT 4.21 10^6/uL (4.00-5.40); RED CELL DISTRIBUTION WIDTH 12.7 % (11.5-14.5); WHITE BLOOD COUNT 8.3 10^3/uL (4.0-10.0)
[2018-08-29 16:05] LABS: ANION GAP 8 MEQ/L (8-16); BLOOD UREA NITROGEN 12 MG/DL (7-18); CALCIUM LEVEL 8.8 MG/DL (8.5-10.1); CARBON DIOXIDE LEVEL 26 MEQ/L (21-32); CHLORIDE LEVEL 105 MEQ/L (98-107); CPK CREATINE PHOSPHOKINASE 244 U/L (26-192); CREATININE FOR GFR 0.52 MG/DL (0.55-1.30); GLOMERULAR FILTRATION RATE > 60.0 (>58); GLUCOSE, FASTING 54 MG/DL (70-100); POTASSIUM SERUM 4.2 MEQ/L (3.5-5.1); SODIUM LEVEL 139 MEQ/L (136-145); TROPONIN I < 0.02 NG/ML (< 0.10)
[2018-08-29 16:28] LABS: BEDSIDE GLUCOSE 86 MG/DL (70-105)
[2018-08-29] MEDS: MECLIZINE 25 MG TABLET PO (16:35)
== END 2018-08-29 17:08 | disposition left against medical advice (07) ==
LOC: M ED 14:12
DX: R42 Dizziness and giddiness (principal); R51 Headache; R11.0 Nausea; E11.9 Type 2 diabetes mellitus without complications; Z98.84 Bariatric surgery status; Z87.891 Personal history of nicotine dependence; Z79.899 Other long term (current) drug therapy
CPT/HCPCS: 71046

== ENCOUNTER → 2018-10-10 | Outpatient (CLI) | payer OTHER ==
[~2018-10-10] MED LIST changes: +CITA-230 PO; +DOCU100C16 PO; +LORA-243 PO; +MULT1TAB10 PO; -PANT40TA2 PO; +PANT40TA3 PO; +SENN8.6T17 PO
--- NOTE | 2018-10-10 13:09 | REP ---
Gastric emptying nuclear scintigraphy: History: Syncope. History of gastric bypass. Technique: 1.01 mCi of technetium-99m sulfur colloid was ingested in two scrambled eggs and 6 ounces of water and sequential anterior and posterior images are acquired for an 89-minute imaging observation period. Regions of interest are drawn around what appears to be a gastric pouch to plot gastric emptying. Scintigraphic findings: Expected T1/2 is 90 minutes. 41 % emptying is observed in this patient during the 89-minute imaging observation period, for a calculated T1/2 in this patient of 112 minutes. Impression: The patient is status post gastric bypass. 41% emptying is observed from what appears to be the gastric pouch during the 89-minute imaging interval. T1 half, calculated 112 minutes. Electronically Signed by Jose Anders MD 10/10/2018 01:00 P
== END ==
LOC: M RAD 10:05
PROVIDERS: ATTEND Hospitalist
DX: R55 Syncope and collapse (principal); Z98.84 Bariatric surgery status

== ENCOUNTER → 2018-11-11 | Outpatient (CLI) | payer OTHER ==
--- NOTE | 2018-11-11 12:28 | REP ---
LUMBAR SPINE COMPLETE (FIVE VIEWS) 11/11/2018. Comparison: CT lumbar spine 06/27/2017. Clinical history: Acute right-sided low back pain with right-sided sciatica. Findings: Pedicles, spinous and transverse processes grossly intact. Sacral ala and SI joints intact. There is some facet arthropathy at L4-5 and L5-S1 but no spondylolysis or spondylolisthesis. Normal lordosis maintained. There are degenerative disc changes at L5-S1 with slight narrowing and sclerosis. No compression deformity or destructive lesions. The normal lordosis was maintained. Impression: 1. Degenerative disc and facet arthritic changes at L5-S1 without compression deformity, malalignment or significant change of vertebral bodies and disc spaces compared to CT 06/27/2017. Electronically Signed by Darrell Damian MD 11/11/2018 01:42 P
== END ==
LOC: M LRY 10:23
PROVIDERS: ATTEND Nurse Practitioner Family
DX: M54.41 Lumbago with sciatica, right side (principal)

== ENCOUNTER → 2018-12-28 | Outpatient (REF) | payer OTHER | LOC: M SFHCLERA 17:38 | PROVIDERS: ATTEND Nurse Practitioner Family | DX: J00 Acute nasopharyngitis [common cold] (principal) ==

== ENCOUNTER → 2019-05-30 | Outpatient (CLI) | payer OTHER ==
[~2019-05-30] MED LIST changes: -/HCTZ25TA PO; -CITA-230 PO; +CITA20TA7 PO; +HYDR-3644 PO; +HYDR-3715 PO; -NORCOTAB PO; -OMEP40CA2 PO; +OMEP40CA97 PO; -TOPI25CA PO; +TOPI25CA3 PO
[2019-05-30 11:21] LABS: HEMATOCRIT 40.4 % (36.0-47.0)
[2019-05-30 11:23] LABS: BASO # 0.1 10^3/uL (0.0-0.2); BASO % 1.1 % (0.0-1.0); EOS # 0.1 10^3/uL (0.0-0.50); EOS % 1.9 % (0.0-3.0); HEMATOCRIT 40.9 % (36.0-47.0); HEMOGLOBIN 13.6 g/dl (12.0-15.5); LYMPH # 1.5 10^3/uL (1.5-4.5); LYMPH % 22.5 % (24.0-44.0); MEAN CORPUSCULAR HEMOGLOBIN 32.9 pg (27.0-33.0); MEAN CORPUSCULAR HGB CONC 33.3 g/dl (32.0-36.5); MONO # 0.6 10^3/uL (0.0-0.8); MONO % 9.5 % (0.0-5.0); NEUTROPHILS # 4.2 10^3/uL (1.8-7.7); NEUTROPHILS % 64.8 % (36.0-66.0); PLATELET COUNT, AUTOMATED 273 10^3/uL (150-450); RED BLOOD COUNT 4.13 10^6/uL (4.00-5.40); WHITE BLOOD COUNT 6.5 10^3/uL (4.0-10.0)
[2019-05-30 11:41] LABS: HEMOGLOBIN A1c 5.7 %
[2019-05-30 11:45] LABS: ALBUMIN 3.6 GM/DL (3.2-5.2); ALT/SGPT 29 U/L (12-78); BILIRUBIN,TOTAL 0.7 MG/DL (0.2-1.0); BLOOD UREA NITROGEN 9 MG/DL (7-18); CALCIUM LEVEL 8.6 MG/DL (8.5-10.1); CARBON DIOXIDE LEVEL 28 MEQ/L (21-32); CHLORIDE LEVEL 105 MEQ/L (98-107); CREATININE FOR GFR 0.61 MG/DL (0.55-1.30); FERRITIN 34 NG/ML (8-252); GLOMERULAR FILTRATION RATE > 60.0 (>58); GLUCOSE, FASTING 76 MG/DL (70-100); IRON (FE) 81 UG/DL (50-170); MAGNESIUM LEVEL 2.3 MG/DL (1.8-2.4); PERCENT SATURATION 26.6 % (13.2-45.0); PHOSPHORUS LEVEL 3.3 MG/DL (2.5-4.9); POTASSIUM SERUM 4.4 MEQ/L (3.5-5.1); SODIUM LEVEL 139 MEQ/L (136-145); TOTAL IRON BINDING CAPACITY 304 UG/DL (250-450); TOTAL PROTEIN 6.8 GM/DL (6.4-8.2)
[2019-05-30 12:18] LABS: TOTAL 25(OH) VITAMIN D 40.9 NG/ML (30.0-100.0); VITAMIN B12 LEVEL > 2000 PG/ML (247-911)
== END ==
LOC: M LAB 09:58
PROVIDERS: ATTEND Surgery
DX: E66.01 Morbid (severe) obesity due to excess calories (principal)

== ENCOUNTER → 2019-05-30 | Outpatient (CLI) | payer OTHER ==
[2019-05-30 11:22] LABS: BASO # 0.1 10^3/uL (0.0-0.2); BASO % 1.1 % (0.0-1.0); EOS # 0.1 10^3/uL (0.0-0.50); HEMATOCRIT 38.9 % (36.0-47.0); HEMOGLOBIN 13.2 g/dl (12.0-15.5); LYMPH # 1.4 10^3/uL (1.5-4.5); LYMPH % 22.9 % (24.0-44.0); MEAN CORPUSCULAR HEMOGLOBIN 32.8 pg (27.0-33.0); MEAN CORPUSCULAR HGB CONC 33.9 g/dl (32.0-36.5); MEAN CORPUSCULAR VOLUME 96.8 fl (80.0-96.0); MONO # 0.6 10^3/uL (0.0-0.8); MONO % 10.1 % (0.0-5.0); NEUTROPHILS # 3.9 10^3/uL (1.8-7.7); NEUTROPHILS % 63.7 % (36.0-66.0); PLATELET COUNT, AUTOMATED 277 10^3/uL (150-450); RED BLOOD COUNT 4.02 10^6/uL (4.00-5.40); WHITE BLOOD COUNT 6.1 10^3/uL (4.0-10.0)
== END ==
LOC: M LAB 09:50
PROVIDERS: ATTEND Hospitalist
DX: Z53.9 Procedure and treatment not carried out, unspecified reason (principal); Z86.2 Personal history of diseases of the blood and blood-forming organs and certain disorders involving the immune mechanism

== ENCOUNTER → 2020-03-14 | Outpatient (REF) | payer OTHER ==
[2020-03-14 17:13] LABS: ALBUMIN 3.5 GM/DL (3.2-5.2); ALT/SGPT 27 U/L (12-78); BILIRUBIN,TOTAL 0.5 MG/DL (0.2-1.0); BLOOD UREA NITROGEN 14 MG/DL (7-18); CALCIUM LEVEL 8.6 MG/DL (8.5-10.1); CARBON DIOXIDE LEVEL 29 MEQ/L (21-32); CHLORIDE LEVEL 107 MEQ/L (98-107); CHOLESTEROL LEVEL 223 MG/DL (<200); CHOLESTEROL RISK RATIO 3.013 (<5); CREATININE FOR GFR 0.68 MG/DL (0.55-1.30); GLOMERULAR FILTRATION RATE > 60.0 (>58); GLUCOSE, FASTING 90 MG/DL (70-100); HDL CHOLESTEROL 74 MG/DL (>40); LDL CHOLESTEROL 132 MG/DL (<100); NON-HDL-C 149 MG/DL; POTASSIUM SERUM 3.9 MEQ/L (3.5-5.1); SODIUM LEVEL 140 MEQ/L (136-145); TRIGLYCERIDES LEVEL 86 MG/DL (<150)
[2020-03-14 17:32] LABS: HEMOGLOBIN A1c 5.9 %
[2020-03-14 17:39] LABS: MALB URINE SIEMENS 18.9 MG/L; MAU/CREAT RATIO 7.8 MCG/MG (0.0-30.0)
[2020-03-14 18:01] LABS: HIV 1&2 SCREEN CENTAUR NEGATIVE (NEGATIVE)
[2020-03-14 18:16] LABS: HEPATITIS B SURFACE ANTIGEN NEGATIVE (NEGATIVE)
== END ==
LOC: M SFHCPLAZ 13:58
DX: E11.9 Type 2 diabetes mellitus without complications (principal); Z11.4 Encounter for screening for human immunodeficiency virus [HIV]

== ENCOUNTER → 2020-09-08 | Outpatient (CLI) | payer OTHER ==
[~2020-09-08] MED LIST changes: +PANT40TA29 PO; -PANT40TA3 PO
== END ==
LOC: M LABSMTC 10:42
PROVIDERS: ATTEND Family Medicine
DX: Z20.828 Contact with and (suspected) exposure to other viral communicable diseases (principal)

== ENCOUNTER → 2020-10-30 | Outpatient (CLI) | payer OTHER | LOC: M LABSMTC 13:13 | PROVIDERS: ATTEND Family Medicine | DX: Z20.822 Contact with and (suspected) exposure to COVID-19 (principal) ==

== ENCOUNTER → 2021-02-05 | Outpatient (REF) | payer OTHER ==
[2021-02-05 16:32] LABS: HEPATITIS B SURFACE ANTIGEN NEGATIVE (NEGATIVE)
[2021-02-05 16:50] LABS: HEPATITIS B CORE ANTIBODY IGM NEGATIVE (NEGATIVE); HEPATITIS C VIRUS ABY INDEX < 0.0 INDEX (<0.8)
[2021-02-05 16:52] LABS: HIV 1&2 SCREEN CENTAUR NEGATIVE (NEGATIVE)
[2021-02-05 16:53] LABS: HEPATITIS A ANTIBODY IGM NEGATIVE (NEGATIVE)
[2021-02-06 18:06] LABS: HSV IgM TYPES 1&2 <0.91 Ratio (0.00-0.90); HSV TYPE II IgG SPECIFIC <0.91 index (0.00-0.90)
== END ==
LOC: M PLALAB 11:44
PROVIDERS: ATTEND Advanced Practice Midwife
DX: N76.0 Acute vaginitis (principal); Z11.3 Encounter for screening for infections with a predominantly sexual mode of transmission

== ENCOUNTER → 2021-02-05 | Outpatient (REF) | payer OTHER | LOC: M SFHCWAGY 12:45 | PROVIDERS: ATTEND Advanced Practice Midwife | DX: N76.0 Acute vaginitis (principal); Z53.8 Procedure and treatment not carried out for other reasons ==

== ENCOUNTER → 2021-02-25 | Outpatient (REF) | payer OTHER | LOC: M SFHCWAGY 16:54 | PROVIDERS: ATTEND Advanced Practice Midwife | DX: Z12.4 Encounter for screening for malignant neoplasm of cervix (principal) ==

== ENCOUNTER 2021-08-26 08:06 | Emergency (ER) | payer OTHER ==
[~2021-08-26] VITALS: Ht 167.6 cm; Wt 121.2 kg
[~2021-08-26 08:06] MED LIST changes: +OMEP40CA4 PO; -OMEP40CA97 PO
[2021-08-26] MEDS ORDERED: LEXA1TAB PO (08:16)
--- OUTSIDE RECORDS SUMMARY | 2021-08-26 08:17 | CCD ---
Author Author [facility] Organization [facility] Address Unknown Phone Unavailable Care Team Providers Care Psych Social Worker Name Role Phone ConnorChacortajohn Unavailable PROBLEMS ALLERGIES No Known Allergies ENCOUNTERS from 1975 to 2021-08-24 IMMUNIZATIONS SOCIAL HISTORY REASON FOR REFERRAL No Information VITAL SIGNS MEDICATIONS PROCEDURES No Information RESULTS No Results REASON FOR VISIT MEDICAL (GENERAL) HISTORY Goals Section Health Concerns MEDICAL EQUIPMENT No Information MENTAL STATUS FUNCTIONAL STATUS ASSESSMENTS No Information PLAN OF TREATMENT Insurance Providers
--- OUTSIDE RECORDS SUMMARY | 2021-08-26 08:17 | CCD | Continuity of Care Document ---
Author Author Elisabet XIAO P.A. Organization Unknown Address [address] [place] [address] Phone [phone] Care Team Providers Care Sales Department Supervisor Name Role Phone [facility] [place] [employer] [phone] Problems Description No Information Available Social History Type Date Description Comments Sex Unknown ETOH Use Never used alcohol Tobacco Use Start: Unknown Patient is a current smoker, smo kes every day Smoking Status Reviewed: 08/10/21 Patient is a current smoker, smokes every day Allergies and adverse reactions Description No Known Drug Allergies Medications Active Medications SIG Qnty Indications Ordering Provide r Date Ondansetron 8mg Tablets Dispers 1 tablet dissolve on tongue every 8 hours as needed for nausea/vomiting 10tabs A08.4 Mirza Castillo JR., M.D. 08/10/2021 Amoxicillin/Clavulanate Potassium 875-125mg Tablets 1 tab by mouth twice a day for 7 days 14tabs J01.90 Mirza Castillo JR., M.D. 08/10/2021 Omeprazole Unknown Vitamin B-Complex Unknown 0 000 Sertraline HCL Unknown Loratadine Unknown Escitalopram Oxalate 10mg Tablets Unknown History Medications Terbinafine HCL 250mg Tablets 1 tab by mouth every day x2 weeks 14tabs B37.9 Mirza Castillo JR., M.D. 05/03/2021 - 05/17/2021 Immunizations Description No Information Available Vital Signs Date Vital Result Comment 08/10/2021 4:10pm BP Systolic 100 mmHg BP Diastolic 70 mmHg Heart Rate 63 /min Respiratory Rate 16 /min O2 % BldC Oximetry 98 % Body Temperature 98.5 F Weight 270.00 lb Height 65 inches 5'5" BMI (Body Mass Index) 44.9 kg/m2 Pain Level 0 05/03/2021 1:15pm BP Systolic 107 mmHg BP Diastolic 71 mmHg Heart Rate 62 /min Respiratory Rate 17 /min O2 % BldC Oximetry 99 % Body Temperature 98.3 F Weight 276.00 lb Height 65 inches 5'5" BMI (Body Mass Index) 45.9 kg/m2 Pain Level 6 Results Description No Information Available Procedures Date Code Description Status 08/10/2021 73105 Office/Outpatient Established Mo d MDM 30-39 Min Completed 05/03/2021 83715 Office/Outpatient Established Lo w MDM 20-29 Min Completed Medical Devices Description No Information Available Encounters Type Date Location Provider Dx Diagnosis Office Visit 08/10/2021 12:10p Main Office Wagner Xiao P.A. A0 8.4 Viral intestinal infection, unspecified J01.90 Acute sinusitis, unspecified Z20.828 Contact w and exposure to ot h viral communicable diseases Office Visit 05/03/2021 12:40p Main Office Bushra Ramon NP B37. 9 Candidiasis, unspecified L30.4 Erythema intertrigo Assessments Date Code Description Provider 08/10/2021 A08.4 Viral intestinal infection, unsp ecified Wagner Xiao, P.A. 08/10/2021 J01.90 Acute sinusitis, unspecified Andriy Xiao, P.A. 08/10/2021 Z20.828 Contact with and (collado spected) exposure to other viral communicable diseases Wagner Xiao, P.A. 05/03/2021 B37.9 Candidiasis, unspecified Bushra Ramon NP 05/03/2021 L30.4 Erythema intertrigo Bushra alfredo NP Plan of Treatment No Information Available Functional Status Description No Information Available Mental Status Description No Information Available Referrals Description No Information Available
--- OUTSIDE RECORDS SUMMARY | 2021-08-26 08:17 | CCD | Continuity of Care Document ---
Author Author Elisabet XIAO P.A. Organization Unknown Address [address] [place] [address] Phone [phone] Care Team Providers Care Technology Adoption Manager Name Role Phone [facility] [place] [employer] [phone] Problems Description No Information Available Social History [...] Available Procedures Date Code Description Status 08/10/2021 94330 Office/Outpatient Established Mo d MDM 30-39 Min Completed 05/03/2021 20353 Office/Outpatient Established Lo w MDM 20-29 Min [...]
[2021-08-26 09:07] LABS: HEMATOCRIT 43.9 % (36.0-47.0); HEMOGLOBIN 14.4 g/dl (12.0-15.5); MEAN CORPUSCULAR HEMOGLOBIN 31.6 pg (27.0-33.0); MEAN CORPUSCULAR HGB CONC 32.8 g/dl (32.0-36.5); MEAN CORPUSCULAR VOLUME 96.5 fl (80.0-96.0); PLATELET COUNT, AUTOMATED 322 10^3/uL (150-450); RED BLOOD COUNT 4.55 10^6/uL (4.00-5.40); WHITE BLOOD COUNT 7.9 10^3/uL (4.0-10.0)
--- OUTSIDE RECORDS SUMMARY | 2021-08-26 09:33 | CCD ---
Author Author [facility] Organization [facility] Address Unknown Phone Unavailable Care Team Providers Care Neuroscientist Name Role Phone Janneth Ryan Unavailable PROBLEMS Type Condition ICD9-CM Code [id number] Code Onset Dates Condition S tatus W/U Status Risk SNOMED Code Notes Problem Depressed mood F32.9 Active confirmed 68349 9004 Problem Allergic rhinitis, unspecifi ed allergic rhinitis trigger, unspecified rhinitis seasonality J30.9 Active confirmed 22158186 Problem Tension headache G44.209 Active confirmed 39 9551303 Problem Steatohepatitis K75.81 Active confirmed 4421 09458 Problem Environmental allergies Z91.09 Active confirmed 215626636 Problem History of anemia Z86.2 Active confirmed 27 3881162 Problem Rosacea L71.9 Active confirmed 494094649 Problem Gastroesophageal reflux disease, esophagitis pre sence not specified K21.9 Active confirmed 199329486 Problem Melanocytic nevi of right upper limb, including shoulder D22.61 Active confirmed 342983117 Problem Melanocytic nevi of trunk D22.5 Active confirmed 073963355 Problem Scabies B86 Active confirmed 114733421 Problem Insomnia, unspecified type G47.00 Active confirmed 223686463 Problem Melanocytic nevi of left upper limb, including shoulder D22.62 Active confirmed 266145942 Problem Type 2 diabetes mellitus wit hout complication, without long-term current use of insulin E11.9 Active confirmed 239599359 Problem VLAD (obstructive sleep apnea) G47.33 Active confirm ed 78576984 Problem Acute right-sided low back pain with right-sided sciatica M54.41 Active confirmed 382044213 Problem Status post gastric bypass for obesity Z98.84 A ctive confirmed 034462751 Problem Seborrheic keratoses L82.1 Active confirmed 611670020 Problem Adjustment disorder with depressed mood F43.21 Active confirmed 34532480 Problem Lichen sclerosus L90.0 Active confirmed 895 934255 Problem Major depressive disorder, r emission status unspecified, unspecified whether recurrent F32.9 Active confirmed 617001876 ALLERGIES No Known Allergies ENCOUNTERS from 1975 to 2021-07-21 Encounter Location Date Provider Diagnosis [facility] [place] [address] [phone] [place] [address] Apr, Janneth Ryan Insomnia, unspecifie d type G47.00 ; Major depressive disorder, remission status unspecified, unspecified whether recurrent F32.9 ; Acute left-sided thoracic back pain M54.6 and VLAD (obstructive sleep apnea) G47.33 IMMUNIZATIONS Vaccine Route Administration Date Status Hepatitis A & B 1mL Twinrix IM Intramuscular February 05, 2016 Adm inistered Hepatitis A & B 1mL Twinrix IM Intramuscular April 24, 2015 Adm inistered Hepatitis A & B 1mL Twinrix IM Intramuscular March 27, 2015 Adm inistered Pneumococcal Adult 0.5mL Pneumovax 23 IM Intramuscular February 09, 2017 Administered Influenza 6mo & up Fluzone IM Intramuscular Sep 04, 2018 Admi nistered Influenza 6mo & up Fluzone Unknown Sep 19, 2017 Admin istered Influenza 6mo & up Fluzone IM Intramuscular Aug 09, 2016 Admi nistered Influenza 6mo & up Fluzone IM Intramuscular Sep 22, 2012 Admi nistered SOCIAL HISTORY Tobacco Use: Social History Observation Description Date Details (start date - stop date) Former Smoker Sex Assigned At : Social History Observation Description Sex Assigned At Unknown Education: Question Answer Notes Level of Education: High School Audit Question Answer Notes Total Score: 0 Interpretation: Alcohol Education Drug and Alcohol Question Answer Notes Total Score: 0 Interpretation: No problems reported Alcohol Screening: Question Answer Notes Did you have a drink containing alcohol in the past year? No Points 0 Interpretation Negative BMI Care Goal Follow-Up Question Answer Notes Above Normal BMI Follow-Up Lifestyle education regarding t Tobacco Use: Question Answer Notes Are you a: former smoker How long has it been since you last smoked? 5-10 years REASON FOR REFERRAL from 1975 to 2021-07-21 Reason vlad- nocturnal pulse oximetr y Diagnosis 1 VLAD (obstructive sleep apnea ) (G47.33) Referral Organization [facility] G[facility] Resident Referring Provider First Name Janneth Referring Provider Last Name Connor Referring Provider Specialty Internal Medicine Referred Provider PETER Ochoa Referral Priority Routine General Notes Martha Forbes 05/15/2021 9:2 2:36 AM > Referral request sent to [facility] referral faxedMartha Forbes 05/15/2021 6:21:28 PM > Referral faxed VITAL SIGNS Weight 278.6 lbs Apr, Height 65.5 in Apr, BMI 45.65 kg/m2 Apr, Heart Rate 85 /min Apr, Respiratory Rate 18 /min Apr, Temperature 97.5 degrees Fahrenheit Apr, Oximetry 100 Apr, Blood pressure systolic 110 mm Hg Apr, Blood pressure diastolic 70 mm Hg Apr, MEDICATIONS Medication SIG (Take, Route, Frequency, Duration) Notes Start Da te End Date Status Claritin 10 MG 1 tablet Orally Once a day for 30 Days Active Ramelteon 8 MG 1 tablet at bedtime as needed Orally Once a day for 30 days Apr, Active 28-0.8 MG 1 tablet Orally Once a day Active Omeprazole 40 MG TAKE ONE CAPSULE BY MOUTH TWICE A DAY for 30 Active Escitalopram Oxalate 10 MG TAKE ONE TABLET BY MOUTH EVERY DAY for 30 Active Clobetasol Prop Emollient Base 0.05 % 1 application Ex ternally once or two times weekly for 30 days Mar, Active Trazodone HCl 50 MG TAKE ONE TABLET BY MOUTH AT BEDTIME NEEDED for 30 Active Nystatin 394662 UNIT/GM 1 application Externally Twi ce a day as needed for 30 day(s) February, Active May Have - as directed may dog for emotional support Daily for 30 Days Nov, Active PROCEDURES No Information RESULTS No Results REASON FOR VISIT r/s general medical MEDICAL (GENERAL) HISTORY Type Description Date Medical History GERD- 8 yrs ago EGD nl Medical History Back pain - Medical History Hx of kidney stone and UTI's Medical History Migraine MAZA Medical History allergies Medical History Nondependent tobacco use disorder,quit 2 011 Medical History diabetes mellitus Medical History Obstructive Sleep Apnea - no ty on CPAP, refused repeat sleep study after weight loss Medical History New onset of Diabetes Medical History Vitamin D Deficiency Medical History Morbid obesity Medical History Hyperlipidemia Medical History Urinary Incontinence Medical History Allergic rhinitis Medical History Vaginal stenosis Medical History Dyspepsia and other specified disorders of function of stomach Medical History Ovarian cyst, right Medical History Candidiasis of vulva and vagina Medical History Urinary incontenence, Unspecified Medical History Other and unspecified hyperlipidemia Surgical History ,tubal ligation 2004 Surgical History endometrial balloon ablation- 20 07 Surgical History right oophorectomy (Dr Fay) 02/2013 Surgical History 2001 Surgical History Plate reconstruction, tonsils and adenoi dectomy October 28, 2014 Surgical History Gastric Bypass 01/06/2015 Surgical History appendectomy 08/05/15 Hospitalization History appendectomy 08/05/15- 5 Goals Section No Information Health Concerns No Information MEDICAL EQUIPMENT No Information MENTAL STATUS No Information FUNCTIONAL STATUS No Information ASSESSMENTS Encounter Date Diagnosis Assessment Notes Treatment Notes Treatm ent Clinical Notes Apr, Insomnia, unspecified type (ICD-10 - G47.00) I think that patient's insomnia is multifacctorial and differentials include adjustment disorder with depressed mood or new onset major depression. Another component could be that she's morbidly obese and very high risk for VLAD. She states that she's been diagnosed with VLAD and was on CPAP but lost a lot of weight and stopped using the machine. She does not have a CPAP any longer. She also recently her who came out to her as sharpe and now she's left to take care of her 2 daugthers all by herself. She's also gone through major stressors at work recently as well. She states that she has trouble falling asleep at night and when she does fall asleep she has trouble mainttaing sleep. She did score 12 on the phq 9 scale for depression. she's currently on celexa 40mg qhs. i will add trazadone 50mg qhs. rozarem ordered- pending prior auth- in the meantime i have informed patient to take trazadone with her celexa. Apr, Major depressive disorder, r emission status unspecified, unspecified whether recurrent (ICD-10 - F32.9) see under insomnia section. will add trazadone 50mg po qhs today. she can c/w celexa 40mg dose Apr, Acute left-sided thoracic back pain (ICD-10 - M5 4.6) likely musculoskeletal related. She states that she did a lot of heavy lifting from garden work and woke up this monring with a sharp pain in her left back. denies any numbness or tingling down arms or down her back. I have instructed her to do cold compresses and take tylenol or motrin for relief. If pain does not resolve and/or gets worse, to give clinic a call. Apr, VLAD (obstructive sleep apnea) (ICD-10 - G47.33) mallampati 4 and scored high on STOPBANG. morbidly obese female with thick neck cirumference and highly suspicious for VLAD. Will evaulate with nocurnal pulse ox to r/o VLAD Addendum: Patient's Nocturnal pulse ox results came back. see below for my read Nocturnal Pulse ox: Total sampling time was approximately 2 hours and 33 minutes. The patient's oxygen saturation ranged from a high of 97 % to a low of 81%. Her heart rate ranged from 105bpm to a low of 45bpm. The time spent with an oxygen saturation less than 88% was approximately 6 minutes and 6 seconds. Graphically the patient's SpO2 waveform was noted to have episodes of variability overnight with some episodic desaturation. She did also have some significant heart rate variability noted. IMPRESSION: Abnormal nocturnal oximetry study. The patient would qualify for nocturnal oxygen supplementation per Medicare guidelines. However, based on her SpO2 waveform there is suspicion for sleep disordered breathing. Would recommend more formal sleep testing and will refer to [facility] for further assessment. PLAN OF TREATMENT Medication Medication Name Sig Start Date Stop Date Claritin 10 MG 1 tablet Orally Once a day for 30 Days Trazodone HCl 50 MG TAKE ONE TABLET BY MOUTH AT BEDTIME NEEDE D for 30 Escitalopram Oxalate 10 MG TAKE ONE TABLET BY MOUTH EVERY DAY fo r 30 Omeprazole 40 MG TAKE ONE CAPSULE BY MOUTH TWICE A DAY for 30 Ramelteon 8 MG 1 tablet at bedtime as needed Orally Onc e a day for 30 days Apr, Treatment Notes Assessment Notes Clinical Notes Insomnia, unspecified type I think that patient's insomnia is multifacctorial and differentials include adjustment disorder with depressed mood or new onset major depression. Another component could be that she's morbidly obese and very high risk for VLAD. She states that she's been diagnosed with VLAD and was on CPAP but lost a lot of weight and stopped using the machine. She does not have a CPAP any longer. She also recently her who came out to her as sharpe and now she's left to take care of her 2 daugthers all by herself. She's also gone through major stressors at work recently as well. She states that she has trouble falling asleep at night and when she does fall asleep she has trouble mainttaing sleep.She did score 12 on the phq 9 scale for depression. she's currently on celexa 40mg qhs. i will add trazadone 50mg qhs. rozarem ordered- pending prior auth- in the meantime i have informed patient to take trazadone with her celexa. Major depressive disorder, remission sta tus unspecified, unspecified whether recurrent see under insomnia section. will add trazadone 50mg po qhs today. she can c/w celexa 40mg dose Acute left-sided thoracic back pain like ly musculoskeletal related. She states that she did a lot of heavy lifting from garden work and woke up this monring with a sharp pain in her left back. denies any numbness or tingling down arms or down her back. I have instructed her to do cold compresses and take tylenol or motrin for relief. If pain does not resolve and/or gets worse, to give clinic a call. VLAD (obstructive sleep apnea) mallampati 4 and scored high on STOPBANG. morbidly obese female with thick neck cirumference and highly suspicious for VLAD. Will evaulate with nocurnal pulse ox to r/o OSAAddendum: Patient's Nocturna l pulse ox results came back. see below for my readNocturnal Pulse ox: Total sampling time was approximately 2 hours and 33 minutes. The patient's oxygen saturation ranged from a high of 97 % to a low of 81%. Her heart rate ranged from 105bpm to a low of 45bpm. The time spent with an oxygen saturation less than 88% was approximately 6 minutes and 6 seconds. Graphically the patient's SpO2 waveform was noted to have episodes of variability overnight with some episodic desaturation. She did also have some significant heart rate variability noted.IMPRESSION: Abnormal nocturnal oximetry study. The patient would qualify for nocturnal oxygen supplementation per Medicare guidelines. However, based on her SpO2 waveform there is suspicion for sleep disordered breathing. Would recommend more formal sleep testing and will refer to [facility] for further assessment. Referrals Referral Date Details vlad- nocturnal pulse oximetr PETER miranda Appt Details 3 Months Reason: Provider Name:Janneth Ryan, 2021-08-21 0 9:00:00 AM, [address] [facility], , [place], [address], Insurance Providers Payer Name Payer Address Payer Phone Insured Name Patient Relati onship to Insured Coverage Start Date Coverage End Date FOR[facility] [employer] [facility] [address] [facility] [id number] IRENE CASTAÑEDA self
[2021-08-26 09:34] LABS: AMPHETAMINES LEVEL URINE NEGATIVE (NEGATIVE); BARBITURATES URINE NEGATIVE (NEGATIVE); BENZODIAZEPINES URINE NEGATIVE (NEGATIVE); CANNABINOIDS URINE NEGATIVE (NEGATIVE); COCAINE METABOLITE URINE NEGATIVE (NEGATIVE); METHADONE URINE NEGATIVE (NEGATIVE); OPIATES URINE NEGATIVE (NEGATIVE); PHENCYCLIDINE URINE NEGATIVE (NEGATIVE)
--- OUTSIDE RECORDS SUMMARY | 2021-08-26 09:34 | CCD ---
Author Author [facility] Organization [facility] Address Unknown Phone Unavailable Care Team Providers Care Sld Teacher Name Role Phone Janneth Ryan Unavailable PROBLEMS Type Condition ICD9-CM Code [id number] Code Onset Dates Condition S tatus W/U Status Risk SNOMED Code Notes Problem Depressed mood F32.9 Active confirmed 70207 9004 Problem Allergic rhinitis, unspecifi ed allergic rhinitis trigger, unspecified rhinitis seasonality J30.9 Active confirmed 02080064 Problem Tension headache G44.209 Active confirmed 39 3688687 Problem Steatohepatitis K75.81 Active confirmed 4421 73120 Problem Environmental allergies Z91.09 Active confirmed 022755924 Problem History of anemia Z86.2 Active confirmed 27 3919338 Problem Rosacea L71.9 Active confirmed 096702721 Problem Gastroesophageal reflux disease, esophagitis pre sence not specified K21.9 Active confirmed 590672707 Problem Melanocytic nevi of right upper limb, including shoulder D22.61 Active confirmed 765078450 Problem Melanocytic nevi of trunk D22.5 Active confirmed 046550531 Problem Scabies B86 Active confirmed 868615099 Problem Insomnia, unspecified type G47.00 Active confirmed 185268287 Problem Melanocytic nevi of left upper limb, including shoulder D22.62 Active confirmed 486042224 Problem Type 2 diabetes mellitus wit hout complication, without long-term current use of insulin E11.9 Active confirmed 934491851 Problem VLAD (obstructive sleep apnea) G47.33 Active confirm ed 65473291 Problem Acute right-sided low back pain with right-sided sciatica M54.41 Active confirmed 112531671 Problem Status post gastric bypass for obesity Z98.84 A ctive confirmed 547324612 Problem Seborrheic keratoses L82.1 Active confirmed 912637492 Problem Adjustment disorder with depressed mood F43.21 Active confirmed 73319108 Problem Lichen sclerosus L90.0 Active confirmed 895 359169 Problem Major depressive disorder, r emission status unspecified, unspecified whether recurrent F32.9 Active confirmed 314701710 ALLERGIES No Known Allergies ENCOUNTERS from 1975 to 2021-05-27 Encounter Location Date Provider Diagnosis [facility] [place] [address] [facility] [phone] [place] [address] May, Janneth Ryan IMMUNIZATIONS Vaccine Route Administration Date Status Hepatitis [...] Education: High School Audit Question Answer Notes Interpretation: Alcohol Education Total Score: 0 Drug and Alcohol Question Answer Notes Interpretation: No problems reported Total Score: 0 Alcohol Screening: Question Answer Notes Did you have a drink containing alcohol in the past year? No Points 0 Interpretation Negative BMI Care Goal Follow-Up Question Answer Notes Above Normal BMI Follow-Up Lifestyle education regarding t Tobacco Use: Question Answer Notes Are you a: former smoker How long has it been since you last smoked? 5-10 years REASON FOR REFERRAL No Information VITAL SIGNS No information MEDICATIONS Medication SIG (Take, Route, Frequency, Duration) Notes Start Da te End Date Status Flonase 50 MCG/ACT 1 spray in each nostril Nasally Twice a day f or 30 day(s) Sep, Not-Taking Omeprazole 40 MG 1 capsule Orally twice daily for 30 day(s) Active Sudafed 30 MG 1 tablet as needed Orally every 6 hrs for 5 day(s) Sep, Not-Taking Diflucan 200 MG 2 tablets day one. Then 1 tablet daily Orally daily for 14 Not-Taking Clobetasol Prop Emollient Base 0.05 % 1 application Ex ternally once or two times weekly for 30 days Mar, Active Amoxicillin-Pot Clavulanate 875-125 MG 1 tablet Orally every 12 hrs for 7 day(s) Oct, Not-Taking Nystatin 812151 UNIT/GM 1 application Externally Twi ce a day as needed for 30 day(s) February, Active May Have - as directed february dog for emotional support Daily for 30 Days Nov, Active Vitamin B-12 1000 MCG 1 tablet Orally Once a day for 30 days Not-Taking traZODone HCl 50 MG 1 tablet at bedtime as neede d Orally Once a day for 30 day(s) Apr, Active Macrobid 100 MG 1 capsule Orally Twice daily for 10 day(s) Jan, Not-Taking Valtrex 1 GM 2 tablet Orally Twice daily for 1 days Jan Not-Taking Sulfacetamide Sodium-Sulfur 10-5 % WASH THE AFFECTED A [place]ART[place] ON FACE EVERY EVENING External for 30 Not-Taking Triamcinolone Acetonide 0.1 % apply to affected areas on both legs Externally BID for 7 days Aug, Not-Taking Multivitamins - 1 tab Orally once daily for 30 days Not-Taking Claritin 10 MG 1 tablet Orally Once a day for 30 Days Active Soolantra 1 % 1 application Externally Once a day Not-Taking CeleXA 40 MG 1 tab Orally Once a day Active 28-0.8 MG 1 tablet Orally Once a day Active Ramelteon 8 MG 1 tablet at bedtime as needed Orally Once a day for 30 days Apr, Active PROCEDURES No Information RESULTS No Results REASON FOR VISIT No Information MEDICAL (GENERAL) HISTORY Type Description Date Medical [...] No Information FUNCTIONAL STATUS No Information ASSESSMENTS No Information PLAN OF TREATMENT Medication Medication Name Sig Start Date Stop Date traZODone HCl 50 MG 1 tablet at bedtime as neede d Orally Once a day for 30 day(s) Apr, CeleXA 40 MG 1 tab Orally Once a day Ramelteon 8 MG 1 tablet at bedtime as needed Orally Onc e a day for 30 days Apr, Insurance Providers Payer Name Payer Address Payer Phone Insured Name Patient Relati onship to Insured Coverage Start Date Coverage End Date [facility] [employer] [facility] [address] [facility] [id number] IRENE CASTAÑEDA self
--- OUTSIDE RECORDS SUMMARY | 2021-08-26 09:34 | CCD ---
Author Author [facility] Organization [facility] Address Unknown Phone Unavailable Care Team Providers Care Sales Performance Analyst Name Role Phone Maring, Campbell PA Unavailable Unavailable Maring, Campbell PA Unavailable Unavailable Maring, Campbell PA Unavailable Unavailable Maring, Campbell PA Unavailable Unavailable Maring, Campbell PA Unavailable Unavailable Maring, Campbell PA Unavailable Unavailable Maring, Campbell PA Unavailable Unavailable Maring, Campbell PA Unavailable Unavailable Maring, Campbell PA Unavailable Unavailable Maring, Campbell PA Unavailable Unavailable Maring, Campbell PA Unavailable Unavailable Maring, Campbell PA Unavailable Unavailable Maring, Campbell PA Unavailable Unavailable Maring, Campbell PA Unavailable Unavailable Maring, Campbell PA Unavailable Unavailable Maring, Campbell PA Unavailable Unavailable Bushra Ramon NP Unavailable Unavailable Ramon, Bushra FORMULA ROOM WORKER Unavailable Unavailable Ramon, Bushra FORMULA ROOM WORKER Unavailable Unavailable Ramon, Bushra FORMULA ROOM WORKER Unavailable Unavailable Ramon, Bushra FORMULA ROOM WORKER Unavailable Unavailable Ramon, Bushra FORMULA ROOM WORKER Unavailable Unavailable Ramon, Bushra FORMULA ROOM WORKER Unavailable Unavailable Ramon, Bushra FORMULA ROOM WORKER Unavailable Unavailable Ramon, Bushra FORMULA ROOM WORKER Unavailable Unavailable Ramon, Bushra FORMULA ROOM WORKER Unavailable Unavailable Rmaon, Bushra FORMULA ROOM WORKER Unavailable Unavailable Ramon, Bushra FORMULA ROOM WORKER Unavailable Unavailable Ramon, Bushra FORMULA ROOM WORKER Unavailable Unavailable LETTIERE, A DORON PA Unavailable Unavailable LETTIERE, A DORON PA Unavailable Unavailable LETTIERE, A DORON PA Unavailable Unavailable LETTIERE, A DORON PA Unavailable Unavailable LETTIERE, A DORON PA Unavailable Unavailable LETTIERE, A DORON PA Unavailable Unavailable LETTIERE, A DORON PA Unavailable Unavailable LETTIERE, A DORON PA Unavailable Unavailable LETTIERE, A DORON PA Unavailable Unavailable LETTIERE, A DORON PA Unavailable Unavailable LETTIERE, A DORON PA Unavailable Unavailable LETTIERE, A DORON PA Unavailable Unavailable LETTIERE, A DORON PA Unavailable Unavailable LETTIERE, A DORON PA Unavailable Unavailable LETTIERE, A DORON PA Unavailable Unavailable LETTIERE, A DORON PA Unavailable Unavailable LETTIERE, A DORON PA Unavailable Unavailable LETTIERE, A DORON PA Unavailable Unavailable LETTIERE, A DORON PA Unavailable Unavailable LETTIERE, A DORON PA Unavailable Unavailable LETTIERE, A DORON PA Unavailable Unavailable LETTIERE, A DORON PA Unavailable Unavailable LETTIERE, A DORON PA Unavailable Unavailable LETTIERE, A DORON PA Unavailable Unavailable LETTIERE, A DORON PA Unavailable Unavailable LETTIERE, A DORON PA Unavailable Unavailable LETTIERE, A DORON PA Unavailable Unavailable LETTIERE, A DORON PA Unavailable Unavailable LETTIERE, A DORON PA Unavailable Unavailable LETTIERE, A DORON PA Unavailable Unavailable LETTIERE, A DORON PA Unavailable Unavailable PICKERAL JR, J PAGE PA-C Unavailable Unavailable PICKERAL JR, J PAGE PA-C Unavailable Unavailable PICKERAL JR, J PAGE PA-C Unavailable Unavailable PICKERAL JR, J PAGE PA-C Unavailable Unavailable PICKERAL JR, J PAGE PA-C Unavailable Unavailable PICKERAL JR, J PAGE PA-C Unavailable Unavailable PICKERAL JR, J PAGE PA-C Unavailable Unavailable PICKERAL JR, J PAGE PA-C Unavailable Unavailable PICKERAL JR, J PAGE PA-C Unavailable Unavailable PICKERAL JR, J PAGE PA-C Unavailable Unavailable PICKERAL JR, J PAGE PA-C Unavailable Unavailable PICKERAL JR, J PAGE PA-C Unavailable Unavailable PICKERAL JR, J PAGE PA-C Unavailable Unavailable PICKERAL JR, J PAGE PA-C Unavailable Unavailable PICKERAL JR, J PAGE PA-C Unavailable Unavailable PICKERAL JR, J PAGE PA-C Unavailable Unavailable PICKERAL JR, J PAGE PA-C Unavailable Unavailable PICKERAL JR, J PAGE PA-C Unavailable Unavailable PICKERAL JR, J PAGE PA-C Unavailable Unavailable PICKERAL JR, J PAGE PA-C Unavailable Unavailable PICKERAL JR, J PAGE PA-C Unavailable Unavailable PICKERAL JR, J PAGE PA-C Unavailable Unavailable PICKERAL JR, J PAGE PA-C Unavailable Unavailable PICKERAL JR, J PAGE PA-C Unavailable Unavailable PICKERAL JR, J PAGE PA-C Unavailable Unavailable PICKERAL JR, J PAGE PA-C Unavailable Unavailable PICKERAL JR, J PAGE PA-C Unavailable Unavailable NINOSKA, CHARLETTE PA Unavailable Unavailable NINOSKA, CHARLETTE PA Unavailable Unavailable NINOSKA, CHARLETTE PA Unavailable Unavailable NINOSKA, CHARLETTE PA Unavailable Unavailable NINOSKA, CHARLETTE PA Unavailable Unavailable NINOSKA, CHARLETTE PA Unavailable Unavailable NINOSKA, CHARLETTE PA Unavailable Unavailable NINOSKA, CHARLETTE PA Unavailable Unavailable NINOSKA, CHARLETTE PA Unavailable Unavailable NINOSKA, CHARLETTE PA Unavailable Unavailable NINOSKA, CHARLETTE PA Unavailable Unavailable NINOSKA, CHARLETTE PA Unavailable Unavailable NINOSKA, CHARLETTE PA Unavailable Unavailable NINOSKA, CHARLETTE PA Unavailable Unavailable NINOSKA, CHARLETTE PA Unavailable Unavailable NINOSKA, CHARLETTE PA Unavailable Unavailable NINOSKA, CHARLETTE PA Unavailable Unavailable NINOSKA, CHARLETTE PA Unavailable Unavailable NINOSKA, CHARLETTE PA Unavailable Unavailable NINOSKA, CHARLETTE PA Unavailable Unavailable NINOSKA, CHARLETTE PA Unavailable Unavailable NINOSKA, CHARLETTE PA Unavailable Unavailable NINOSKA, CHARLETTE PA Unavailable Unavailable NINOSKA, CHARLETTE PA Unavailable Unavailable NINOSKA, CHARLETTE PA Unavailable Unavailable NINOSKA, CHARLETTE PA Unavailable Unavailable NINOSKA, CHARLETTE PA Unavailable Unavailable NINOSKA, CHARLETTE PA Unavailable Unavailable NINOSKA, CHARLETTE PA Unavailable Unavailable NINOSKA, CHARLETTE PA Unavailable Unavailable NINOSKA, CHARLETTE PA Unavailable Unavailable NINOSKA, CHARLETTE PA Unavailable Unavailable NINOSKA, CHARLETTE PA Unavailable Unavailable NINOSKA, CHARLETTE PA Unavailable Unavailable NINOSKA, CHARLETTE PA Unavailable Unavailable NINOSKA, CHARLETTE PA Unavailable Unavailable Re-disclosure Warning The records that you are about to access may contain information from federally-assisted alcohol or drug abuse programs. If such information is present, then the following federally mandated warning applies: This information has been disclosed to you from records protected by federal confidentiality rules (42 CFR part 2). The federal rules prohibit you from making any further disclosure of this information unless further disclosure is expressly permitted by the written consent of the person to whom it pertains or as otherwise permitted by 42 CFR part 2. A general authorization for the release of medical or other information is NOT sufficient for this purpose. The Federal rules restrict any use of the information to criminally investigate or prosecute any alcohol or drug abuse patient.The records that you are about to access may contain highly sensitive health information, the redisclosure of which is protected by Article 27-F of the [facility] Public Health law. If you continue you may have access to information: Regarding HIV / AIDS; Provided by facilities licensed or operated by the [facility] Office of Mental Health; or Provided by the [facility] Office for People With Developmental Disabilities. If such information is present, then the following [facility] mandated warning applies: This information has been disclosed to you from confidential records which are protected by state law. State law prohibits you from making any further disclosure of this information without the specific written consent of the person to whom it pertains, or as otherwise permitted by law. Any unauthorized further disclosure in violation of state law may result in a fine or long-term sentence or both. A general authorization for the release of medical or other information is NOT sufficient authorization for further disc losure. Family History Family Member Name Family Member Gender Family Member Status Date o f Status Description Data Source(s) Unknown Unknown Problem [facility] Unknown [facility] Unknown Unknown Problem [facility] Encounters Encounter Providers Location Date Indications Data Source(s ) Unknown [address] [facility] [address] 08/21/2021 12:00:00 AM EDT eCW1 ([facility]) Outpatient 08/20/2021 08:01:59 AM EDT - 021 08:12:20 AM EDT Docu[facility] ([facility]) Outpatient Attender: CHARLETTE renteria 08/10/2021 12:10:00 PM EDT [facility] ([facility] 07/09/2021 06:04:12 PM EDT - 021 07:10:49 PM EDT [facility] ([facility]) Outpatient Attender: Campbell DELA CRUZ 07/07/20 08:17:10 AM EDT - 07/07/2021 09:20:44 AM EDT [facility] ([facility] ) [place] [address] [facility] [address] 06/08/2021 12:00:00 AM EDT eCW1 ([facility]) Outpatient 06/03/2021 09:52:40 AM EDT - 021 10:15:51 AM EDT [facility] ([facility]) Unknown [address] [facility] [address] 06/03/2021 12:00:00 AM EDT eCW1 ([facility]) [place] [address] [facility] [place] [address] 05/27/2021 12:00:00 AM EDT eCW1 ([facility]) [place] [address] [facility] [place] [address] 05/27/2021 12:00:00 AM EDT eCW1 ([facility]) Unknown [address] [facility] [address] 05/15/2021 12:00:00 AM EDT eCW1 ([facility]) Outpatient [address] [facility] [address] 05/14/2021 12:00:00 AM EDT eCW1 ([facility]) Outpatient Attender: Bushra chang 05/03/2021 12:40:00 PM EDT MED[facility] ([facility]) [place] [address] [facility] [address] 04/16/2021 12:00:00 AM EDT eCW1 ([facility]) Unknown [address] [facility] [address] 04/08/2021 12:00:00 AM EDT eCW1 ([facility]) Outpatient [address] [facility] [address] 02/25/2021 12:00:00 AM EDT eCW1 ([facility]) Unknown [address] [facility] [address] 02/10/2021 12:00:00 AM EDT eCW1 ([facility]) Unknown [address] [facility] [address] 02/10/2021 12:00:00 AM EDT eCW1 ([facility]) Unknown [address] [facility] [address] 02/10/2021 12:00:00 AM EDT eCW1 ([facility]) Outpatient [address] [facility] [address] 02/05/2021 12:00:00 AM EDT eCW1 ([facility]) Unknown [address] [facility] [address] 01/28/2021 12:00:00 AM EDT eCW1 ([facility]) [place] [address] [facility] [address] 01/26/2021 12:00:00 AM EDT eCW1 ([facility]) Outpatient Attender: PAGE renteria 01/24/2021 03:50:00 PM EDT MED[facility] ([facility]) [place] [address] [facility] [address] 01/06/2021 12:00:00 AM EDT eCW1 ([facility]) Outpatient Attender: CHARLETTE Don ry 01/03/2021 02:05:00 PM EST [facility] [place] [address] [facility] [address] 12/22/2020 12:00:00 AM EST eCW1 ([facility] [place]patient [address] [facility] [address] 11/04/2020 12:00:00 AM EST eCW1 ([facility]) Unknown [address] [facility] [address] 11/03/2020 12:00:00 AM EST eCW1 ([facility]) Outpatient Attender: DORON Kay jose 10/30/2020 07:25:00 AM EST MED[facility] ([facility]) Outpatient Attender: Bushra chang 10/27/2020 03:35:00 PM EST MED[facility] ([facility] Outpatient [facility] 06/26/2020 05:01:02 PM EDT [facility] Immunizations Vaccine Date Status Description Data Source(s) COVID-19 VACCINE Moderna 12/25/2020 12:00:00 AM EST completed [facility] Vaccine Series Complete: YESThis Data wa s Submitted to [facility] Via [facility]. COVID-19 VACCINE Moderna 11/27/2020 12:00:00 AM EST completed [facility] Vaccine Series Complete: NOThis Data was Submitted to [facility] Via [employer]. Medications Medication Brand Name Start Date Product Form Dose Route Admi nistrative Instructions Pharmacy Instructions Status Indications Reaction Description Data Source(s) Amoxicillin 875 MG / Clavulanate 125 MG Oral Tablet 87 5-125 mg AMOXICILLIN/POTASSIUM CLAV 08/10/2021 12:00:00 AM EDT tablet 14 TAKE ONE TABLET BY MOUTH TWICE A DAY FOR 7 DAYS TAKE ONE TABLET BY MOUTH TWICE A DAY FOR 7 DAYS SOLD: 08/10/2021 [facility] Ondansetron 8 MG Disintegrating Oral Tablet Ondansetron 08/10/2021 12:00:00 AM EDT active MEDENT ([facility]) Amoxicillin 875 MG / Clavulanate 125 MG Oral Tablet Am oxicillin/Clavulanate Potassium 08/10/2021 12:00:00 AM EDT ORAL active MEDENT ([facility]) 8 mg 08/10/2021 12:00:00 AM EDT tablet,disintegrating [address] ONE TABLET UNDER THE TONGUE EVERY 8 HOURS NEEDED FOR NAUSEA / VOMITING PLACE ONE TABLET UNDER THE TONGUE EVERY 8 HOURS NEEDED FOR NAUSEA / VOMITING SOLD: 08/10/2021 [facility] Escitalopram 10 MG Oral Tablet ESCITALOPRAM OXALATE 08/08/2021 1 2:00:00 AM EDT tablet 30 TAKE ONE TABLET BY MOUTH EVERY D AY TAKE ONE TABLET BY MOUTH EVERY DAY SOLD: 08/10/2021 [facility] 40 mg 07/09/2021 12:00:00 AM EDT capsule,delayed release (DR/EC) 60 TAKE ONE CAPSULE BY MOUTH TWICE A DAY TAKE ONE CAPSULE BY MOUTH TWICE A DAY SOLD: 07/13/2021 [facility] 40 mg 07/09/2021 12:00:00 AM EDT capsule,delayed release (DR/EC) 60 TAKE ONE CAPSULE BY MOUTH TWICE A DAY TAKE ONE CAPSULE BY MOUTH TWICE A DAY SOLD: 08/10/2021 [facility] Escitalopram 10 MG Oral Tablet ESCITALOPRAM OXALATE 07/09/2021 1 2:00:00 AM EDT tablet 30 TAKE ONE TABLET BY MOUTH EVERY D AY TAKE ONE TABLET BY MOUTH EVERY DAY SOLD: 07/13/2021 [facility] NITROFURANTOIN, MACROCRYSTALS 25 MG / Ni trofurantoin, Monohydrate 75 MG Oral Capsule 100 mg NITROFURANTOIN MONOHYD/M-CRYST 07/07/2021 12:00:00 AM EDT ca psule 14 TAKE ONE CAPSULE BY MOUTH TWICE A DAY FOR 7 DAYS TAKE ONE CAPSULE BY MOUTH TWICE A DAY FOR 7 DAYS SOLD: 07/07/2021 [facility] 200 mg 07/07/2021 12:00:00 AM EDT tablet 6 TAKE ONE TABLET BY MOUTH THREE TIMES A DAY FOR 2 DAYS TAKE ONE TABLET BY MOUTH THREE TIMES A DAY FOR 2 DAYS SOLD: 07/07/2021 [facility] Citalopram 40 MG Oral Tablet CITALOPRAM HYDROBROMIDE 06/21/2021 12:00:00 AM EDT tablet 30 TAKE ONE TABLET BY MOUTH EVERY D AY TAKE ONE TABLET BY MOUTH EVERY DAY SOLD: 06/27/2021 [facility] 10 mg 06/21/2021 12:00:00 AM EDT tablet 30 TAKE ONE TABLET BY MOUTH EVERY DAY TAKE ONE TABLET BY MOUTH EVERY DAY SOLD: 06/27/2021 [facility] Escitalopram 10 MG Oral Tablet ESCITALOPRAM OXALATE 06/13/2021 1 2:00:00 AM EDT tablet 30 TAKE ONE TABLET BY MOUTH EVERY D AY TAKE ONE TABLET BY MOUTH EVERY DAY SOLD: 06/13/2021 [facility] 50 mg 06/10/2021 12:00:00 AM EDT tablet 30 TAKE ONE TABLET BY MOUTH AT BEDTIME NEEDED TAKE ONE TABLET BY MOUTH AT BEDTIME NEEDED SOLD: [facility] 50 mg 06/10/2021 12:00:00 AM EDT tablet 30 TAKE ONE TABLET BY MOUTH AT BEDTIME NEEDED TAKE ONE TABLET BY MOUTH AT BEDTIME NEEDED SOLD: [facility] 50 mg 06/10/2021 12:00:00 AM EDT tablet 30 TAKE ONE TABLET BY MOUTH AT BEDTIME NEEDED TAKE ONE TABLET BY MOUTH AT BEDTIME NEEDED SOLD: [facility] ramelteon 8 MG Oral Tablet Ramelteon 8 MG Ramelteon 8 MG 05/14/2021 12:00:00 AM EDT 1.0 {tablet_at_bedtime_as_needed} active Ramelteon 8 MG eCW1 ([facility]) ramelteon 8 MG Oral Tablet Ramelteon 8 MG Ramelteon 8 MG 05/14/2021 12:00:00 AM EDT 1.0 {tablet_at_bedtime_as_needed} active Ramelteon 8 MG eCW1 ([facility]) Trazodone Hydrochloride 50 MG Oral Tablet traZODone HC l 50 MG traZODone HCl 50 MG 05/14/2021 12:00:00 AM EDT 1.0 {tablet_at_bedtime_as_needed} active traZODone HCl 50 MG eCW1 ([facility]) Trazodone Hydrochloride 50 MG Oral Tablet traZODone HC l 50 MG traZODone HCl 50 MG 05/14/2021 12:00:00 AM EDT 1.0 {tablet_at_bedtime_as_needed} active traZODone HCl 50 MG eCW1 ([facility]) Trazodone Hydrochloride 50 MG Oral Tablet traZODone HC l 50 MG traZODone HCl 50 MG 05/14/2021 12:00:00 AM EDT 1.0 {tablet_at_bedtime_as_needed} active traZODone HCl 50 MG eCW1 ([facility]) ramelteon 8 MG Oral Tablet Ramelteon 8 MG Ramelteon 8 MG 05/14/2021 12:00:00 AM EDT 1.0 {tablet_at_bedtime_as_needed} active Ramelteon 8 MG eCW1 ([facility]) ramelteon 8 MG Oral Tablet Ramelteon 8 MG Ramelteon 8 MG 05/14/2021 12:00:00 AM EDT 1.0 {tablet_at_bedtime_as_needed} active eCW1 ([facility]) ramelteon 8 MG Oral Tablet Ramelteon 8 MG Ramelteon 8 MG 05/14/2021 12:00:00 AM EDT 1.0 {tablet_at_bedtime_as_needed} active Ramelteon 8 MG eCW1 ([facility]) Escitalopram 10 MG Oral Tablet ESCITALOPRAM OXALATE 05/14/2021 1 2:00:00 AM EDT tablet 30 TAKE ONE TABLET BY MOUTH EVERY D AY TAKE ONE TABLET BY MOUTH EVERY DAY SOLD: 05/14/2021 [facility] ramelteon 8 MG Oral Tablet Ramelteon 8 MG Ramelteon 8 MG 05/14/2021 12:00:00 AM EDT 1.0 {tablet_at_bedtime_as_needed} active Ramelteon 8 MG eCW1 ([facility]) Trazodone Hydrochloride 50 MG Oral Tablet traZODone HC l 50 MG traZODone HCl 50 MG 05/14/2021 12:00:00 AM EDT 1.0 {tablet_at_bedtime_as_needed} active traZODone HCl 50 MG eCW1 ([facility]) Trazodone Hydrochloride 50 MG Oral Tablet traZODone HC l 50 MG traZODone HCl 50 MG 05/14/2021 12:00:00 AM EDT 1.0 {tablet_at_bedtime_as_needed} active traZODone HCl 50 MG eCW1 ([facility]) ramelteon 8 MG Oral Tablet Ramelteon 8 MG Ramelteon 8 MG 05/14/2021 12:00:00 AM EDT 1.0 {tablet_at_bedtime_as_needed} active Ramelteon 8 MG eCW1 ([facility]) 50 mg 05/14/2021 12:00:00 AM EDT tablet 30 TAKE ONE TABLET BY MOUTH AT BEDTIME NEEDED TAKE ONE TABLET BY MOUTH AT BEDTIME NEEDED SOLD: [facility] terbinafine 250 MG Oral Tablet Terbinafine HCL 05/03/2021 12:00:00 AM EDT ORAL completed MEDENT ([facility]) 250 mg 05/03/2021 12:00:00 AM EDT tablet 14 TAKE ONE TABLET BY MOUTH EVERY DAY FOR 2 WEEKS TAKE ONE TABLET BY MOUTH EVERY DAY FOR 2 WEEKS SOLD: [facility] Emollient Clobetasol Propionate 0.5 MG/ML Topical Crea m 0.05 % CLOBETASOL PROPIONATE/EMOLL 04/17/2021 12:00:00 AM EDT cream 15 APPLY TO AFFECTED AREA(S) ONCE OR TWICE WEEKLY APPLY TO AFFECTED AREA(S) ONCE OR TWICE WEEKLY SOLD: 06/27/2021 [facility] Emollient Clobetasol Propionate 0.5 MG/ML Topical Crea m 0.05 % CLOBETASOL PROPIONATE/EMOLL 04/17/2021 12:00:00 AM EDT cream 15 APPLY TO AFFECTED AREA(S) ONCE OR TWICE WEEKLY APPLY TO AFFECTED AREA(S) ONCE OR TWICE WEEKLY SOLD: 06/02/2021 [facility] Emollient Clobetasol Propionate 0.5 MG/ML Topical Crea m 0.05 % CLOBETASOL PROPIONATE/EMOLL 04/17/2021 12:00:00 AM EDT cream 15 APPLY TO AFFECTED AREA(S) ONCE OR TWICE WEEKLY APPLY TO AFFECTED AREA(S) ONCE OR TWICE WEEKLY SOLD: 04/19/2021 [facility] Emollient Clobetasol Propionate 0.5 MG/ML Topical Crea m 0.05 % CLOBETASOL PROPIONATE/EMOLL 04/17/2021 12:00:00 AM EDT cream 15 APPLY TO AFFECTED AREA(S) ONCE OR TWICE WEEKLY APPLY TO AFFECTED AREA(S) ONCE OR TWICE WEEKLY SOLD: 05/14/2021 [facility] Clobetasol Prop Emollient Base 0.05 % Clobetasol Prop Emolli ent Base 0.05 % 04/16/2021 12:00:00 AM EDT 1.0 {application} act salo Clobetasol Prop Emollient Base 0.05 % eCW1 ([facility]) Clobetasol Prop Emollient Base 0.05 % Clobetasol Prop Emolli ent Base 0.05 % 04/16/2021 12:00:00 AM EDT 1.0 {application} act salo Clobetasol Prop Emollient Base 0.05 % eCW1 ([facility]) Clobetasol Prop Emollient Base 0.05 % Clobetasol Prop Emolli ent Base 0.05 % 04/16/2021 12:00:00 AM EDT 1.0 {application} act salo Clobetasol Prop Emollient Base 0.05 % eCW1 ([facility]) Clobetasol Prop Emollient Base 0.05 % Clobetasol Prop Emolli ent Base 0.05 % 04/16/2021 12:00:00 AM EDT 1.0 {application} act salo Clobetasol Prop Emollient Base 0.05 % eCW1 ([facility]) Clobetasol Prop Emollient Base 0.05 % Clobetasol Prop Emolli ent Base 0.05 % 04/16/2021 12:00:00 AM EDT 1.0 {application} active eCW1 ([facility]) Clobetasol Prop Emollient Base 0.05 % Clobetasol Prop Emolli ent Base 0.05 % 04/16/2021 12:00:00 AM EDT 1.0 {application} act salo Clobetasol Prop Emollient Base 0.05 % eCW1 ([facility]) Clobetasol Prop Emollient Base 0.05 % Clobetasol Prop Emolli ent Base 0.05 % 04/16/2021 12:00:00 AM EDT 1.0 {application} act salo Clobetasol Prop Emollient Base 0.05 % eCW1 ([facility]) Clobetasol Prop Emollient Base 0.05 % Clobetasol Prop Emolli ent Base 0.05 % 04/16/2021 12:00:00 AM EDT 1.0 {application} act salo Clobetasol Prop Emollient Base 0.05 % eCW1 ([facility]) 200 mg 03/25/2021 12:00:00 AM EDT tablet 15 TAKE 2 TABLETS BY MOUTH DAY 1 THEN TAKE 1 ONCE DAILY TAKE 2 TABLETS BY MOUTH DAY 1 THEN TAKE 1 ONCE DAILY SOLD: 03/28/2021 [facility] Nystatin 100 UNT/MG Topical Powder 100,000 unit/gram [place]STAT[place] N 02/26/2021 12:00:00 AM EDT powder 15 APPLY TO AFFECTED AREA(S) TWO TIMES A DAY NEEDED APPLY TO AFFECTED AREA(S) TWO TIMES A DAY NEEDED SOLD: 06/02/2021 [facility] Nystatin 100 UNT/MG Topical Powder 100,000 unit/gram [place]STATI N 02/26/2021 12:00:00 AM EDT powder 15 APPLY TO AFFECTED AREA(S) TWO TIMES A DAY NEEDED APPLY TO AFFECTED AREA(S) TWO TIMES A DAY NEEDED SOLD: 02/27/2021 [facility] 200 mg 02/26/2021 12:00:00 AM EDT tablet 15 TAKE 2 TABLET BY MOUTH ON DAY 1 THEN TAKE 1 ONCE DAILY TAKE 2 TABLET BY MOUTH ON DAY 1 THEN TAKE 1 ONCE DAILY SOLD: 02/27/2021 [facility] Nystatin 100 UNT/MG Topical Powder 100,000 unit/gram [place]STATI N 02/26/2021 12:00:00 AM EDT powder 15 APPLY TO AFFECTED AREA(S) TWO TIMES A DAY NEEDED APPLY TO AFFECTED AREA(S) TWO TIMES A DAY NEEDED SOLD: 07/07/2021 [facility] Nystatin 100 UNT/MG Topical Powder 100,000 unit/gram [place]STATI N 02/26/2021 12:00:00 AM EDT powder 15 APPLY TO AFFECTED AREA(S) TWO TIMES A DAY NEEDED APPLY TO AFFECTED AREA(S) TWO TIMES A DAY NEEDED SOLD: 04/30/2021 [facility] 200 mg 02/26/2021 12:00:00 AM EDT tablet 15 TAKE 2 TABLET BY MOUTH ON DAY 1 THEN TAKE 1 ONCE DAILY TAKE 2 TABLET BY MOUTH ON DAY 1 THEN TAKE 1 ONCE DAILY SOLD: 03/14/2021 [facility] Nystatin 100 UNT/MG Topical Powder 100,000 unit/gram [place]STATI N 02/26/2021 12:00:00 AM EDT powder 15 APPLY TO AFFECTED AREA(S) TWO TIMES A DAY NEEDED APPLY TO AFFECTED AREA(S) TWO TIMES A DAY NEEDED SOLD: 03/24/2021 [facility] Nystatin 100 UNT/MG Topical Powder 100,000 unit/gram [place]STATI N 02/26/2021 12:00:00 AM EDT powder 15 APPLY TO AFFECTED AREA(S) TWO TIMES A DAY NEEDED APPLY TO AFFECTED AREA(S) TWO TIMES A DAY NEEDED SOLD: 08/10/2021 [facility] Nystatin 100 UNT/MG Topical Powder Nystatin 353241 UNI T/GM Nystatin 290685 UNIT/GM 02/25/2021 12:00:00 AM EDT 1.0 {application} active Nystatin 043241 UNIT/GM eCW1 ([facility]) Nystatin 100 UNT/MG Topical Powder Nystatin 661943 UNI T/GM Nystatin 209678 UNIT/GM 02/25/2021 12:00:00 AM EDT 1.0 {application} active Nystatin 785384 UNIT/GM eCW1 ([facility]) Nystatin 100 UNT/MG Topical Powder Nystatin 022025 UNI T/GM Nystatin 688814 UNIT/GM 02/25/2021 12:00:00 AM EDT 1.0 {application} active Nystatin 563872 UNIT/GM eCW1 ([facility]) Nystatin 100 UNT/MG Topical Powder Nystatin 480547 UNI T/GM Nystatin 400545 UNIT/GM 02/25/2021 12:00:00 AM EDT 1.0 {application} active Nystatin 195509 UNIT/GM eCW1 ([facility]) Nystatin 100 UNT/MG Topical Powder Nystatin 342315 UNI T/GM Nystatin 434920 UNIT/GM 02/25/2021 12:00:00 AM EDT 1.0 {application} active Nystatin 951246 UNIT/GM eCW1 ([facility]) Nystatin 100 UNT/MG Topical Powder Nystatin 579865 UNI T/GM Nystatin 339246 UNIT/GM 02/25/2021 12:00:00 AM EDT 1.0 {application} act salo eCW1 ([facility]) Nystatin 100 UNT/MG Topical Powder Nystatin 156532 UNI T/GM Nystatin 412050 UNIT/GM 02/25/2021 12:00:00 AM EDT 1.0 {application} active Nystatin 147635 UNIT/GM eCW1 ([facility]) Nystatin 100 UNT/MG Topical Powder Nystatin 888468 UNI T/GM Nystatin 247674 UNIT/GM 02/25/2021 12:00:00 AM EDT 1.0 {application} active Nystatin 168262 UNIT/GM eCW1 ([facility]) Nystatin 100 UNT/MG Topical Powder Nystatin 776540 UNI T/GM Nystatin 171077 UNIT/GM 02/25/2021 12:00:00 AM EDT 1.0 {application} active Nystatin 112574 UNIT/GM eCW1 ([facility]) Fluconazole 200 MG Oral Tablet [Diflucan] Diflucan 200 MG Di flucan 200 MG 02/25/2021 12:00:00 AM EDT active Diflucan 200 MG eCW1 ([facility]) Nystatin 100 UNT/MG Topical Powder Nystatin 342512 UNI T/GM Nystatin 465354 UNIT/GM 02/25/2021 12:00:00 AM EDT 1.0 {application} active Nystatin 375675 UNIT/GM eCW1 ([facility]) valacyclovir 1000 MG Oral Tablet [Valtrex] Valtrex 1 GM Valt jo 1 GM 02/10/2021 12:00:00 AM EDT 2.0 {tablet} active Va ltrex 1 GM eCW1 ([facility]) NITROFURANTOIN, MACROCRYSTALS 25 MG / Ni trofurantoin, Monohydrate 75 MG Oral Capsule [Macrobid] Macrobid 100 MG Macrobid 100 MG 02/10/2021 12:00:00 AM EDT 1.0 {capsule} suspended Macrobid 100 MG eCW1 ([facility]) valacyclovir 1000 MG Oral Tablet [Valtrex] Valtrex 1 GM Valt jo 1 GM 02/10/2021 12:00:00 AM EDT 2.0 {tablet} active Va ltrex 1 GM eCW1 ([facility]) valacyclovir 1000 MG Oral Tablet VALACYCLOVIR HCL 02/10/2021 12: 00:00 AM EDT tablet 4 TAKE TWO TABLETS BY MOUTH TWICE A DAY TAKE TWO TABLETS BY MOUTH TWICE A DAY SOLD: 02/10/2021 [facility] NITROFURANTOIN, MACROCRYSTALS 25 MG / Ni trofurantoin, Monohydrate 75 MG Oral Capsule [Macrobid] Macrobid 100 MG Macrobid 100 MG 02/10/2021 12:00:00 AM EDT 1.0 {capsule} suspended Macrobid 100 MG eCW1 ([facility]) valacyclovir 1000 MG Oral Tablet [Valtrex] Valtrex 1 GM Valt jo 1 GM 02/10/2021 12:00:00 AM EDT 2.0 {tablet} suspended Valtrex 1 GM eCW1 ([facility]) valacyclovir 1000 MG Oral Tablet [Valtrex] Valtrex 1 GM Valt jo 1 GM 02/10/2021 12:00:00 AM EDT 2.0 {tablet} active Va ltrex 1 GM eCW1 ([facility]) valacyclovir 1000 MG Oral Tablet [Valtrex] Valtrex 1 GM Valt jo 1 GM 02/10/2021 12:00:00 AM EDT 2.0 {tablet} suspended Valtrex 1 GM eCW1 ([facility]) valacyclovir 1000 MG Oral Tablet [Valtrex] Valtrex 1 GM Valt jo 1 GM 02/10/2021 12:00:00 AM EDT 2.0 {tablet} active Va ltrex 1 GM eCW1 ([facility]) valacyclovir 1000 MG Oral Tablet [Valtrex] Valtrex 1 GM Valt jo 1 GM 02/10/2021 12:00:00 AM EDT 2.0 {tablet} active Va ltrex 1 GM eCW1 ([facility]) valacyclovir 1000 MG Oral Tablet [Valtrex] Valtrex 1 GM Valt jo 1 GM 02/10/2021 12:00:00 AM EDT 2.0 {tablet} active Va ltrex 1 GM eCW1 ([facility]) NITROFURANTOIN, MACROCRYSTALS 25 MG / Ni trofurantoin, Monohydrate 75 MG Oral Capsule [Macrobid] Macrobid 100 MG Macrobid 100 MG 02/10/2021 12:00:00 AM EDT 1.0 {capsule} suspended Macrobid 100 MG eCW1 ([facility]) NITROFURANTOIN, MACROCRYSTALS 25 MG / Ni trofurantoin, Monohydrate 75 MG Oral Capsule [Macrobid] Macrobid 100 MG Macrobid 100 MG 02/10/2021 12:00:00 AM EDT 1.0 {capsule} suspended Macrobid 100 MG eCW1 ([facility]) NITROFURANTOIN, MACROCRYSTALS 25 MG / Ni trofurantoin, Monohydrate 75 MG Oral Capsule [Macrobid] Macrobid 100 MG Macrobid 100 MG 02/10/2021 12:00:00 AM EDT 1.0 {capsule} suspended Macrobid 100 MG eCW1 ([facility]) NITROFURANTOIN, MACROCRYSTALS 25 MG / Ni trofurantoin, Monohydrate 75 MG Oral Capsule [Macrobid] Macrobid 100 MG Macrobid 100 MG 02/10/2021 12:00:00 AM EDT 1.0 {capsule} active Macrobid 100 MG eC W1 ([facility]) NITROFURANTOIN, MACROCRYSTALS 25 MG / Ni trofurantoin, Monohydrate 75 MG Oral Capsule 100 mg NITROFURANTOIN MONOHYD/M-CRYST 02/10/2021 12:00:00 AM EDT ca psule 20 TAKE ONE CAPSULE BY MOUTH TWICE A DAY FOR 10 DAYS TAKE ONE CAPSULE BY MOUTH TWICE A DAY FOR 10 DAYS SOLD: 02/10/2021 [facility] NITROFURANTOIN, MACROCRYSTALS 25 MG / Ni trofurantoin, Monohydrate 75 MG Oral Capsule [Macrobid] Macrobid 100 MG Macrobid 100 MG 02/10/2021 12:00:00 AM EDT 1.0 {capsule} suspended Macrobid 100 MG eCW1 ([facility]) 0.05 % 02/10/2021 12:00:00 AM EDT ointment 15 USE APPLICTION TWO NIGHTS WEEKLY FOR 1 MONTH THEN 1 NIGHT WEEKLY EXTERNALLY FOR 30 DAYS USE APPLICTION TWO NIGHTS WEEKLY FOR 1 MONTH THEN 1 NIGHT WEEKLY EXTERNALLY FOR 30 DAYS SOLD: 02/10/2021 [facility] valacyclovir 1000 MG Oral Tablet [Valtrex] Valtrex 1 GM Valt jo 1 GM 02/10/2021 12:00:00 AM EDT 2.0 {tablet} active Va ltrex 1 GM eCW1 ([facility]) NITROFURANTOIN, MACROCRYSTALS 25 MG / Ni trofurantoin, Monohydrate 75 MG Oral Capsule [Macrobid] Macrobid 100 MG Macrobid 100 MG 02/10/2021 12:00:00 AM EDT 1.0 {capsule} suspended Macrobid 100 MG eCW1 ([facility]) NITROFURANTOIN, MACROCRYSTALS 25 MG / Ni trofurantoin, Monohydrate 75 MG Oral Capsule [Macrobid] Macrobid 100 MG Macrobid 100 MG 02/10/2021 12:00:00 AM EDT 1.0 {capsule} suspended Macrobid 100 MG eCW1 ([facility]) 0.05 % 02/10/2021 12:00:00 AM EDT ointment 15 USE APPLICTION TWO NIGHTS WEEKLY FOR 1 MONTH THEN 1 NIGHT WEEKLY EXTERNALLY FOR 30 DAYS USE APPLICTION TWO NIGHTS WEEKLY FOR 1 MONTH THEN 1 NIGHT WEEKLY EXTERNALLY FOR 30 DAYS SOLD: 03/14/2021 [facility] NITROFURANTOIN, MACROCRYSTALS 25 MG / Ni trofurantoin, Monohydrate 75 MG Oral Capsule [Macrobid] Macrobid 100 MG Macrobid 100 MG 02/10/2021 12:00:00 AM EDT 1.0 {capsule} active Macrobid 100 MG eC W1 ([facility]) NITROFURANTOIN, MACROCRYSTALS 25 MG / Ni trofurantoin, Monohydrate 75 MG Oral Capsule [Macrobid] Macrobid 100 MG Macrobid 100 MG 02/10/2021 12:00:00 AM EDT 1.0 {capsule} active Macrobid 100 MG eC W1 ([facility]) valacyclovir 1000 MG Oral Tablet [Valtrex] Valtrex 1 GM Valt jo 1 GM 02/10/2021 12:00:00 AM EDT 2.0 {tablet} suspended Valtrex 1 GM eCW1 ([facility]) NITROFURANTOIN, MACROCRYSTALS 25 MG / Ni trofurantoin, Monohydrate 75 MG Oral Capsule [Macrobid] Macrobid 100 MG Macrobid 100 MG 02/10/2021 12:00:00 AM EDT 1.0 {capsule} active Macrobid 100 MG eC W1 ([facility]) valacyclovir 1000 MG Oral Tablet [Valtrex] Valtrex 1 GM Valt jo 1 GM 02/10/2021 12:00:00 AM EDT 2.0 {tablet} suspended Valtrex 1 GM eCW1 ([facility]) valacyclovir 1000 MG Oral Tablet [Valtrex] Valtrex 1 GM Valt jo 1 GM 02/10/2021 12:00:00 AM EDT 2.0 {tablet} suspended Valtrex 1 GM eCW1 ([facility]) Clobetasol Propionate 0.0005 MG/MG Topic al Ointment Clobetasol Propionate 0.05 % Clobetasol Propionate 0.05 % 02/05/2021 12:00:00 AM EDT 1. 0 {application} active Clobetasol Propionate 0.0 5 % eCW1 ([facility]) Clobetasol Propionate 0.0005 MG/MG Topic al Ointment Clobetasol Propionate 0.05 % Clobetasol Propionate 0.05 % 02/05/2021 12:00:00 AM EDT 1. 0 {application} active Clobetasol Propionate 0.0 5 % eCW1 ([facility]) Clobetasol Propionate 0.0005 MG/MG Topic al Ointment Clobetasol Propionate 0.05 % Clobetasol Propionate 0.05 % 02/05/2021 12:00:00 AM EDT 1. 0 {application} active Clobetasol Propionate 0.0 5 % eCW1 ([facility]) Clobetasol Propionate 0.0005 MG/MG Topic al Ointment Clobetasol Propionate 0.05 % Clobetasol Propionate 0.05 % 02/05/2021 12:00:00 AM EDT 1. 0 {application} active Clobetasol Propionate 0.0 5 % eCW1 ([facility]) Clobetasol Propionate 0.0005 MG/MG Topic al Ointment Clobetasol Propionate 0.05 % Clobetasol Propionate 0.05 % 02/05/2021 12:00:00 AM EDT 1. 0 {application} active Clobetasol Propionate 0.0 5 % eCW1 ([facility]) Clobetasol Propionate 0.0005 MG/MG Topic al Ointment Clobetasol Propionate 0.05 % Clobetasol Propionate 0.05 % 02/05/2021 12:00:00 AM EDT 1. 0 {application} active Clobetasol Propionate 0.0 5 % eCW1 ([facility]) 10 mg 01/28/2021 12:00:00 AM EDT tablet 30 TAKE ONE TABLET BY MOUTH EVERY DAY TAKE ONE TABLET BY MOUTH EVERY DAY SOLD: 08/10/2021 [facility] 10 mg 01/28/2021 12:00:00 AM EDT tablet 30 TAKE ONE TABLET BY MOUTH EVERY DAY TAKE ONE TABLET BY MOUTH EVERY DAY SOLD: 06/02/2021 [facility] 10 mg 01/28/2021 12:00:00 AM EDT tablet 30 TAKE ONE TABLET BY MOUTH EVERY DAY TAKE ONE TABLET BY MOUTH EVERY DAY SOLD: 01/29/2021 [facility] 10 mg 01/28/2021 12:00:00 AM EDT tablet 30 TAKE ONE TABLET BY MOUTH EVERY DAY TAKE ONE TABLET BY MOUTH EVERY DAY SOLD: 04/30/2021 [facility] 10 mg 01/28/2021 12:00:00 AM EDT tablet 30 TAKE ONE TABLET BY MOUTH EVERY DAY TAKE ONE TABLET BY MOUTH EVERY DAY SOLD: 02/27/2021 [facility] 10 mg 01/28/2021 12:00:00 AM EDT tablet 30 TAKE ONE TABLET BY MOUTH EVERY DAY TAKE ONE TABLET BY MOUTH EVERY DAY SOLD: 03/28/2021 [facility] Metronidazole 500 MG Oral Tablet METRONIDAZOLE 01/24/2021 12:0 0:00 AM EDT tablet 10 TAKE ONE TABLET BY M OUTH TWICE A DAY WITH FOOD FOR 5 DAYS DO NOT DRINK ALCOHOL TAKE ONE TABLET BY MOUTH TWICE A DAY WIT H FOOD FOR 5 DAYS DO NOT DRINK ALCOHOL SOLD: 01/24/2021 [facility] 100 mg 01/24/2021 12:00:00 AM EDT tablet 2 TAKE ONE TABLET BY MOUTH MAY REPEAT IN 3 DAYS TAKE ONE TABLET BY MOUTH MAY REPEAT IN 3 DAYS SOLD: 01/25/20 [facility] Fluconazole 100 MG Oral Tablet [Diflucan] Diflucan 01/24/2021 1 2:00:00 AM EDT ORAL completed [facility] ([facility]) Metronidazole 500 MG Oral Tablet Metronidazole 01/24/2021 12:00:00 AM EDT ORAL completed MEDENT ([facility]) 40 mg 01/07/2021 12:00:00 AM EDT capsule,delayed release (DR/EC) 60 TAKE ONE CAPSULE BY MOUTH TWICE A DAY TAKE ONE CAPSULE BY MOUTH TWICE A DAY SOLD: 02/10/2021 [facility] 40 mg 01/07/2021 12:00:00 AM EDT capsule,delayed release (DR/EC) 60 TAKE ONE CAPSULE BY MOUTH TWICE A DAY TAKE ONE CAPSULE BY MOUTH TWICE A DAY SOLD: 06/13/2021 [facility] 40 mg 01/07/2021 12:00:00 AM EDT capsule,delayed release (DR/EC) 60 TAKE ONE CAPSULE BY MOUTH TWICE A DAY TAKE ONE CAPSULE BY MOUTH TWICE A DAY SOLD: 03/14/2021 [facility] 40 mg 01/07/2021 12:00:00 AM EDT capsule,delayed release (DR/EC) 60 TAKE ONE CAPSULE BY MOUTH TWICE A DAY TAKE ONE CAPSULE BY MOUTH TWICE A DAY SOLD: 04/19/2021 [facility] 40 mg 01/07/2021 12:00:00 AM EDT capsule,delayed release (DR/EC) 60 TAKE ONE CAPSULE BY MOUTH TWICE A DAY TAKE ONE CAPSULE BY MOUTH TWICE A DAY SOLD: 05/14/2021 [facility] 40 mg 01/07/2021 12:00:00 AM EDT capsule,delayed release (DR/EC) 60 TAKE ONE CAPSULE BY MOUTH TWICE A DAY TAKE ONE CAPSULE BY MOUTH TWICE A DAY SOLD: 01/10/2021 [facility] 875-125 mg 01/03/2021 12:00:00 AM EST tablet 14 TAKE ONE TABLET BY MOUTH TWICE A DAY FOR 7 DAYS TAKE ONE TABLET BY MOUTH TWICE A DAY FOR 7 DAYS SOLD: 01/03/2021 [facility] Amoxicillin 875 MG / Clavulanate 125 MG Oral Tablet Am oxicillin/Clavulanate Potassium 01/03/2021 12:00:00 AM EST ORAL completed [facility] ([facility]) Citalopram 40 MG Oral Tablet CITALOPRAM HYDROBROMIDE 12/23/2020 12:00:00 AM EST tablet 30 TAKE ONE TABLET BY MOUTH EVERY D AY TAKE ONE TABLET BY MOUTH EVERY DAY SOLD: 06/02/2021 [facility] Citalopram 40 MG Oral Tablet CITALOPRAM HYDROBROMIDE 12/23/2020 12:00:00 AM EST tablet 30 TAKE ONE TABLET BY MOUTH EVERY D AY TAKE ONE TABLET BY MOUTH EVERY DAY SOLD: 02/27/2021 [facility] Citalopram 40 MG Oral Tablet CITALOPRAM HYDROBROMIDE 12/23/2020 12:00:00 AM EST tablet 30 TAKE ONE TABLET BY MOUTH EVERY D AY TAKE ONE TABLET BY MOUTH EVERY DAY SOLD: 04/30/2021 [facility] Citalopram 40 MG Oral Tablet CITALOPRAM HYDROBROMIDE 12/23/2020 12:00:00 AM EST tablet 30 TAKE ONE TABLET BY MOUTH EVERY D AY TAKE ONE TABLET BY MOUTH EVERY DAY SOLD: 12/26/2020 [facility] Citalopram 40 MG Oral Tablet CITALOPRAM HYDROBROMIDE 12/23/2020 12:00:00 AM EST tablet 30 TAKE ONE TABLET BY MOUTH EVERY D AY TAKE ONE TABLET BY MOUTH EVERY DAY SOLD: 01/24/2021 [facility] Citalopram 40 MG Oral Tablet CITALOPRAM HYDROBROMIDE 12/23/2020 12:00:00 AM EST tablet 30 TAKE ONE TABLET BY MOUTH EVERY D AY TAKE ONE TABLET BY MOUTH EVERY DAY SOLD: 03/28/2021 [facility] Amoxicillin 875 MG / Clavulanate 125 MG Oral Tablet Amoxicillin-Pot Clavulanate 875-125 MG Amoxicillin-Pot Clavulanate 875-125 MG 11/04/2020 12:00:00 AM ES T 1.0 {tablet} suspended Amoxicillin-Pot C lavulanate 875-125 MG eCW1 ([facility]) Amoxicillin 875 MG / Clavulanate 125 MG Oral Tablet Amoxicillin-Pot Clavulanate 875-125 MG Amoxicillin-Pot Clavulanate 875-125 MG 11/04/2020 12:00:00 AM ES T 1.0 {tablet} suspended Amoxicillin-Pot C lavulanate 875-125 MG eCW1 ([facility]) Amoxicillin 875 MG / Clavulanate 125 MG Oral Tablet Amoxicillin-Pot Clavulanate 875-125 MG Amoxicillin-Pot Clavulanate 875-125 MG 11/04/2020 12:00:00 AM ES T 1.0 {tablet} active Amoxicillin-Pot Cla vulanate 875-125 MG eCW1 ([facility]) Amoxicillin 875 MG / Clavulanate 125 MG Oral Tablet Amoxicillin-Pot Clavulanate 875-125 MG Amoxicillin-Pot Clavulanate 875-125 MG 11/04/2020 12:00:00 AM ES T 1.0 {tablet} suspended Amoxicillin-Pot C lavulanate 875-125 MG eCW1 ([facility]) Amoxicillin 875 MG / Clavulanate 125 MG Oral Tablet Amoxicillin-Pot Clavulanate 875-125 MG Amoxicillin-Pot Clavulanate 875-125 MG 11/04/2020 12:00:00 AM ES T 1.0 {tablet} suspended Amoxicillin-Pot C lavulanate 875-125 MG eCW1 ([facility]) Amoxicillin 875 MG / Clavulanate 125 MG Oral Tablet Amoxicillin-Pot Clavulanate 875-125 MG Amoxicillin-Pot Clavulanate 875-125 MG 11/04/2020 12:00:00 AM ES T 1.0 {tablet} suspended Amoxicillin-Pot C lavulanate 875-125 MG eCW1 ([facility]) Amoxicillin 875 MG / Clavulanate 125 MG Oral Tablet Amoxicillin-Pot Clavulanate 875-125 MG Amoxicillin-Pot Clavulanate 875-125 MG 11/04/2020 12:00:00 AM ES T 1.0 {tablet} active Amoxicillin-Pot Cla vulanate 875-125 MG eCW1 ([facility]) Amoxicillin 875 MG / Clavulanate 125 MG Oral Tablet Amoxicillin-Pot Clavulanate 875-125 MG Amoxicillin-Pot Clavulanate 875-125 MG 11/04/2020 12:00:00 AM ES T 1.0 {tablet} active Amoxicillin-Pot Cla vulanate 875-125 MG eCW1 ([facility]) Amoxicillin 875 MG / Clavulanate 125 MG Oral Tablet Amoxicillin-Pot Clavulanate 875-125 MG Amoxicillin-Pot Clavulanate 875-125 MG 11/04/2020 12:00:00 AM ES T 1.0 {tablet} suspended Amoxicillin-Pot C lavulanate 875-125 MG eCW1 ([facility]) Amoxicillin 875 MG / Clavulanate 125 MG Oral Tablet Amoxicillin-Pot Clavulanate 875-125 MG Amoxicillin-Pot Clavulanate 875-125 MG 11/04/2020 12:00:00 AM ES T 1.0 {tablet} suspended Amoxicillin-Pot C lavulanate 875-125 MG eCW1 ([facility]) Amoxicillin 875 MG / Clavulanate 125 MG Oral Tablet Amoxicillin-Pot Clavulanate 875-125 MG Amoxicillin-Pot Clavulanate 875-125 MG 11/04/2020 12:00:00 AM ES T 1.0 {tablet} active Amoxicillin-Pot Cla vulanate 875-125 MG eCW1 ([facility]) Amoxicillin 875 MG / Clavulanate 125 MG Oral Tablet Amoxicillin-Pot Clavulanate 875-125 MG Amoxicillin-Pot Clavulanate 875-125 MG 11/04/2020 12:00:00 AM ES T 1.0 {tablet} suspended Amoxicillin-Pot C lavulanate 875-125 MG eCW1 ([facility]) 875-125 mg 11/04/2020 12:00:00 AM EST tablet 14 TAKE ONE TABLET BY MOUTH EVERY 12 HOURS FOR 7 DAYS TAKE ONE TABLET BY MOUTH EVERY 12 HOURS FOR 7 DAYS SOLD: 11/04/2020 [facility] Amoxicillin 875 MG / Clavulanate 125 MG Oral Tablet Amoxicillin-Pot Clavulanate 875-125 MG Amoxicillin-Pot Clavulanate 875-125 MG 11/04/2020 12:00:00 AM ES T 1.0 {tablet} suspended Amoxicillin-Pot C lavulanate 875-125 MG eCW1 ([facility]) Amoxicillin 875 MG / Clavulanate 125 MG Oral Tablet Amoxicillin-Pot Clavulanate 875-125 MG Amoxicillin-Pot Clavulanate 875-125 MG 11/04/2020 12:00:00 AM ES T 1.0 {tablet} active Amoxicillin-Pot Cla vulanate 875-125 MG eCW1 ([facility]) Amoxicillin 875 MG / Clavulanate 125 MG Oral Tablet Amoxicillin-Pot Clavulanate 875-125 MG Amoxicillin-Pot Clavulanate 875-125 MG 11/04/2020 12:00:00 AM ES T 1.0 {tablet} active Amoxicillin-Pot Cla vulanate 875-125 MG eCW1 ([facility]) Amoxicillin 875 MG / Clavulanate 125 MG Oral Tablet Amoxicillin-Pot Clavulanate 875-125 MG Amoxicillin-Pot Clavulanate 875-125 MG 11/04/2020 12:00:00 AM ES T 1.0 {tablet} suspended Amoxicillin-Pot C lavulanate 875-125 MG eCW1 ([facility]) Amoxicillin 875 MG / Clavulanate 125 MG Oral Tablet Amoxicillin-Pot Clavulanate 875-125 MG Amoxicillin-Pot Clavulanate 875-125 MG 11/04/2020 12:00:00 AM ES T 1.0 {tablet} suspended Amoxicillin-Pot C lavulanate 875-125 MG eCW1 ([facility]) Amoxicillin 875 MG / Clavulanate 125 MG Oral Tablet Amoxicillin-Pot Clavulanate 875-125 MG Amoxicillin-Pot Clavulanate 875-125 MG 11/04/2020 12:00:00 AM ES T 1.0 {tablet} suspended Amoxicillin-Pot C lavulanate 875-125 MG eCW1 ([facility]) 20 mg 10/30/2020 12:00:00 AM EST tablet 10 TAKE ONE TABLET BY MOUTH TWICE A DAY FOR 5 DAYS TAKE ONE TABLET BY MOUTH TWICE A DAY FOR 5 DAYS SOLD: 2020 [facility] Azithromycin 250 MG Oral Tablet Azithromycin 10/30/2020 12:00:00 AM EST completed [facility] ([facility]) Prednisone 20 MG Oral Tablet Prednisone 10/30/2020 12:00:00 AM EST completed [facility] ([facility]) 250 mg 10/30/2020 12:00:00 AM EST tablet 6 TAKE TWO TABLETS BY MOUTH AT ONCE ON THE FIRST DAY THEN TAKE ONE DAILY THEREAFTER TAKE TWO TABLETS BY MOUTH AT ONCE ON THE FIRST DAY THEN TAKE ONE DAILY THEREAFTER SOLD: 10/30/2020 [facility] 20 mg 09/09/2020 12:00:00 AM EST tablet 10 TAKE TWO TABLETS BY MOUTH EVERY MORNING FOR 5 DAYS TAKE TWO TABLETS BY MOUTH EVERY MORNING FOR 5 DAYS YUAN [facility] 25 mg 09/09/2020 12:00:00 AM EST tablet 20 TAKE ONE TABLET BY MOUTH FOUR TIMES A DAY FOR 5 DAYS TAKE ONE TABLET BY MOUTH FOUR TIMES A DAY FOR 5 DAYS SOLD: 09/09/2020 [facility] 2 % 09/09/2020 12:00:00 AM EST ointment 22 APPLY TOPICALLY TO AFFECTED AREA THREE TIMES A DAY FOR 10 DAYS APPLY TOPICALLY TO AFFECTED AREA THREE T IMES A DAY FOR 10 DAYS SOLD: 09/09/2020 [facility] 1,000 mcg 07/11/2020 12:00:00 AM EDT tablet 30 TAKE ONE TABLET BY MOUTH EVERY DAY TAKE ONE TABLET BY MOUTH EVERY DAY SOLD: 09/07/2020 [facility] 1,000 mcg 07/11/2020 12:00:00 AM EDT tablet 30 TAKE ONE TABLET BY MOUTH EVERY DAY TAKE ONE TABLET BY MOUTH EVERY DAY SOLD: 07/12/2020 [facility] 1,000 mcg 07/11/2020 12:00:00 AM EDT tablet 30 TAKE ONE TABLET BY MOUTH EVERY DAY TAKE ONE TABLET BY MOUTH EVERY DAY SOLD: 10/11/2020 [facility] 1,000 mcg 07/11/2020 12:00:00 AM EDT tablet 30 TAKE ONE TABLET BY MOUTH EVERY DAY TAKE ONE TABLET BY MOUTH EVERY DAY SOLD: 08/10/2020 [facility] 10 mg 06/10/2020 12:00:00 AM EDT tablet 30 TAKE ONE TABLET BY MOUTH EVERY DAY TAKE ONE TABLET BY MOUTH EVERY DAY SOLD: 09/07/2020 [facility] Citalopram 40 MG Oral Tablet CITALOPRAM HYDROBROMIDE 06/10/2020 12:00:00 AM EDT tablet 30 TAKE ONE TABLET BY MOUTH EVERY D AY TAKE ONE TABLET BY MOUTH EVERY DAY SOLD: 09/07/2020 [facility] 10 mg 06/10/2020 12:00:00 AM EDT tablet 30 TAKE ONE TABLET BY MOUTH EVERY DAY TAKE ONE TABLET BY MOUTH EVERY DAY SOLD: 10/11/2020 [facility] 10 mg 06/10/2020 12:00:00 AM EDT tablet 30 TAKE ONE TABLET BY MOUTH EVERY DAY TAKE ONE TABLET BY MOUTH EVERY DAY SOLD: 07/12/2020 [facility] Citalopram 40 MG Oral Tablet CITALOPRAM HYDROBROMIDE 06/10/2020 12:00:00 AM EDT tablet 30 TAKE ONE TABLET BY MOUTH EVERY D AY TAKE ONE TABLET BY MOUTH EVERY DAY SOLD: 08/10/2020 [facility] 10 mg 06/10/2020 12:00:00 AM EDT tablet 30 TAKE ONE TABLET BY MOUTH EVERY DAY TAKE ONE TABLET BY MOUTH EVERY DAY SOLD: 08/10/2020 [facility] Citalopram 40 MG Oral Tablet CITALOPRAM HYDROBROMIDE 06/10/2020 12:00:00 AM EDT tablet 30 TAKE ONE TABLET BY MOUTH EVERY D AY TAKE ONE TABLET BY MOUTH EVERY DAY SOLD: 10/11/2020 [facility] Citalopram 40 MG Oral Tablet CITALOPRAM HYDROBROMIDE 06/10/2020 12:00:00 AM EDT tablet 30 TAKE ONE TABLET BY MOUTH EVERY D AY TAKE ONE TABLET BY MOUTH EVERY DAY SOLD: 07/12/2020 [facility] 400 mcg 06/09/2020 12:00:00 AM EDT tablet 30 TAKE ONE TABLET BY MOUTH EVERY DAY TAKE ONE TABLET BY MOUTH EVERY DAY SOLD: 09/07/2020 [facility] 400 mcg 06/09/2020 12:00:00 AM EDT tablet 30 TAKE ONE TABLET BY MOUTH EVERY DAY TAKE ONE TABLET BY MOUTH EVERY DAY SOLD: 08/10/2020 [facility] MULTIVITAMIN 06/09/2020 12:00:00 AM EDT tablet 30 TAKE ONE TABLET BY MOUTH EVERY DAY TAKE ONE TABLET BY MOUTH EVERY DAY SOLD: 07/12/2020 [facility] 400 mcg 06/09/2020 12:00:00 AM EDT tablet 30 TAKE ONE TABLET BY MOUTH EVERY DAY TAKE ONE TABLET BY MOUTH EVERY DAY SOLD: 10/11/2020 [facility] 50 mcg/actuation 04/04/2020 12:00:00 AM EDT spray,suspension 16 SPRAY ONE SPRAY IN EACH NOSTRIL TWICE A DAY SPRAY ONE SPRAY IN EACH NOSTRIL TWICE A DAY SOLD: 07/12/2020 [facility] 40 mg 01/22/2020 12:00:00 AM EDT capsule,delayed release (DR/EC) 60 TAKE ONE CAPSULE BY MOUTH TWICE A DAY TAKE ONE CAPSULE BY MOUTH TWICE A DAY SOLD: 07/05/2020 [facility] Insurance Providers Payer name Policy type / Coverage type Policy ID Covered green party ID Covered green party's relationship to chapman Policy Chapman Plan Information [facility] [id number] SP [id number] [facility] [id number] SP [id number] [facility] MEDICAID [id number] Macrina [id number] MEDICAID [id number] [facility] HMO/PPO/POS [id number] MEDICAID [id number] SP [id number] [facility] [place] [id number] SP [id number] [facility] Health Maintenance Organization ([facility] [id number] Self [id number] [facility] [place] [id number] SP [id number] [facility] Health Maintenance Organization ([facility]) [id number] Self [id number] MEDICAID [id number] SP [id number] [facility] [place] [id number] [place] [id number] [employer] [id number] Self [id number] [employer]. [id number] Self [id number] [employer] [id number] Self [id number] [employer] [id number] Self [id number] ANSI-Medicaid [id number] ANSI-Commercial [id number] ANSI-Medicaid [id number] ANSI-Medicaid [id number] ANSI-Medicaid [id number] ANSI-Medicaid [id number] ANSI-Medicaid [id number] ANSI-Commercial [id number] ANSI-Medicaid [id number] ANSI-Medicaid [id number] ANSI-Medicaid [id number] ANSI-Commercial [id number] ANSI-Commercial [id number] ANSI-Medicaid [id number] [facility]icaid [id number] [facility]-Medicaid [id number] [facility] [id number] ANSI-Commercial [id number] ANSI-Medicaid [id number] ANSI-Medicaid [id number] ANSI-Medicaid [id number] ANSI-Medicaid [id number] ANSI-Medicaid [id number] ANSI-Commercial [id number] ANSI-Medicaid [id number] ANSI-Commercial [id number]-[id number] [id number]-s3z2-61s2-339b-[id number] ANSI-Medicaid [id number] ANSI-Medicaid [id number] [facility] O [id number] S [id number] ANSI-Medicaid [id number] ANSI-Medicaid [id number] ANSI-Commercial [id number] ANSI-Medicaid [id number] ANSI-Commercial cter07mv-atm9-321c-t1ey-[id number] qvqw47hf-xfx2-132v-s5tb-[id number] ANSI-Medicaid [id number] ANSI-Medicaid [id number] ANSI-Medicaid [id number] ANSI-Medicaid [id number] ANSI-Medicaid [id number] ANSI-Medicaid [id number] ANSI-Commercial [id number]-p7c8-[id number] [id number]-[id number] ANSI-Medicaid [id number] ANSI-Commercial [id number]-174t-[id number]-970q-[id number] ANSI-Medicaid [id number] ANSI-Medicaid [id number] [facility] [id number] ANSI-Medicaid [id number] ANSI-Commercial [id number]-[id number]-h30x-[id number] ANSI-Medicaid [id number] ANSI-Commercial [id number]-[id number] u537906h-gx1l-25br-[id number] ANSI-Medicaid [id number] ANSI-Medicaid [id number] ANSI-Medicaid [id number] [facility] MEDICAID PI PI ANSI-Medicaid [id number] ANSI-Medicaid [id number] ANSI-Commercial [id number]-[id number] ANSI-Medicaid [id number] [facility] [id number] Self [id number] ANSI-Medicaid [id number] ANSI-Medicaid [id number] ANSI-Commercial [id number]-[id number]-[id number] ANSI-Medicaid [id number] ANSI-Medicaid [id number] ANSI-Medicaid [id number] ANSI-Medicaid [id number] ANSI-Commercial [id number] [facility] [id number] Preferred Provider Organization (PPO) [id number] [facility] [id number] Self [id number] ANSI-Medicaid [id number] ANSI-Medicaid [id number] ANSI-Medicaid [id number] ANSI-Commercial [id number] ANSI-Medicaid [id number] ANSI-Medicaid [id number] ANSI-Commercial [id number]-[id number]-[id number] [id number]-[id number]-[id number] ANSI-Medicaid [id number] ANSI-Medicaid [id number] ANSI-Commercial [id number] ANSI-Medicaid [id number] ANSI-Medicaid [id number] ANSI-Medicaid [id number] ANSI-Commercial [id number] ANSI-Medicaid [id number] ANSI-Medicaid [id number] [employer]BS Medigap Part B [id number] Self [id number] [facility] [id number] SP [id number] MEDICAID [id number] SP [id number] [facility] [id number] SP [id number] [place] PPO 302/307 [id number] SP [id number] [place]BS [place] PPO 302/307 [id number] SP [id number] [employer] B [id number] S VYS [id number] MEDICAID M [id number] S [id number] [employer] BCBS B [id number] S [id number] [employer] B [id number] S [id number] [place]BS [place] PPO 302/307 [id number] SP [id number] [employer] BCBS B [id number] S [id number] BLUE CROSS BLUE SHIELD -O/P [id number] MEDICAID -O/P [id number] BCBS [place] PPO 302/307 [id number] SP [id number] [employer] BCBS B [id number] S VYS [id number] [place]BS [place] PPO 302/307 [id number] SP [id number] BLUE CROSS BLUE SHIELD -O/P [id number] 18 [id number] [place]BS [place] PPO 302/307 [id number] SP [id number] [employer] BCBS B [id number] S VYS [id number] [facility] COMMUNITY PLAN MEDICAID [id number] BC/BS Of [place] Commercial [id number] Self [facility] Plan Medigap Part B [id number] Self BC/BS Of [place] Commercial [id number] Self [facility] Community Plan-Caid Medicaid [id number] Self [facility] MEDICAID COMMUNITY PLAN [id number] [facility] -O [id number] BC/BS OF [place] P [id number] S [id number] [id number] BC/BS OF [place] P [id number] S V [id number] BLUE CROSS [place] PLAN [id number] SP [id number] UN COMMUNITY PLAN MCDO [id number] SP [id number] PCAP [facility] [id number] SP [id number] [facility] COMMUNITY PLAN [facility] [id number] SP [id number] Managed Care - [facility] Community Plan P UNAVAILABLE S UNAVAILABLE Medicaid S UNAVAILABLE S UNAVAILA BLE ANSI-Medicaid [id number] ANSI-Medicaid [id number] ANSI-Commercial [id number] ANSI-Medicaid [id number] ANSI-Medicaid [id number] ANSI-Commercial [id number] ANSI-Medicaid [id number] ANSI-Medicaid [id number] [facility] [id number] ANSI-Medicaid [id number] ANSI-Medicaid [id number] ANSI-Medicaid [id number] Problems, Conditions, and Diagnoses Code Display Name Description Problem Type Effective Dates Data Source(s) F32.9 295776163 Major depressive dis order, remission status unspecified, unspecified whether recurrent Problem 05/14/2021 12:00:00 AM EDT eCW 1 ([facility]) G47.33 90013194 VLAD (obstructive sleep apnea) Problem 05/14/2021 12:00:00 AM EDT eCW1 ([facility]) G47.00 [id number] Insomnia, unspecified type Problem 12:00:00 AM EDT eCW1 ([facility]) L90.0 Lichen sclerosus Lichen sclerosus Problem 02/05/2021 12 :00:00 AM EDT eCW1 ([facility]) Surgeries/Procedures Procedure Description Date Indications Data Source(s) OFFICE OUTPATIENT VISIT 25 MINUTES 08/10/2021 12:00:00 [facility] OFF[facility] OUTPATIENT VISIT 15 MINUTES 05/03/2021 12:00:00 AM EDT [facility] ([facility]) OFFICE OUTPATIENT VISIT 15 MINUTES 01/24/2021 12:00:00 AM EDT [facility] ([facility]) OFFICE OUTPATIENT VISIT 25 MINUTES 01/03/2021 12:00:00 AM EST [facility] ([facility]) Results ID Date Data Source [id number] 08/20/2021 08:15:00 AM EDT [facility] Name Value Range Interpretation Code Description Data Farrah rce(s) Supporting Document(s) SARS-CoV-2 RNA Resp Ql DAPHNEY+probe NOT DETECTED [facility] This lab was ordered by NAN santoyo and reported by [facility] Child. ID Date Data Source [id number] 08/10/2021 12:00:00 AM EDT [facility] Name Value Range Interpretation Code Description Data Farrah rce(s) Supporting Document(s) SARS-CoV2 Rapid Antigen Negative [facility] This lab was ordered by [facility] and reported by [facility]. ID Date Data Source [id number] 10/30/2020 12:00:00 AM EST [facility] Name Value Range Interpretation Code Description Data Farrah rce(s) Supporting Document(s) SARS coronavirus 2 Ag Negative [facility] This lab was ordered by [facility] and reported by [facility]. ID Date Data Source [id number] 07/23/2021 12:45:00 PM EDT [facility] Name Value Range Interpretation Code Description Data Farrah rce(s) Supporting Document(s) SARS-CoV-2 RNA Resp Ql DAPHNEY+probe NOT DETECTED [facility] This lab was ordered by NAN santoyo and reported by [facility]. ID Date Data Source [id number] 07/09/2021 07:00:00 PM EDT [facility] Name Value Range Interpretation Code Description Data Farrah rce(s) Supporting Document(s) SARS-CoV-2 RNA Resp Ql DAPHNEY+probe NOT DETECTED [facility] This lab was ordered by NAN santoyo and reported by [facility]. ID Date Data Source [id number] 07/07/2021 09:15:00 AM EDT [facility] Name Value Range Interpretation Code Description Data Farrah rce(s) Supporting Document(s) SARS-CoV-2 RNA Resp Ql DAPHNEY+probe NOT DETECTED [facility] This lab was ordered by NAN santoyo and reported by [facility]. ID Date Data Source [id number] 06/03/2021 10:15:00 AM EDT [facility] Name Value Range Interpretation Code Description Data Farrah rce(s) Supporting Document(s) SARS-CoV-2 RNA Resp Ql DAPHNEY+probe NOT DETECTED [facility] This lab was ordered by NAN santoyo and reported by [facility]. ID Date Data Source PAP REQUEST FOR SERVICE 02/25/2021 12:00:00 AM EDT eCW1 ([facility]) Name Value Range Interpretation Code Description Data Farrah rce(s) Supporting Document(s) PAP REQUEST FOR SERVICE eCW1 ( [facility]) ID Date Data Source URINE CULTURE 02/05/2021 12:00:00 AM EDT eCW1 ([facility]) Name Value Range Interpretation Code Description Data Farrah rce(s) Supporting Document(s) Laboratory studies (set) URINE CULTU RE eCW1 ([facility]) ID Date Data Source HERPES SIMPLEX VIRUS TYPE 1&2 IgM 02/05/2021 12:00:00 AM EDT eCW1 ([facility]) Name Value Range Interpretation Code Description Data Farrah rce(s) Supporting Document(s) <0.91 0.00-0.90 HSV IgM TYPES 1&2 eCW1 ([facility]) ID Date Data Source HSV TYPE 1&2 IgG SPECIFIC 02/05/2021 12:00:00 AM EDT eCW ([facility]) Name Value Range Interpretation Code Description Data Farrah rce(s) Supporting Document(s) 50.00 0.00-0.90 HSV TYPE I IgG SPECIFIC e CW1 ([facility]) <0.91 0.00-0.90 HSV TYPE II IgG SPECIFIC eCW1 ([facility]) ID Date Data Source HEPATITIS C ANTIBODY INDEX 02/05/2021 12:00:00 AM EDT eCW1 ( [facility]) Name Value Range Interpretation Code Description Data Farrah rce(s) Supporting Document(s) < 0.0 <0.8 HEPATITIS C VIRUS HODA IND EX eCW1 ([facility]) ID Date Data Source [id number] 02/05/2021 12:00:00 AM EDT eCW1 ([facility]) Name Value Range Interpretation Code Description Data Farrah rce(s) Supporting Document(s) HIV 1&2 ANTIBODY SCREEN eCW1 ( [facility]) ID Date Data Source SYPHILIS ANTIBODY (RPR SCREEN) 02/05/2021 12:00:00 AM EDT eC W1 ([facility]) Name Value Range Interpretation Code Description Data Farrah rce(s) Supporting Document(s) NONREACTIVE NONREACTIVE SYPHILIS eCW1 ([facility]) ID Date Data Source HEPATITIS B SURFACE ANTIGEN 02/05/2021 12:00:00 AM EDT eCW1 ([facility]) Name Value Range Interpretation Code Description Data Farrah rce(s) Supporting Document(s) NEGATIVE NEGATIVE HEPATITIS B SURFACE ANTIG EN eCW1 ([facility]) ID Date Data Source HEPATITIS B CORE ANTIBODY IGM 02/05/2021 12:00:00 AM EDT eCW 1 ([facility]) Name Value Range Interpretation Code Description Data Farrah rce(s) Supporting Document(s) NEGATIVE NEGATIVE HEPATITIS B CORE ANTIBODY IGM eCW1 ([facility]) ID Date Data Source HEPATITIS A ANTIBODY IGM 02/05/2021 12:00:00 AM EDT eCW1 ([facility]) Name Value Range Interpretation Code Description Data Farrah rce(s) Supporting Document(s) NEGATIVE NEGATIVE HEPATITIS A ANTIBODY IGM eCW1 ([facility]) ID Date Data Source [id number] 10/30/2020 02:00:00 PM EST [facility] Name Value Range Interpretation Code Description Data Farrah rce(s) Supporting Document(s) SARS coronavirus 2 RNA Not Detected [facility] This lab was ordered by [facility] and reported by [facility]. ID Date Data Source [id number] 09/08/2020 10:00:00 AM EST [facility] Name Value Range Interpretation Code Description Data Farrah rce(s) Supporting Document(s) SARS coronavirus 2 RNA [facility] This lab was ordered by [facility] and reported by [facility]. Procedure Social History Code Duration Value Status Description Data Source(s ) Smoking 05/14/2021 12:00:00 AM EDT Former Smoker completed Former Smoker eCW1 ([facility]) Smoking 05/14/2021 12:00:00 AM EDT Former Smoker completed Former Smoker eCW1 ([facility]) Smoking 05/14/2021 12:00:00 AM EDT Former Smoker completed Former Smoker eCW1 ([facility]) Smoking 05/14/2021 12:00:00 AM EDT Former Smoker completed Former Smoker eCW1 ([facility]) Smoking 05/14/2021 12:00:00 AM EDT Former Smoker completed Former Smoker eCW1 ([facility]) Smoking 05/14/2021 12:00:00 AM EDT Former Smoker completed Former Smoker eCW1 ([facility]) Smoking 05/14/2021 12:00:00 AM EDT Former Smoker completed Former Smoker eCW1 ([facility]) Smoking 05/03/2021 12:00:00 AM EDT Patient is a former smoker completed Patient is a former smoker [facility] ([facility] Smoking 02/25/2021 12:00:00 AM EDT Former Smoker completed Former Smoker eCW1 ([facility]) Smoking 02/25/2021 12:00:00 AM EDT Former Smoker completed Former Smoker eCW1 ([facility]) Smoking 02/25/2021 12:00:00 AM EDT Former Smoker completed Former Smoker eCW1 ([facility]) Smoking 02/05/2021 12:00:00 AM EDT Former Smoker completed Former Smoker eCW1 ([facility]) Smoking 02/05/2021 12:00:00 AM EDT Former Smoker completed Former Smoker eCW1 ([facility]) Smoking 02/05/2021 12:00:00 AM EDT Former Smoker completed Former Smoker eCW1 ([facility]) Smoking 02/05/2021 12:00:00 AM EDT Former Smoker completed Former Smoker eCW1 ([facility]) Smoking 11/04/2020 12:00:00 AM EST Former Smoker completed Former Smoker eCW1 ([facility]) Smoking 11/04/2020 12:00:00 AM EST Former Smoker completed Former Smoker eCW1 ([facility]) Smoking 11/04/2020 12:00:00 AM EST Former Smoker completed Former Smoker eCW1 ([facility]) Smoking 11/04/2020 12:00:00 AM EST Former Smoker completed Former Smoker eCW1 ([facility]) Smoking 11/04/2020 12:00:00 AM EST Former Smoker completed Former Smoker eCW1 ([facility]) Smoking 11/04/2020 12:00:00 AM EST Former Smoker completed Former Smoker eCW1 ([facility]) Vital Signs ID Date Data Source UNK Name Value Range Interpretation Code Description Data Source(s) Heart rate 63 /min 63 /min [facility] Respiratory rate 16 /min 16 /min [facility] ( [facility]) Body weight 270.00 [lb_av] 270.00 [lb_av] [facility] Body height 65 [in_i] 65 [in_i] [facility] ([facility]) 5'5" Systolic blood pressure 100 mm[Hg] 100 mm[Hg] [facility] ([facility]) Diastolic blood pressure 70 mm[Hg] 70 mm[Hg] [facility] ([facility]) Oxygen saturation in Arterial blood by Pulse oximetry 98 % 98 % [facility] ([facility]) Body temperature 98.5 [degF] 98.5 [degF] [facility] ([facility]) Body mass index (BMI) [Ratio] 44.9 kg/m2 44.9 k g/m2 [facility] ([facility]) Body weight 278.6 [lb_av] 278.6 [lb_av] [facility]CW1 ([facility] Heart rate 85 /min 85 /min eCW1 ([facility]) Respiratory rate 18 /min 18 /min eCW1 ([facility]) Body temperature 97.5 [degF] 97.5 [degF] eCW1 ( [facility]) Systolic blood pressure 110 mm[Hg] 110 mm[Hg] e CW1 ([facility]) Diastolic blood pressure 70 mm[Hg] 70 mm[Hg] eCW1 ([facility]) Body mass index (BMI) [Ratio] 45.65 kg/m2 45.65 kg/m2 eCW1 ([facility]) Body height 65.5 [in_i] 65.5 [in_i] eCW[facility]) Oxygen saturation in Arterial blood by Pulse oximetry 99 % 99 % MEDENT ([facility], [facility]) Systolic blood pressure 107 mm[Hg] 107 mm[Hg] M EDENT ([facility], [facility]) Diastolic blood pressure 71 mm[Hg] 71 mm[Hg] MEDENT ([facility], [facility]) Heart rate 62 /min 62 /min MEDENT ([facility], [facility]) Body temperature 98.3 [degF] 98.3 [degF] MEDENT ([facility], [facility]) Body weight 276.00 [lb_av] 276.00 [lb_av] MEDEN T ([facility], [facility]) Body height 65 [in_i] 65 [in_i] MEDENT ([facility], [facility]) 5'5" Body mass index (BMI) [Ratio] 45.9 kg/m2 45.9 k g/m2 MEDENT ([facility], [facility]) Respiratory rate 17 /min 17 /min MEDENT ( [facility], [facility]) Body weight 289 [lb_av] 289 [lb_av] eCW1 (Critical access hospital) Body weight 131.09 kg 131.09 kg eCW1 ([facility]) Body height 65.5 [in_i] 65.5 [in_i] eCW1 ([facility] hospital) Body mass index (BMI) [Ratio] 47.36 kg/m2 47.36 kg/m2 W1 ([facility]) Systolic blood pressure 118 mm[Hg] 118 mm[Hg] e CW1 ([facility]) Diastolic blood pressure 80 mm[Hg] 80 mm[Hg] eCW1 ([facility]) Body weight 293 [lb_av] 293 [lb_av] eCW1 ([facility]) Body weight 132.9 kg 132.9 kg W1 ([facility]) Body height 65.5 [in_i] 65.5 [in_i] [facility] (Critical access hospital) Body mass index (BMI) [Ratio] 48.01 kg/m2 48.01 kg/m2 W1 ([facility]) Systolic blood pressure 122 mm[Hg] 122 mm[Hg] e CW1 ([facility]) Diastolic blood pressure 80 mm[Hg] 80 mm[Hg] eCW1 ([facility]) Body height 65 [in_i] 65 [in_i] MEDENT ([facility], [facility]) 5'5" Body mass index (BMI) [Ratio] 48.3 kg/m2 48.3 k g/m2 MEDENT ([facility], [facility]) Body weight 290.00 [lb_av] 290.00 [lb_av] MEDEN T ([facility], [facility]) Systolic blood pressure 110 mm[Hg] 110 mm[Hg] M EDENT ([facility], [facility]) Diastolic blood pressure 78 mm[Hg] 78 mm[Hg] MEDENT ([facility], [facility]) Heart rate 101 /min 101 /min MEDENT ([facility], [facility]) Respiratory rate 14 /min 14 /min MEDENT ( [facility], [facility]) Oxygen saturation in Arterial blood by Pulse oximetry 97 % 97 % MEDENT ([facility], [facility]) Body temperature 97.5 [degF] 97.5 [degF] MEDENT ([facility], [facility]) Respiratory rate 12 /min 12 /min MEDENT ( [facility], [facility]) Oxygen saturation in Arterial blood by Pulse oximetry 97 % 97 % MEDENT ([facility], [facility]) Body temperature 96.9 [degF] 96.9 [degF] MEDENT ([facility], [facility]) Systolic blood pressure 129 mm[Hg] 129 mm[Hg] M EDENT ([facility], [facility]) Diastolic blood pressure 84 mm[Hg] 84 mm[Hg] MEDENT ([facility], [facility]) Heart rate 102 /min 102 /min MEDENT ([facility], [facility]) Body weight 287.00 [lb_av] 287.00 [lb_av] MEDEN T ([facility], [facility]) Body height 64 [in_i] 64 [in_i] MEDENT ([facility], [facility]) 5'4" Body mass index (BMI) [Ratio] 49.3 kg/m2 49.3 k g/m2 MEDENT ([facility], [facility]) Body weight 298 [lb_av] 298 [lb_av] eCW1 (Critical [facility]) Body height 65.5 [in_i] 65.5 [in_i] eCW1 ([facility] access hospital) Body mass index (BMI) [Ratio] 48.83 kg/m2 48.83 kg/m2 W1 ([facility]) Heart rate 84 /min 84 /min eCW1 ([facility]) Respiratory rate 17 /min 17 /min eCW1 ([facility]) Body temperature 98.0 [degF] 98.0 [degF] eCW1 ( [facility]) Systolic blood pressure 122 mm[Hg] 122 mm[Hg] e CW1 ([facility]) Diastolic blood pressure 74 mm[Hg] 74 mm[Hg] eCW1 ([facility]) Diastolic blood pressure 84 mm[Hg] 84 mm[Hg] MEDENT ([facility], [facility]) Systolic blood pressure 122 mm[Hg] 122 mm[Hg] M EDENT ([facility], [facility]) Heart rate 83 /min 83 /min MEDENT [facility] [facility]) Respiratory rate 18 /min 18 /min MEDENT ( [facility], [facility]) Oxygen saturation in Arterial blood by Pulse oximetry 98 % 98 % MEDENT ([facility], [facility]) Body temperature 98.3 [degF] 98.3 [degF] MEDENT ([facility], [facility]) Body weight 245.00 [lb_av] 245.00 [lb_av] MEDEN T ([facility], [facility]) Body height 64 [in_i] 64 [in_i] MEDENT ([facility], [facility]) 5'4" Body mass index (BMI) [Ratio] 42.0 kg/m2 42.0 k g/m2 MEDENT ([facility], [facility]) Diastolic blood pressure 82 mm[Hg] 82 mm[Hg] MEDENT ([facility], [facility]) Body temperature 97.9 [degF] 97.9 [degF] MEDENT ([facility], [facility]) Systolic blood pressure 110 mm[Hg] 110 mm[Hg] M EDENT ([facility], [facility]) Heart rate 78 /min 78 /min MEDENT ([facility], [facility]) Respiratory rate 15 /min 15 /min MEDENT ( [facility], [facility]) Oxygen saturation in Arterial blood by Pulse oximetry 98 % 98 % MEDENT ([facility], [facility]) Body weight 245.00 [lb_av] 245.00 [lb_av] MEDEN T ([facility], [facility]) Body height 64 [in_i] 64 [in_i] MEDENT ([facility]) 5'4" Body mass index (BMI) [Ratio] 42.0 kg/m2 42.0 k g/m2 MEDENT ([facility], [facility]) Patient Treatment Plan of Care Planned Activity Planned Date Details Description Data Source (s) ramelteon 8 MG Oral Tablet 05/14/2021 12:00:00 AM EDT eCW1 ([facility]) Trazodone Hydrochloride 50 MG Oral Tablet 05/14/2021 12:00:00 AM ED T eCW1 ([facility]) ramelteon 8 MG Oral Tablet 05/14/2021 12:00:00 AM EDT eCW1 ([facility]) ramelteon 8 MG Oral Tablet 05/14/2021 12:00:00 AM EDT eCW1 ([facility]) Trazodone Hydrochloride 50 MG Oral Tablet 05/14/2021 12:00:00 AM ED T eCW1 ([facility]) ramelteon 8 MG Oral Tablet 05/14/2021 12:00:00 AM EDT eCW1 ([facility]) Trazodone Hydrochloride 50 MG Oral Tablet 05/14/2021 12:00:00 AM ED T eCW1 ([facility]) ramelteon 8 MG Oral Tablet 05/14/2021 12:00:00 AM EDT eCW1 ([facility]) Trazodone Hydrochloride 50 MG Oral Tablet 05/14/2021 12:00:00 AM ED T eCW1 ([facility]) ramelteon 8 MG Oral Tablet 05/14/2021 12:00:00 AM EDT eCW1 ([facility]) Trazodone Hydrochloride 50 MG Oral Tablet 05/14/2021 12:00:00 AM ED T eCW1 ([facility]) ramelteon 8 MG Oral Tablet 05/14/2021 12:00:00 AM EDT eCW1 ([facility]) Clobetasol Prop Emollient Base 0.05 % 04/16/2021 12:00:00 AM EDT eCW1 ([facility]) Nystatin 100 UNT/MG Topical Powder 02/25/2021 12:00:00 AM EDT eCW1 ([facility]) Nystatin 100 UNT/MG Topical Powder 02/25/2021 12:00:00 AM EDT eCW1 ([facility]) Nystatin 100 UNT/MG Topical Powder 02/25/2021 12:00:00 AM EDT eCW1 ([facility]) Fluconazole 200 MG Oral Tablet [Diflucan] 02/25/2021 12:00:00 AM ED T eCW1 ([facility]) NITROFURANTOIN, MACROCRYSTALS 25 MG / Ni trofurantoin, Monohydrate 75 MG Oral Capsule [Macrobid] 02/10/2021 12:00:00 AM EDT eC W1 ([facility]) valacyclovir 1000 MG Oral Tablet [Valtrex] 02/10/2021 12:00:00 AM E DT eCW1 ([facility]) NITROFURANTOIN, MACROCRYSTALS 25 MG / Ni trofurantoin, Monohydrate 75 MG Oral Capsule [Macrobid] 02/10/2021 12:00:00 AM EDT eC W1 ([facility]) valacyclovir 1000 MG Oral Tablet [Valtrex] 02/10/2021 12:00:00 AM E DT eCW1 ([facility]) NITROFURANTOIN, MACROCRYSTALS 25 MG / Ni trofurantoin, Monohydrate 75 MG Oral Capsule [Macrobid] 02/10/2021 12:00:00 AM EDT eC W1 ([facility]) valacyclovir 1000 MG Oral Tablet [Valtrex] 02/10/2021 12:00:00 AM E DT eCW1 ([facility]) NITROFURANTOIN, MACROCRYSTALS 25 MG / Ni trofurantoin, Monohydrate 75 MG Oral Capsule [Macrobid] 02/10/2021 12:00:00 AM EDT eC W1 ([facility]) valacyclovir 1000 MG Oral Tablet [Valtrex] 02/10/2021 12:00:00 AM E DT eCW1 ([facility]) Clobetasol Propionate 0.0005 MG/MG Topical Ointment 02/06/20 12:00:00 AM EDT eCW1 ([facility]) Clobetasol Propionate 0.0005 MG/MG Topical Ointment 02/06/20 12:00:00 AM EDT eCW1 ([facility]) Clobetasol Propionate 0.0005 MG/MG Topical Ointment 02/06/20 12:00:00 AM EDT eCW1 ([facility]) Clobetasol Propionate 0.0005 MG/MG Topical Ointment 02/06/20 21 12:00:00 AM EDT eCW1 ([facility]) Amoxicillin 875 MG / Clavulanate 125 MG Oral Tablet 11/04/19 21 12:00:00 AM EST eCW1 ([facility]) Amoxicillin 875 MG / Clavulanate 125 MG Oral Tablet 11/04/19 21 12:00:00 AM EST eCW1 ([facility]) Amoxicillin 875 MG / Clavulanate 125 MG Oral Tablet 11/04/19 21 12:00:00 AM EST eCW1 ([facility]) Amoxicillin 875 MG / Clavulanate 125 MG Oral Tablet 11/04/19 21 12:00:00 AM EST eCW1 ([facility]) Amoxicillin 875 MG / Clavulanate 125 MG Oral Tablet 11/04/19 21 12:00:00 AM EST eCW1 ([facility]) Amoxicillin 875 MG / Clavulanate 125 MG Oral Tablet 11/04/19 21 12:00:00 AM EST eCW1 ([facility])
--- OUTSIDE RECORDS SUMMARY | 2021-08-26 09:34 | CCD ---
Author Author [facility] Organization [facility] Address Unknown Phone Unavailable Care Team Providers Care Cad Application Support Specialist Name Role Phone Janneth Ryan Unavailable PROBLEMS Type Condition ICD9-CM Code [id number] Code Onset Dates Condition S tatus W/U Status Risk SNOMED Code Notes Problem Depressed mood F32.9 Active confirmed 89706 9004 Problem Allergic rhinitis, unspecifi ed allergic rhinitis trigger, unspecified rhinitis seasonality J30.9 Active confirmed 64487174 Problem Tension headache G44.209 Active confirmed 39 5416452 Problem Steatohepatitis K75.81 Active confirmed 4421 81183 Problem Environmental allergies Z91.09 Active confirmed 361521319 Problem History of anemia Z86.2 Active confirmed 27 0363059 Problem Rosacea L71.9 Active confirmed 029937967 Problem Gastroesophageal reflux disease, esophagitis pre sence not specified K21.9 Active confirmed 741603940 Problem Melanocytic nevi of right upper limb, including shoulder D22.61 Active confirmed 803929642 Problem Melanocytic nevi of trunk D22.5 Active confirmed 159768851 Problem Scabies B86 Active confirmed 548822276 Problem Insomnia, unspecified type G47.00 Active confirmed 627596918 Problem Melanocytic nevi of left upper limb, including shoulder D22.62 Active confirmed 126338645 Problem Type 2 diabetes mellitus wit hout complication, without long-term current use of insulin E11.9 Active confirmed 771844372 Problem VLAD (obstructive sleep apnea) G47.33 Active confirm ed 43087091 Problem Acute right-sided low back pain with right-sided sciatica M54.41 Active confirmed 296430753 Problem Status post gastric bypass for obesity Z98.84 A ctive confirmed 067397891 Problem Seborrheic keratoses L82.1 Active confirmed 608962456 Problem Adjustment disorder with depressed mood F43.21 Active confirmed 30664404 Problem Lichen sclerosus L90.0 Active confirmed 895 266562 Problem Major depressive disorder, r emission status unspecified, unspecified whether recurrent F32.9 Active confirmed 980481701 ALLERGIES No Known Allergies ENCOUNTERS from 1975 to 2021-06-05 Encounter Location Date Provider Diagnosis [id number] [facility] [phone] [place] [address] 11 May, 2021 Janneth Ryan IMMUNIZATIONS Vaccine Route Administration Date [...] hrs for 7 day(s) Oct, Not-Taking Nystatin 369206 UNIT/GM 1 application Externally Twi ce a [...] Information RESULTS No Results REASON FOR VISIT last office note MEDICAL (GENERAL) HISTORY Type Description Date Medical [...] Insured Coverage Start Date Coverage End Date [facility] COMM[employer] PL[employer] [facility] [address] [facility] [phone] IRENE CASTAÑEDA self
--- OUTSIDE RECORDS SUMMARY | 2021-08-26 09:34 | CCD ---
Author Author [facility] Organization [facility] Address Unknown Phone Unavailable Care Team Providers Care Criminology Teacher Name Role Phone Janneth Ryan Unavailable PROBLEMS Type Condition ICD9-CM Code BOS12-NI Code Onset Dates Condition S tatus W/U Status Risk SNOMED Code Notes Problem Depressed mood F32.9 Active confirmed 25695 9004 Problem Allergic rhinitis, unspecifi ed allergic rhinitis trigger, unspecified rhinitis seasonality J30.9 Active confirmed 28406343 Problem Tension headache G44.209 Active confirmed 39 7928086 Problem Steatohepatitis K75.81 Active confirmed 4421 14564 Problem Environmental allergies Z91.09 Active confirmed 099082677 Problem History of anemia Z86.2 Active confirmed 27 5740428 Problem Rosacea L71.9 Active confirmed 201726552 Problem Gastroesophageal reflux disease, esophagitis pre sence not specified K21.9 Active confirmed 248206920 Problem Melanocytic nevi of right upper limb, including shoulder D22.61 Active confirmed 458050750 Problem Melanocytic nevi of trunk D22.5 Active confirmed 698700696 Problem Scabies B86 Active confirmed 502781714 Problem Insomnia, unspecified type G47.00 Active confirmed 879288720 Problem Melanocytic nevi of left upper limb, including shoulder D22.62 Active confirmed 064105178 Problem Type 2 diabetes mellitus wit hout complication, without long-term current use of insulin E11.9 Active confirmed 495632996 Problem VLAD (obstructive sleep apnea) G47.33 Active confirm ed 29436028 Problem Acute right-sided low back pain with right-sided sciatica M54.41 Active confirmed 621224824 Problem Status post gastric bypass for obesity Z98.84 A ctive confirmed 350929413 Problem Seborrheic keratoses L82.1 Active confirmed 989640097 Problem Adjustment disorder with depressed mood F43.21 Active confirmed 31609409 Problem Lichen sclerosus L90.0 Active confirmed 895 599970 Problem Major depressive disorder, r emission status unspecified, unspecified whether recurrent F32.9 Active confirmed 055540732 ALLERGIES No Known Allergies ENCOUNTERS from 1975 to 2021-05-28 Encounter Location Date Provider Diagnosis [facility] Resident [address] [phone] [place] [address] May, Janneth Ryan VLAD (obstructive sle ep apnea) G47.33 IMMUNIZATIONS Vaccine Route Administration Date [...] years REASON FOR REFERRAL from 1975 to 2021-05-28 Reason abnormal nocturnal pulse ox- need home sleep study Diagnosis 1 VLAD (obstructive sleep apnea ) (G47.33) [facility] Referring Provider First Name Janneth Referring Provider Last Name Ryan Referring Provider Specialty Internal Medicine Referred Provider Adria Vargas Referred Provider Specialty Pulmonary Diseases Referral Priority Routine General Notes Bere Forbesette 05/28/2021 9:52 :43 AM > [facility] referral request sent to Tamar Danielle 05/28/2021 11:54:56 AM > [facility] referral to Dr. Vargas done ID# [id number], form faxed.Bere Forbesette 05/28/2021 4:11:38 PM > Referral sent P2P and faxed VITAL SIGNS No information MEDICATIONS Medication SIG [...] hrs for 7 day(s) Oct, Not-Taking Nystatin 069818 UNIT/GM 1 application Externally Twi ce a [...] Information RESULTS No Results REASON FOR VISIT [facility] - Dr Vargas MEDICAL (GENERAL) HISTORY Type Description Date Medical [...] Notes Treatment Notes Treatm ent Clinical Notes May, VLAD (obstructive sleep apnea) (ICD-10 - G47.33) PLAN OF TREATMENT Medication Medication Name Sig Start Date Stop Date traZODone HCl 50 MG 1 tablet at bedtime as neede d Orally Once a day for 30 day(s) Apr, CeleXA 40 MG 1 tab Orally Once a day Ramelteon 8 MG 1 tablet at bedtime as needed Orally Onc e a day for 30 days Apr, Referrals Referral Date Details abnormal nocturnal pulse ox- need home sleep study, Adria Sears Insurance Providers Payer Name Payer Address Payer Phone Insured Name Patient Relati onship to Insured Coverage Start Date Coverage End Date [facility] COMM[employer] PLAN [facility] [address] [facility] [phone] IRENE CASTAÑEDA self
--- OUTSIDE RECORDS SUMMARY | 2021-08-26 09:34 | CCD ---
Author Author [facility] Organization [facility] Address Unknown Phone Unavailable Care Team Providers Care Surface Plate Finisher Name Role Phone Janneth Ryan Unavailable PROBLEMS Type Condition ICD9-CM Code [id number] Code Onset Dates Condition S tatus W/U Status Risk SNOMED Code Notes Problem Depressed mood F32.9 Active confirmed 20757 9004 Problem Allergic rhinitis, unspecifi ed allergic rhinitis trigger, unspecified rhinitis seasonality J30.9 Active confirmed 90214042 Problem Tension headache G44.209 Active confirmed 39 0287527 Problem Steatohepatitis K75.81 Active confirmed 4421 25201 Problem Environmental allergies Z91.09 Active confirmed 999800046 Problem History of anemia Z86.2 Active confirmed 27 6961848 Problem Rosacea L71.9 Active confirmed 974770503 Problem Gastroesophageal reflux disease, esophagitis pre sence not specified K21.9 Active confirmed 720589442 Problem Melanocytic nevi of right upper limb, including shoulder D22.61 Active confirmed 426539003 Problem Melanocytic nevi of trunk D22.5 Active confirmed 895371199 Problem Scabies B86 Active confirmed 233235358 Problem Insomnia, unspecified type G47.00 Active confirmed 917266992 Problem Melanocytic nevi of left upper limb, including shoulder D22.62 Active confirmed 158699260 Problem Type 2 diabetes mellitus wit hout complication, without long-term current use of insulin E11.9 Active confirmed 015073137 Problem VLAD (obstructive sleep apnea) G47.33 Active confirm ed 19312657 Problem Acute right-sided low back pain with right-sided sciatica M54.41 Active confirmed 406413159 Problem Status post gastric bypass for obesity Z98.84 A ctive confirmed 187776862 Problem Seborrheic keratoses L82.1 Active confirmed 309077053 Problem Adjustment disorder with depressed mood F43.21 Active confirmed 53590545 Problem Lichen sclerosus L90.0 Active confirmed 895 347228 Problem Major depressive disorder, r emission status unspecified, unspecified whether recurrent F32.9 Active confirmed 556725933 ALLERGIES No Known Allergies ENCOUNTERS from 1974 to 2021-06-10 Encounter Location Date Provider Diagnosis [address] [facility] [phone] [place] [address] May, Janneth Ryan Insomnia, unspecified type G 47.00 IMMUNIZATIONS Vaccine Route Administration Date Status Hepatitis [...] 6 hrs for 5 day(s) Sep, Not-Taking Multivitamins - 1 tab Orally once daily for 30 days Not-Taking Clobetasol Prop Emollient Base 0.05 % 1 application Ex ternally once or two times weekly for 30 days Mar, Active Vitamin B-12 1000 MCG 1 tablet Orally Once a day for 30 days Not-Taking Nystatin 892641 UNIT/GM 1 application Externally Twi ce a day as needed for 30 day(s) February, Active traZODone HCl 50 MG 1 tablet at bedtime as neede d Orally Once a day for 30 day(s) Apr, Active February Have - as directed february dog for emotional support Daily for 30 Days Nov, Active CeleXA 40 MG 1 tab Orally Once a day Active Valtrex 1 GM 2 tablet Orally Twice daily for 1 days Jan Not-Taking Diflucan 200 MG 2 tablets day one. Then 1 tablet daily Orally daily for 14 Not-Taking Amoxicillin-Pot Clavulanate 875-125 MG 1 tablet Orally every 12 hrs for 7 day(s) Oct, Not-Taking Triamcinolone Acetonide 0.1 % apply to affected areas on both legs Externally BID for 7 days Aug, Not-Taking 28-0.8 MG 1 tablet Orally Once a day Active Macrobid 100 MG 1 capsule Orally Twice daily for 10 day(s) Jan, Not-Taking Soolantra 1 % 1 application Externally Once a day Not-Taking Claritin 10 MG 1 tablet Orally Once a day for 30 Days Active Sulfacetamide Sodium-Sulfur 10-5 % WASH THE AFFECTED A MARTA ON FACE EVERY EVENING External for 30 Not-Taking Ramelteon 8 MG 1 tablet at bedtime as needed Orally Once a day for 30 days Apr, Active PROCEDURES No Information RESULTS No Results REASON FOR VISIT taryn Silvazadone MEDICAL (GENERAL) HISTORY Type Description Date Medical [...] Treatment Notes Treatm ent Clinical Notes May, Insomnia, unspecified type (ICD-10 - G47.00) PLAN OF TREATMENT Medication Medication Name Sig Start Date Stop Date CeleXA 40 MG 1 tab Orally Once a day Claritin 10 MG 1 tablet Orally Once a day for 30 Days Ramelteon 8 MG 1 tablet at bedtime as needed Orally Onc e a day for 30 days Apr, traZODone HCl 50 MG 1 tablet at bedtime as neede d Orally Once a day for 30 day(s) Apr, Insurance Providers Payer Name Payer Address Payer Phone Insured Name Patient Relati onship to Insured Coverage Start Date Coverage End Date [facility] COMM[facility] PLAN [facility] [address] [facility] [phone] IRENE CASTAÑEDA self
[2021-08-26 09:51] LABS: ALBUMIN 3.5 GM/DL (3.2-5.2); ALT/SGPT 26 U/L (12-78); BILIRUBIN,DIRECT 0.1 MG/DL (0.0-0.2); BILIRUBIN,TOTAL 0.5 MG/DL (0.2-1.0); BLOOD UREA NITROGEN 9 MG/DL (7-18); CALCIUM LEVEL 9.2 MG/DL (8.5-10.1); CARBON DIOXIDE LEVEL 29 MEQ/L (21-32); CHLORIDE LEVEL 104 MEQ/L (98-107); CREATININE FOR GFR 0.67 MG/DL (0.55-1.30); ETHYL ALCOHOL (ETHANOL) < 0.003 % (0.000-0.010); GLOMERULAR FILTRATION RATE > 60.0 (>58); GLUCOSE, FASTING 87 MG/DL (70-100); SALICYLATE LEVEL 5.4 MG/DL (5.0-30.0); SODIUM LEVEL 139 MEQ/L (136-145); TOTAL PROTEIN 7.3 GM/DL (6.4-8.2)
[2021-08-26 09:52] LABS: ACETAMINOPHEN LEVEL < 2.0 UG/ML (10.0-30.0)
[2021-08-26] MEDS ORDERED: TRAZ-186 PO (11:50)
[2021-08-26] MEDS ORDERED: VITMTA PO (11:50)
[2021-08-26] MEDS ORDERED: NYST1POW9 TOP (11:50)
[2021-08-26] MEDS ORDERED: HOME MED LIST COMPLETE! XX SCH (11:55)
--- NOTE | 2021-08-26 13:25 | MHIPNPDOC ---
[facility] Progress Note Progress Note DATE OF SERVICE: 08/26/21 Patient presented by JEY, does not meet criteria for involuntary admission, refuse voluntary admission, patient was having thoughts of self harming rather than suicidal thoughts, although at one point had thoughts of crashing her car but stated she would never go through with this, has been reporting some depression in context of chronic relationship struggles, financial issues, had left 1 year ago and his 2 kids age 16 and 19. Per collateral from 19-year-old daughter per PSA has not displayed any suicidal behaviors or made any concerning statements, behavior has not changed recently feels that she is safe to come home and not the patient can stay with them without issue, patient feels the same way and safe to return home. Patient was made an outpatient appointment with [facility] on September 02 with Tanja for intake, safety plan was created to avoid any risk for self-harm, no weapons at home reported. Patient feels safe to return home, denies currently having any suicidal ideation, intent or plan. Denies any homicidal ideation, intent or plan. Patient future oriented, would never harm himself for her kids wants to work on improving financial situation. Vital Signs Vital Signs Date Time Temp Pulse Resp B/P (MAP) Pulse Ox O2 Delivery O2 Flow Rate FiO2 08/26/21 08:08 97.9 86 15 135/78 (97) 100 Room Air Laboratory Data 24H Labs Laboratory Tests 2 08/26/21 08:43: Urine Opiates Screen NEGATIVE, Urine Methadone Screen NEGATIVE, Urine Barbiturates Screen NEGATIVE, Urine Phencyclidine Screen NEGATIVE, Urine Amphetamines Screen NEGATIVE, Urine Benzodiazepines Screen NEGATIVE, Urine Cocaine Metabolite Screen NEGATIVE, Urine Cannabinoids Screen NEGATIVE 08/26/21 08:44: Nucleated Red Blood Cells % (auto) 0.0, Anion Gap 6L, Glomerular Filtration Rate > 60.0, Calcium Level 9.2, Total Bilirubin 0.5, Direct Bilirubin 0.1, Aspartate Amino Transf (AST/SGOT) 24, Alanine Aminotransferase (ALT/SGPT) 26, Alkaline Phosphatase 89, Total Protein 7.3, Albumin 3.5, Albumin/Globulin Ratio 0.9L, Thyroid Stimulating Hormone (TSH) 1.000, Salicylates Level 5.4, Acetaminophen Level < 2.0L, Ethyl Alcohol Level < 0.003 CBC/BMP Laboratory Tests 08/26/21 08:44 Current Medications Current Medications Medications (Trade) Dose Ordered Sig/Anastasia Route PRN Reason Start Time Stop Time Status Last Admin Dose Admin Home Med (Home Med List Complete!) ASDIRECTED XX 08/26/21 11:55 08/26/21 11:53 DC Allergies Coded Allergies: No Known Allergies (Unverified , 08/26/21) DHIRAJ CORTEZ MD Aug 26, 2021 13:25
[2021-08-26 13:30] VITALS: BP 124/85
== END 2021-08-26 13:40 | disposition home or self-care (01) ==
LOC: M ED 08:06 → CANBEDREQ 12:23 → M ED 13:40
DX: R45.851 Suicidal ideations (principal); F32.9 Major depressive disorder, single episode, unspecified; E11.9 Type 2 diabetes mellitus without complications; K21.9 Gastro-esophageal reflux disease without esophagitis; F17.200 Nicotine dependence, unspecified, uncomplicated; Z79.899 Other long term (current) drug therapy; Z98.890 Other specified postprocedural states

== ENCOUNTER → 2022-06-15 | Outpatient (REF) | payer OTHER, MEDICAID ==
[~2022-06-15] MED LIST changes: +LEXA1TAB PO; +NYST1POW9 TOP; -TOPI25CA3 PO; +TOPI25CA5 PO; +TRAZ-186 PO; +VITMTA PO
== END ==
LOC: M LAB REF 16:17
PROVIDERS: ATTEND Physician Assistant
DX: J06.9 Acute upper respiratory infection, unspecified (principal)

== ENCOUNTER → 2022-12-27 | Outpatient (REF) | payer OTHER | LOC: M WUC 16:19 | PROVIDERS: ATTEND Student in an Organized Health Care Education/Training Program | DX: R30.0 Dysuria (principal) ==

== ENCOUNTER → 2022-12-29 | Outpatient (CLI) | payer OTHER | LOC: M PLAIMG 14:26 | PROVIDERS: ATTEND Student in an Organized Health Care Education/Training Program | DX: R55 Syncope and collapse (principal) ==

== ENCOUNTER → 2022-12-29 | Outpatient (CLI) | payer OTHER ==
[2022-12-29 17:44] LABS: HEMATOCRIT 38.6 % (36.0-47.0); HEMOGLOBIN 12.3 g/dl (12.0-15.5); MEAN CORPUSCULAR HEMOGLOBIN 28.9 pg (27.0-33.0); MEAN CORPUSCULAR HGB CONC 31.9 g/dl (32.0-36.5); MEAN CORPUSCULAR VOLUME 90.8 fl (80.0-96.0); PLATELET COUNT, AUTOMATED 333 10^3/uL (150-450); RED BLOOD COUNT 4.25 10^6/uL (4.00-5.40); WHITE BLOOD COUNT 9.3 10^3/uL (4.0-10.0)
[2022-12-29 18:14] LABS: ALBUMIN 3.4 G/DL (3.2-5.2); ALKALINE PHOSPHATASE 83 U/L (46-116); ALT/SGPT 17 U/L (7.0-40); AST/SGOT 27 U/L (<34); BILIRUBIN,TOTAL 0.3 MG/DL (0.3-1.2); BLOOD UREA NITROGEN 10 MG/DL (9-23); CALCIUM LEVEL 9.2 MG/DL (8.5-10.1); CARBON DIOXIDE LEVEL 29 MMOL/L (20-31); CHLORIDE LEVEL 103 MMOL/L (98-107); CREATININE FOR GFR 0.59 MG/DL (0.55-1.30); GLOMERULAR FILTRATION RATE > 60.0 (>58); GLUCOSE, FASTING 70 MG/DL (60-100); POTASSIUM SERUM 4.7 MMOL/L (3.5-5.1); SODIUM LEVEL 137 MMOL/L (136-145); THYROID STIMULATING HORMONE 2.679 uIU/ML (0.55-4.78); TOTAL PROTEIN 6.6 G/DL (5.7-8.2)
[2022-12-29 18:17] LABS: APPEARANCE, URINE HAZY (CLEAR); BACTERIA, URINE AUTO NEGATIVE (NEGATIVE); BILIRUBIN, URINE AUTO NEGATIVE (NEGATIVE); BLOOD, URINE BLOOD NEGATIVE (NEGATIVE); COLOR, URINE AMBER (YELLOW); GLUCOSE, URINE (UA) AUTO NEGATIVE (NEGATIVE); KETONE, URINE AUTO NEGATIVE (NEGATIVE); LEUKOCYTE ESTERASE, URINE AUTO NEGATIVE (NEGATIVE); MUCUS, URINE SMALL (NEGATIVE); NITRITE, URINE AUTO NEGATIVE (NEGATIVE); PROTEIN, URINE AUTO NEGATIVE (NEGATIVE); RBC, URINE AUTO 0 /HPF (0-3); SPECIFIC GRAVITY URINE AUTO 1.012 (1.002-1.035); SQUAMOUS EPITHELIAL CELL UR AU 0 /HPF (0-6); UROBILINOGEN, URINE AUTO 0.2 mg/dL (0.0-2.0); WBC, URINE AUTO 1 /HPF (0-3)
== END ==
LOC: M PLALAB 15:23
PROVIDERS: ATTEND Student in an Organized Health Care Education/Training Program
DX: R55 Syncope and collapse (principal); R30.0 Dysuria

== ENCOUNTER → 2023-03-15 | Outpatient (CLI) | payer OTHER ==
[2023-03-17 06:08] LABS: MUMPS VIRUS IgG ANTIBODY <9.0 AU/mL (Immune >10.9); RUBELLA IgG FOR TORCH EVAL 3.53 index (Immune >0.99)
== END ==
LOC: M PLALAB 15:20
PROVIDERS: ATTEND Student in an Organized Health Care Education/Training Program
DX: Z09 Encounter for follow-up examination after completed treatment for conditions other than malignant neoplasm (principal)

== ENCOUNTER → 2023-03-15 | Outpatient (REF) | payer OTHER | LOC: M SFHCPLAZ 15:14 | PROVIDERS: ATTEND Internal Medicine Hematology | DX: Z53.9 Procedure and treatment not carried out, unspecified reason (principal) ==

== ENCOUNTER → 2023-08-10 | Outpatient (REF) | payer OTHER ==
[~2023-08-10] MED LIST changes: -MISO200T56 PO; +MISO200T83 PO
== END ==
LOC: M LAB REF 12:38
PROVIDERS: ATTEND Nurse Practitioner Family
DX: R30.0 Dysuria (principal)

== ENCOUNTER → 2023-09-23 | Outpatient (CLI) | payer OTHER | LOC: M PLAIMG 08:12 | DX: M54.32 Sciatica, left side (principal); M47.816 Spondylosis without myelopathy or radiculopathy, lumbar region ==

== ENCOUNTER → 2024-03-14 | Outpatient (CLI) | payer OTHER ==
[2024-03-14 14:47] LABS: HEMATOCRIT 36.9 % (36.0-47.0); HEMOGLOBIN 11.7 g/dl (12.0-15.5); MEAN CORPUSCULAR HEMOGLOBIN 26.8 pg (27.0-33.0); MEAN CORPUSCULAR HGB CONC 31.7 g/dl (32.0-36.5); MEAN CORPUSCULAR VOLUME 84.4 fl (80.0-96.0); PLATELET COUNT, AUTOMATED 358 10^3/uL (150-450); RED BLOOD COUNT 4.37 10^6/uL (4.00-5.40); WHITE BLOOD COUNT 9.2 10^3/uL (4.0-10.0)
[2024-03-14 17:26] LABS: BLOOD UREA NITROGEN 10 MG/DL (9-23); CALCIUM LEVEL 9.1 MG/DL (8.5-10.1); CARBON DIOXIDE LEVEL 26 MMOL/L (20-31); CHLORIDE LEVEL 106 MMOL/L (98-107); CREATININE FOR GFR 0.64 MG/DL (0.55-1.30); GLOMERULAR FILTRATION RATE > 60.0 (>58); GLUCOSE, FASTING 78 MG/DL (60-100); IRON (FE) 13 UG/DL (50-170); PERCENT SATURATION 3.5 % (13.2-45.0); POTASSIUM SERUM 4.6 MMOL/L (3.5-5.1); SODIUM LEVEL 136 MMOL/L (136-145); TOTAL 25(OH) VITAMIN D 36.3 NG/ML (20.0-100.0); TOTAL IRON BINDING CAPACITY 369 UG/DL (250-425)
[2024-03-14 17:27] LABS: FOLATE 23.6 NG/ML (>5.4)
[2024-03-14 17:28] LABS: VITAMIN B12 LEVEL 722 PG/ML (211-911)
== END ==
LOC: M PLALAB 09:17
PROVIDERS: ATTEND Student in an Organized Health Care Education/Training Program
DX: Z98.84 Bariatric surgery status (principal)

== ENCOUNTER → 2024-07-25 | Outpatient (REF) | LOC: M PLAIMG 15:08 | PROVIDERS: ATTEND Internal Medicine | DX: M54.9 Dorsalgia, unspecified (principal) ==

== ENCOUNTER → 2024-12-05 | Outpatient (CLI) | payer OTHER ==
[~2024-12-05] MED LIST changes: +NYST1POW3 TOP; -NYST1POW9 TOP
[2024-12-05 14:33] LABS: HEMATOCRIT 41.8 % (36.0-47.0); HEMOGLOBIN 13.6 g/dl (12.0-15.5); MEAN CORPUSCULAR HEMOGLOBIN 30.6 pg (27.0-33.0); MEAN CORPUSCULAR HGB CONC 32.5 g/dl (32.0-36.5); MEAN CORPUSCULAR VOLUME 94.1 fl (80.0-96.0); PLATELET COUNT, AUTOMATED 310 10^3/uL (150-450); RED BLOOD COUNT 4.44 10^6/uL (4.00-5.40)
[2024-12-05 14:45] LABS: ALBUMIN 3.4 G/DL (3.2-5.2); ALKALINE PHOSPHATASE 103 U/L (35-104); ALT/SGPT 18 U/L (7.0-40); AST/SGOT 22 U/L (<34); BILIRUBIN,TOTAL 0.4 MG/DL (0.3-1.2); BLOOD UREA NITROGEN 12 MG/DL (9-23); CALCIUM LEVEL 9.3 MG/DL (8.5-10.1); CARBON DIOXIDE LEVEL 29 MMOL/L (20-31); CHLORIDE LEVEL 104 MMOL/L (98-107); CREATININE FOR GFR 0.75 MG/DL (0.55-1.30); GLOMERULAR FILTRATION RATE > 60.0 (>51); GLUCOSE, FASTING 84 MG/DL (60-100); POTASSIUM SERUM 4.6 MMOL/L (3.5-5.1); SODIUM LEVEL 139 MMOL/L (136-145); TOTAL PROTEIN 7.1 G/DL (5.7-8.2)
[2024-12-05 14:47] LABS: FOLATE 21.3 NG/ML (>5.4); VITAMIN B12 LEVEL 340 PG/ML (211-911)
[2024-12-05 15:24] LABS: HEMOGLOBIN A1c 5.2 % (4.0-6.0)
== END ==
LOC: M PLALAB 11:10
PROVIDERS: ATTEND Student in an Organized Health Care Education/Training Program
DX: Z13.1 Encounter for screening for diabetes mellitus (principal)

== ENCOUNTER → 2025-05-08 | Outpatient (CLI) | payer OTHER ==
[2025-05-08 15:49] LABS: BASO # 0.1 10^3/uL (0.0-0.2); BASO % 1.1 % (0.0-1.0); EOS # 0.1 10^3/uL (0.0-0.5); EOS % 1.2 % (0.0-3.0); LYMPH # 2.3 10^3/uL (1.5-5.0); LYMPH % 28.2 % (24.0-44.0); MONO # 0.8 10^3/uL (0.0-0.8); MONO % 9.8 % (2.0-8.0); NEUTROPHILS # 4.9 10^3/uL (1.5-8.5); NEUTROPHILS % 59.2 % (36.0-66.0); PLATELET COUNT, AUTOMATED 310 10^3/uL (150-450)
[2025-05-08 16:02] LABS: ALT/SGPT 16 U/L (7.0-40); AST/SGOT 26 U/L (<34); CALCIUM LEVEL 8.9 MG/DL (8.5-10.1); CARBON DIOXIDE LEVEL 28 MMOL/L (20-31); CHLORIDE LEVEL 100 MMOL/L (98-107); CREATININE FOR GFR 0.76 MG/DL (0.55-1.30); GLOMERULAR FILTRATION RATE > 90.0 (>51); POTASSIUM SERUM 4.8 MMOL/L (3.5-5.1); SODIUM LEVEL 137 MMOL/L (136-145)
[2025-05-08 16:04] LABS: VITAMIN B12 LEVEL 621 PG/ML (211-911)
[2025-05-14 03:42] LABS: VITAMIN E(ALPHA TOCOPHEROL) 11.2 mg/L (5.7-19.9); VITAMIN E(GAMMA TOCOPHEROL) < 1.0 mg/L (<=4.3)
== END ==
LOC: M PLALAB 12:17
PROVIDERS: ATTEND Psychiatry & Neurology Neurology
DX: E03.9 Hypothyroidism, unspecified (principal); R25.1 Tremor, unspecified; D51.9 Vitamin B12 deficiency anemia, unspecified; E51.9 Thiamine deficiency, unspecified; E53.1 Pyridoxine deficiency; E56.0 Deficiency of vitamin E

== ENCOUNTER → 2025-05-08 | Outpatient (REF) | payer OTHER | LOC: M SFHCPLAZ 09:17 | PROVIDERS: ATTEND Student in an Organized Health Care Education/Training Program | DX: D22.21 Melanocytic nevi of right ear and external auricular canal (principal) ==